=== PATIENT | female | born 1985 | race Caucasian/White ===

== ENCOUNTER 2020-12-06 12:59 | Emergency (ER) | payer OTHER, SELFPAY ==
[2020-12-06 13:17] VITALS: BP 110/61; PULSE 85; RESP 18; TEMP 36.8; O2SAT 99; BMI 24.1
--- NOTE | 2020-12-06 13:22 | PC.NURSE ---
PT STATES SHE IS 3 MONTHS DUE DATE IS 06/11/21 OBGYN AT [facility].
--- NOTE | 2020-12-06 13:30 | ED_ITS ---
HPI - Skin/Abscess/Foreign Bdy General Chief complaint: Skin/Abscess/Foreign Body Stated complaint: abscess Time Seen by Provider: 12/06/20 13:25 Source: patient Mode of arrival: ambulatory Limitations: no limitations History of Present Illness HPI narrative: Swelling and redness behind left ear times several days. No fevers or chills. Patient is currently 3 months followed at [facility]. No -related complaints MD complaint: abscess/boil Related Data Previous Rx's Medication Instructions Recorded clindamycin HCl 150 mg PO TID #21 cap 12/06/20 Allergies Allergy/AdvReac Type Severity Reaction Status Date / Time hydromorphone [Hydromorphone] Allergy Severe HIVES AND Verified 12/06/20 13:19 SWELLING codeine [CODEINE] Allergy Intermediate RASH Verified 12/06/20 13:19 amoxicillin [AMOXICILLIN] Allergy Unknown VOMIT Verified 12/06/20 13:19 Vicodin Allergy Unknown hives Verified 12/06/20 13:19 From Vicodin Allergy Severe HIVES AND Uncoded 07/11/20 15:49 SWELLING Dilaudid Allergy Unknown anaphylaxis Uncoded 09/22/11 00:00 Review of Systems Review of Systems: Yes all other systems are reviewed and are negative Constitutional: Constitutional: Reports no additional constitutional complaints, Denies body ache(s), Denies chills, Denies fever(s), Denies headache(s) and Denies weakness Eyes: Eyes: Reports no additional eye complaints and Denies change in vision ENT: Reports system reviewed and no additional complaints, except as documented, Denies dizziness, Denies headache(s), Denies nasal congestion, Denies nasal discharge and Denies neck pain Cardiovascular: Cardiovascular: Reports no additional cardiovascular complaints, Denies chest pain, Denies leg edema and Denies dyspnea Respiratory: Respiratory: Reports no additional respiratory complaints, Denies cough and Denies dyspnea Gastrointestinal: Gastrointestinal: Reports no additional gastrointestinal complaints, Denies abdominal pain, Denies diarrhea, Denies nausea and Denies vomiting Genitourinary: Genitourinary: Reports no additional female genitourinary complaints and Denies urinary incontinence Musculoskeletal: Musculoskeletal: Reports no additional musculoskeletal complaints, Denies back pain, Denies arthralgias, Denies joint swelling, Denies neck pain, Denies numbness and Denies tingling Integumentary/Breasts: Skin/Breast: Reports system reviewed and no additional complaints, except as docu, Reports furuncle, Reports swelling and Denies rash Neurologic: Reports system reviewed and no additional complaints, except as documented, Denies Abnormal speech present, Denies dizziness, Denies headache(s), Denies numbness, Denies tingling and Denies weakness PMFSH Past Medical History Attestation statement: The following information was validated with the patient. Source: old records reviewed and nursing notes reviewed Medical History No known health problems Social History Social History Advance Directives: Yes Advance Directives Information Provided: No Advance Directives on File: No Physical Exam Vital Signs: Vital Signs: Last Vital Signs Temp 98.3 F 12/06/20 13:17 Pulse 85 12/06/20 13:17 Resp 18 12/06/20 13:17 BP 110/61 12/06/20 13:17 Pulse Ox 99 12/06/20 13:17 Body Mass Index 24.1 Const: General: cooperative, healthy appearing, comfortable and no acute distress Orientation/consciousness: patient oriented x3 Limitations: no limitations HENMT: Other: Behind left ear there is a medium area of fluctuance, tenderness, erythema. Head: Yes normal to inspection Ears: hearing grossly normal bilaterally General nose exam: Normal external nose present Face and sinus: Yes normal facial exam Mouth: Normal oral and palatal mucosa present Throat: Yes posterior oropharynx normal Eyes: General: appearance normal, both eyes and all related structures Pupils: Equal, round and reactive pupils present Neck: Neck: Yes normal visual inspection Chest: Chest palpation & inspection: normal inspection of the chest Resp: Effort & Inspection: normal respiratory effort Auscultation: clear to auscultation bilaterally Cardio: Rate: regular rate Rhythm: regular rhythm Peripheral pulses: Peripheral pulses 2+ throughout GI: Inspection: Yes normal to inspection Palpation (GI): Soft to palpation and nontender Auscultation: normal bowel sounds Back/Spine/Pelvis: Thoracic/Lumbar Spine: thoracic and lumbar spine normal to inspection Skin: General skin exam: no rashes or lesions noted Neuro: General: patient oriented x3, no focal motor deficits and normal sensation to monofilament Cranial nerves: Yes Equal, round and reactive pupils present Cognition (Neuro): normal cognition Speech: No Abnormal speech present Gait exam (Neuro): Normal gait present Motor exam (neuro): 5/5 motor strength present throughout Extrem: General: Yes normal to inspection Course Course Course Narrative: Abscess behind left ear. Will need I&D. Currently 3 months . No -related complaints. 1415-See I&D note. Will start patient on oral antibiotics. Reviewed worrisome signs and symptoms when to return to the emergency depart ment. Comfortable discharge home. Procedures Abscess I/D Site: other (Post auricular) Side (if applicable): left Local Anesthetic: lidocaine 1% Technique: incised with blade Sent for culture/gram staining?: No Irrigation: No Packing used?: none MDM - Skin/Abscess/Foreign Bdy Medical Records Attestation: I reviewed the patient's medical records. Lab Data Attestation: I reviewed the patient's lab results. Discharge Plan Discharge Clinical Impression: Abscess of skin or subcutaneous tissue Qualifiers: Site of cutaneous abscess: unspecified site Qualified Code(s): L02.91 - Cutaneous abscess, unspecified Patient Disposition: Home, Self-Care Instructions: Abscess (ED) Additional Instructions: warm compresses and/or warm tea bags four times daily Prescriptions: New clindamycin HCl 150 mg capsule 150 mg PO TID Qty: 21 RF: 0 Referrals: Physician,Unknown [Primary Care Provider] - 2 days Interventions: ED Discharge Assessment Last Done: 12/06/20 14:36 Discharge Date/Time: 12/06/20 14:36
[2020-12-06] MEDS: Lidocaine HCl 1 % MPF 5 ML VIAL SUBCUT (13:42)
== END 2020-12-06 14:36 | disposition home or self-care (01) ==
PROVIDERS: Emergency Provider Emergency Medicine Emergency Medical Services
DX: O26.893 Other specified pregnancy related conditions, third trimester (principal); H60.02 Abscess of left external ear; Z3A.00 Weeks of gestation of pregnancy not specified
CPT/HCPCS: 10060; 99283; 99284

== ENCOUNTER 2021-02-27 22:24 | Emergency (ER) | payer OTHER, SELFPAY ==
[2021-02-27 22:27] VITALS: BP 100/54; PULSE 85; RESP 18; TEMP 36.7; O2SAT 98; BMI 29.2
--- NOTE | 2021-02-27 23:35 | ED.SKABFB ---
HPI - Skin/Abscess/Foreign Bdy General Chief complaint: Skin/Abscess/Foreign Body Stated complaint: Abscess Time Seen by Provider: 02/27/21 23:22 Source: patient Mode of arrival: ambulatory History of Present Illness HPI narrative: 35-year-old female here for wound check, denies any fevers, chills, limited range of motion at left elbow and reports that overall everything looks much better and she continues to take her antibiotics. Related Data Previous Rx's Medication Instructions Recorded clindamycin HCl 150 mg PO TID #21 cap 12/06/20 Allergies Allergy/AdvReac Type Severity Reaction Status Date / Time hydromorphone [Hydromorphone] Allergy Severe HIVES AND Verified 12/06/20 13:19 SWELLING codeine [CODEINE] Allergy Intermediate RASH Verified 12/06/20 13:19 amoxicillin [AMOXICILLIN] Allergy Unknown VOMIT Verified 12/06/20 13:19 Vicodin Allergy Unknown hives Verified 12/06/20 13:19 From Vicodin Allergy Severe HIVES AND Uncoded 07/11/20 15:49 SWELLING Dilaudid Allergy Unknown anaphylaxis Uncoded 09/22/11 00:00 Review of Systems Review of Systems: Pertinent positives and negatives as stated in HPI 10 point review of systems otherwise negative. PMFSH Past Medical History Source: nursing notes reviewed Medical History No known health problems Social History Social History Advance Directives: No Advance Directives Information Provided: No Patient : No Physical Exam Vital Signs: Vital Signs: Last Vital Signs Temp 98.0 F 02/27/21 22:27 Pulse 85 02/27/21 22:27 Resp 18 02/27/21 22:27 BP 100/54 L 02/27/21 22:27 Pulse Ox 98 02/27/21 22:27 Body Mass Index 29.2 VITAL SIGNS: Reviewed. GENERAL: Well developed, well nourished, in no acute distress. HEAD: Normocephalic/atraumatic NECK: Supple, no adenopathy LUNGS: Normal breath sounds. No adventitious sounds or accessory muscle use. SpO2<98> CARDIOVASCULAR: Regular rate and rhythm without noted murmurs ABDOMEN: Soft, non-tender, non-distended with bowel sounds. LEFT ANTECUBITAL: The site is much better when compared to images on patient's phone, there is no fluctuance, erythema and there is noted firmness in the deep tissue which is consistent with healing, neurovascularly intact distal, full range of motion noted at the elbow. NEUROLOGIC: Alert and oriented x 4. Course Course Course Narrative: 35-year-old female history and clinical presentation of well healing animal bite and currently on medications. There is no evidence of abscess or limitations in range of motion and patient continues to take antibiotics. She was reassured and discharged in stable condition. Discharge Plan Discharge Prescriptions: No Action clindamycin HCl 150 mg capsule 150 mg PO TID Qty: 21 RF: 0
[2021-02-27 23:50] VITALS: BP 96/58; PULSE 78; RESP 15; O2SAT 100
--- NOTE | 2021-02-27 23:59 | ED_ITS ---
HPI - Skin/Abscess/Foreign Bdy General Chief complaint: Skin/Abscess/Foreign Body Stated complaint: Abscess Time Seen by Provider: 02/27/21 23:22 Source: patient Mode of arrival: ambulatory History of Present Illness HPI narrative: 35-year-old gravid female with worsening left labial swelling and redness over the past 3 days despite attempting to use warm moist compresses. Patient states that this started as a folliculitis as had these in the past. Otherwise, she denies any fevers, chills. Related Data Previous Rx's Medication Instructions Recorded clindamycin HCl 150 mg PO TID #21 cap 12/06/20 Allergies Allergy/AdvReac Type Severity Reaction Status Date / Time hydromorphone [Hydromorphone] Allergy Severe HIVES AND Verified 12/06/20 13:19 SWELLING codeine [CODEINE] Allergy Intermediate RASH Verified 12/06/20 13:19 amoxicillin [AMOXICILLIN] Allergy Unknown VOMIT Verified 12/06/20 13:19 Vicodin Allergy Unknown hives Verified 12/06/20 13:19 From Vicodin Allergy Severe HIVES AND Uncoded 07/11/20 15:49 SWELLING Dilaudid Allergy Unknown anaphylaxis Uncoded 09/22/11 00:00 Review of Systems Review of Systems: Pertinent positives and negatives as stated in HPI 10 point review of systems is otherwise negative. PMFSH Past Medical History Medical History No known health problems Social History Social History Alcohol intake: never Smoking Status: Never smoker Use of substances other than those prescribed or required for medical reasons: No Advance Directives: No Advance Directives Information Provided: No Patient : No Physical Exam Vital Signs: Vital Signs: Last Vital Signs Temp 98.0 F 02/27/21 22:27 Pulse 78 02/27/21 23:50 Resp 15 02/27/21 23:50 BP 96/58 L 02/27/21 23:50 Pulse Ox 100 02/27/21 23:50 Body Mass Index 29.2 VITAL SIGNS: Reviewed. GENERAL: Well developed, well nourished, in no acute distress. HEAD: Normocephalic/atraumatic EYES: PERRLA, EOMI OROPHARYNX: no oral lesions noted, posterior pharynx clear NECK: Supple, no adenopathy LUNGS: Normal breath sounds. No adventitious sounds or accessory muscle use. SpO2<100> CARDIOVASCULAR: Regular rate and rhythm without noted murmurs ABDOMEN: Soft, non-tender, non-distended with bowel sounds. : Significant erythema, swelling at left labia extending into groin crease with noted fluctuance NEUROLOGIC: Alert and oriented x 4. Course Course Course Narrative: 35-year-old female with history and clinical presentation consistent with abscess secondary to folliculitis, no evidence to suggest Brittany's. Incision and drainage was performed with some expression of pus, however patient was unable to tolerate complete evacuation. She does have follow-up appointment in the morning with her nurse licensed practical and was strongly encouraged to have the area re-evaluated in the morning. Procedures Abscess I/D Site: other (Left labia) Side (if applicable): left Sedation/analgesia: other (LET) Local Anesthetic: lidocaine 2% Amount of anesthesia used (mL): 1 Technique: incised with blade (11) Amount of fluid expressed (mL): 10 Sent for culture/gram staining?: No Irrigation: No Packing used?: none Complications: pain Discharge Plan Discharge Clinical Impression: Abscess of skin or subcutaneous tissue Patient Disposition: Home, Self-Care Instructions: Abscess Incision and Drainage (DC) Additional Instructions: Resume all home medications as prescribed. Follow-up with your doctor 1st thing in the morning and have the groin area re-evaluated. Recommend continuing with warm, moist compresses every 6 hours. Do not hesitate to return to the emergency room should you develop acute worsening of redness, swelling at this area. Prescriptions: No Action clindamycin HCl 150 mg capsule 150 mg PO TID Qty: 21 RF: 0 Referrals: Milind Morales MD [Primary Care Provider] - 2 days (Re-evaluation of abscess left labia)
[2021-02-28] MEDS: Lidocaine/Epineph/Tetracaine 3 ML GEL.PF.APP 2 ML TOPICAL (00:29)
[2021-02-28] MEDS: Lidocaine HCl 2 % MPF 5 ML VIAL INFILTRATI (01:34)
== END 2021-02-28 01:46 | disposition home or self-care (01) ==
PROVIDERS: Emergency Provider Student in an Organized Health Care Education/Training Program; PCP Internal Medicine
DX: N76.4 Abscess of vulva (principal); Z79.899 Other long term (current) drug therapy
CPT/HCPCS: 56405; 99284

== ENCOUNTER 2021-07-10 17:03 | Emergency (ER) | payer OTHER, SELFPAY ==
[2021-07-10 17:09] VITALS: BP 97/66; PULSE 70; RESP 18; TEMP 37; O2SAT 98; BMI 42.0
--- NOTE | 2021-07-10 20:54 | ED.EAR ---
HPI - Ear Problem General Chief complaint: Ear Problems Stated complaint: EAR INFECTION Time Seen by Provider: 07/10/21 20:44 Source: patient and family Mode of arrival: ambulatory Limitations: no limitations History of Present Illness HPI Narrative: 36-year-old female came in for evaluation of left ear pain. This is a 36-year-old female prone to ear infection with multiple ear infections in the past came in with left ear pain since yesterday pain is localized to the left ear with no radiation, no dizziness, no vomiting, no fever, no chills. Related Data Previous Rx's Medication Instructions Recorded clindamycin HCl 150 mg capsule 150 mg PO TID #21 cap 12/06/20 Allergies Allergy/AdvReac Type Severity Reaction Status Date / Time hydromorphone [Hydromorphone] Allergy Severe HIVES AND Verified 07/10/21 17:09 SWELLING codeine [CODEINE] Allergy Intermediate RASH Verified 07/10/21 17:09 amoxicillin [AMOXICILLIN] Allergy Unknown VOMIT Verified 07/10/21 17:09 Vicodin Allergy Unknown hives Verified 07/10/21 17:09 From Vicodin Allergy Severe HIVES AND Uncoded 07/11/20 15:49 SWELLING Dilaudid Allergy Unknown anaphylaxis Uncoded 09/22/11 00:00 Review of Systems Review of Systems: All other systems are reviewed and are negative Constitutional: Reports as per HPI and Reports no additional constitutional complaints Eyes: Reports as per HPI and Reports no additional eye complaints Reports system reviewed and no additional complaints, except as documented Cardiovascular: Reports as per HPI and Reports no additional cardiovascular complaints Respiratory: Reports as per HPI and Reports no additional respiratory complaints Gastrointestinal: Reports as per HPI and Reports no additional gastrointestinal complaints Genitourinary: Reports no additional female genitourinary complaints Musculoskeletal: Reports no additional musculoskeletal complaints Skin/Breast: Reports system reviewed and no additional complaints, except as docu Psychiatric: Reports no additional psychiatric complaints Endocrine: Reports no additional endocrine complaints Hematologic/Lymphatic: Reports no additional hematologic/lymphatic complaints Allergic/Immunologic: Reports no additional allergic/immunologic complaints Reports system reviewed and no additional complaints, except as documented and Reports Abnormal speech present [facility] Past Medical History Medical History No known health problems Social History Social History Alcohol intake: never Advance Directives: No Physical Exam Vital Signs: Vital Signs: Last Vital Signs Temp 98.6 F 07/10/21 17:09 Pulse 70 07/10/21 17:09 Resp 18 07/10/21 17:09 BP 97/66 07/10/21 17:09 Pulse Ox 98 07/10/21 17:09 Body Mass Index 42.0 Vital signs have been reviewed as appeared to be correct. Blood pressure normal. Heart rate normal. Respiration rate normal. Temperature normal. Oxygen saturation normal. Appearance: Alert. Oriented X3. No acute distress. Head: Normal external exam. Normocephalic. Atraumatic. No Morrissey signs noted. No raccoon eyes noted Eyes: PERRLA. EOMI. Conjunctiva and sclera normal. Eyelids normal. ENT: Left ear TM is erythematous, external canal has no discharge, moderate amount of cerumen in the external canal. but Pharynx normal. Uvula midline. Moist mucous membranes. No trismus noted. No drooling noted. No muffled voice noted. Neck: Normal inspection. Neck supple. FROM. No adenopathy. Thyroid Normal. No meningeal signs. No neck mass noted. CVS: Normal heart rate and rhythm. Heart sound normal. No murmurs noted. Pulses normal throughout. Respiratory: No respiratory distress. Painless inspiration. Breath sounds normal. No wheezes/rales/rhonchi noted. Chest nontender. No accessory muscle usage noted or decreased air movement noted. Abdomen: Soft and nontender. Bowel sounds normal in all 4 quadrants. No distention noted. No organomegaly noted. No visible injury noted. Back: No CVA tenderness. Full range of motion noted. Skin: Skin warm and dry. Normal skin color. Normal skin turgor. No rashes/lesions/lacerations noted. Extremities: No lower extremity edema. Extremities exhibit normal range of motion. Extremities nontender. Neuro: Oriented X 3. Cranial nerve exam: II-XII are grossly intact No motor deficit. No sensory deficit. Reflexes normal. Course Course Course Narrative: Assessment and plan. 36-year-old female came in for evaluation for left ear pain, physical exam and patient's history is consistent with left ear infection. Start the patient on NSAIDs/Augmentin (patient had 1 time vomiting with amoxicillin in the past) will try Augmentin in the emergency department and to watch the patient for any side effect. Reevaluation(s) Reevaluation #1: Despite I explained to the patient that we need to give her Augmentin in the emergency department and watch her for 20 minutes make sure there is no side effect or allergy reaction for Augmentin but patient left before Augmentin was given. Time: 21:26 Discharge Plan Discharge Clinical Impression: Otitis media Patient Disposition: Home, Self-Care Instructions: Ear Infection (ED) Prescriptions: No Action clindamycin HCl 150 mg capsule 150 mg PO TID Qty: 21 RF: 0 Referrals: [facility] [Primary Care Provider] - 2 days
--- NOTE | 2021-07-10 21:02 | PC.NURSE ---
WENT TO GIVE MEDICATION AND PT WAS NO LONGER IN ROOM RETURNED TO [facility].
--- NOTE | 2021-07-10 21:03 | PC.NURSE ---
PT WAS NO LONGER IN ROOM AT MEDICATION PASS PT HAD ASKED SEVERAL TIME THE TIME FRAME OF WHEN THE DOCTOR WOULD SEE THEM AND THEY WERE TOLD THAT WE COULD NOT GIVE AN EXACT TIME BUT THEY SHOULD BE SEEN IN ORDER AND THEY WERE 2ND TO BE SEEN. DR. PALUMBO WENT IN TO SEE PT AND THEN HE ORDER MEDS AND THEY WERE ALREAD OUT OF THE ROOM BEFORE MED COULD BE PASSED.
--- NOTE | 2021-07-10 21:22 | PC.NURSE ---
DR PALUMBO WANTED PT TO BE WATCHED ON AUGMENTIN BUT PT LEFT BEFORE MEDICATION COULD BE GIVEN PT STATES IT CAUSES NAUSEA UNABLE TO WATCH PT SCRIPT SENT TO PHARMACY DR. HICKS AWARE.
== END 2021-07-10 21:38 | disposition left against medical advice (07) ==
PROVIDERS: Emergency Provider Emergency Medicine
DX: H66.92 Otitis media, unspecified, left ear (principal); Z79.899 Other long term (current) drug therapy
CPT/HCPCS: 99283

== ENCOUNTER 2021-09-19 15:06 | Emergency (ER) | payer OTHER, SELFPAY ==
[2021-09-19 15:52] VITALS: BP 116/69; PULSE 81; RESP 17; TEMP 36.8; O2SAT 100; BMI 27.6
--- NOTE | 2021-09-19 17:09 | PC.NURSE ---
PT NOT IN WAITING ROOM WHEN CALLED. CALLED PATIENT'S CELL PHONE AND LEFT A MESSAGE PATIENT WAS PREVIOUSLY WAITING IN HER CAR. SHE REPORTED I DIDN'T LIKE BE IN THE WAITING ROOM WITH PEOPLE VOMITING
== END 2021-09-19 18:21 | disposition left against medical advice (07) ==
PROVIDERS: Emergency Provider Emergency Medicine; PCP Internal Medicine
DX: L02.419 Cutaneous abscess of limb, unspecified (principal)
CPT/HCPCS: 99281; 99282

== ENCOUNTER 2021-09-19 20:49 | Emergency (ER) | payer OTHER, SELFPAY ==
[2021-09-19 21:07] VITALS: BP 112/55; PULSE 83; RESP 18; TEMP 36.8; O2SAT 96; BMI 27.6
--- NOTE | 2021-09-19 21:25 | ED.SKABFB ---
HPI - Skin/Abscess/Foreign Bdy General Chief complaint: Skin/Abscess/Foreign Body Stated complaint: Abscess Time Seen by Provider: 09/19/21 21:11 Source: patient Mode of arrival: ambulatory Limitations: no limitations History of Present Illness HPI narrative: 36-year-old female presents to the ER with the left inguinal abscess that has been present for about the last 7 days. She reports the pain is 10/10. She was here earlier this afternoon but left because of the wait. She is back after having a couple shots of hard liquor. She reports a history of several abscesses in this area. She was told by general surgeon that she needed to get in at procedure done to help prevent these abscesses from forming but she is scared to get the procedure done. She denies any fevers at home she attempted to drain the abscess with a safety pain without success. She has also been using warm compresses there several times a day and taking warm baths with no improvement. MD complaint: abscess/boil Onset (ago): week(s) (1) Tetanus up to date: yes Location: genitals Severity: severe Severity scale (1-10): 10 Quality: burning and aching Pain Consistency: constant Relieving factors: none Exacerbating factors: none Context: none Associated symptoms: denies other symptoms Treatments prior to arrival: attempted to drain pus at home Related Data Previous Rx's Medication Instructions Recorded clindamycin HCl 150 mg capsule 150 mg PO TID #21 cap 12/06/20 cephalexin 500 mg capsule 500 mg PO QID 7 Days #28 cap 09/19/21 doxycycline monohydrate 100 mg 100 mg PO BID #14 cap 09/19/21 capsule Allergies Allergy/AdvReac Type Severity Reaction Status Date / Time hydromorphone [Hydromorphone] Allergy Severe HIVES AND Verified 09/19/21 21:07 SWELLING codeine [CODEINE] Allergy Intermediate RASH Verified 09/19/21 21:07 amoxicillin [AMOXICILLIN] Allergy Unknown VOMIT Verified 09/19/21 21:07 Vicodin Allergy Unknown hives Verified 09/19/21 21:07 From Vicodin Allergy Severe HIVES AND Uncoded 09/19/21 21:07 SWELLING Dilaudid Allergy Unknown anaphylaxis Uncoded 09/19/21 21:07 Review of Systems Review of Systems: Constitutional: No Fever, No Chills Cardiovascular: No Chest Pain, No SOB Gastrointestinal: No Nausea, No Vomiting Genitourinary: No Dysuria, No Urinary Frequency, No Hematuria Skin: + Skin Lesions, No rash, +Boil/abscess Neuro: No Weakness, No Numbness Psych: + Anxiety/Panic, + Depression Heme/Lymph: No Bruising, No Lymphadenopathy PMFSH Past Medical History Medical History No known health problems Social History Social History Alcohol intake: never Advance Directives: No Advance Directives Information Provided: No Patient : No Physical Exam Vital Signs: Vital Signs: Last Vital Signs Temp 98.2 F 09/19/21 21:07 Pulse 83 09/19/21 21:07 Resp 18 09/19/21 21:07 BP 112/55 L 09/19/21 21:07 Pulse Ox 96 09/19/21 21:07 Body Mass Index 27.6 Appearance: Alert. Oriented X3. No acute distress. HEENT: normal inspection CVS: Normal heart rate and rhythm. Pulses normal. Respiratory: No respiratory distress. Skin: Skin warm and dry. Normal skin color. Normal skin turgor. Genitalia: Superior left mons pubis with a 3-4 cm tender, erythematous area with central fluctuance, surrounding erythema extends 2 cm around the area circumferentially. There are several well-healed scars from prior abscesses in this area. Extremities: Normal inspection, normal range of motion Neuro: Oriented X 3. Grossly normal, nonfocal. Multiple alcohol Course Course Course Narrative: 36-year-old female presenting to the ER with an inguinal abscess for last 1 week, significant increase in pain last 3 days. Area is indurated with central fluctuance and surrounding erythema consistent with abscess and cellulitis. Agreeable to drainage. Reevaluation(s) Reevaluation #1: Patient tearful but ultimately it tolerated incision and drainage with very foul smelling purulent material drained. Will cover with Keflex and doxycycline, 1st dose was given now. Advised to continue warm soaks to the area to help drain further infection. Encourage follow-up with General surgery for further evaluation. Patient stable for discharge home. Procedures Abscess I/D Site: other (Mons pubis) Side (if applicable): left Local Anesthetic: lidocaine 2% Amount of anesthesia used (mL): 1 Technique: incised with blade Sent for culture/gram staining?: No Irrigation: Yes Packing used?: none Complications: pain Critical Care Time Critical Care Time Critical Care Time: No Discharge Plan Discharge Clinical Impression: Abscess of skin or subcutaneous tissue Qualifiers: Site of cutaneous abscess: other site Qualified Code(s): L02.818 - Cutaneous abscess of other sites Patient Disposition: Home, Self-Care Instructions: Abscess Incision and Drainage (DC) Additional Instructions: Take the prescribed antibiotics starting tomorrow morning, you were given 1st dose today in the ER. Continued to use warm soaks and compresses to the area to help increase blood flow and help drain infection. Recommend following up with the general surgeon for further evaluation. If you develop new or worsening symptoms call 911 or come back to the ER for further evaluation. Prescriptions: New doxycycline monohydrate 100 mg capsule 100 mg PO BID Qty: 14 RF: 0 cephalexin 500 mg capsule 500 mg PO QID 7 Days Qty: 28 RF: 0 No Action clindamycin HCl 150 mg capsule 150 mg PO TID Qty: 21 RF: 0
[2021-09-19] MEDS: Lidocaine HCl 2 % MPF 5 ML VIAL INFILTRATI (21:28)
--- NOTE | 2021-09-19 22:06 | PC.NURSE ---
PT LEFT ROOM BEFORE PAPERWORK WAS COMPLETED AND BEFORE MEDICATION COULD BE GIVEN.
== END 2021-09-19 22:10 | disposition home or self-care (01) ==
PROVIDERS: Emergency Provider Internal Medicine; PCP Internal Medicine
DX: L02.215 Cutaneous abscess of perineum (principal)
CPT/HCPCS: 10060; 99284

== ENCOUNTER 2021-10-11 15:43 | Emergency (ER) | payer OTHER, SELFPAY | END 2021-10-11 18:59 | disposition left against medical advice (07) | PROVIDERS: Emergency Provider Emergency Medicine; PCP Internal Medicine | DX: R68.89 Other general symptoms and signs (principal) ==

== ENCOUNTER 2021-10-12 11:06 | Emergency (ER) | payer OTHER, SELFPAY | END 2021-10-12 21:15 | disposition left against medical advice (07) | PROVIDERS: Emergency Provider Emergency Medicine | DX: R69 Illness, unspecified (principal) ==

== ENCOUNTER 2023-09-12 15:03 | Emergency (ER) | payer OTHER, SELFPAY ==
[2023-09-12 15:28] VITALS: BP 103/68; PULSE 77; RESP 18; TEMP 36.9; O2SAT 99; BMI 24.6
--- NOTE | 2023-09-12 15:34 | ECG_ITS ---
Test Reason : UPPER ABD PAIN Blood Pressure : / mmHG Vent. Rate : 062 BPM Atrial Rate : 062 BPM P-R Int : 182 ms QRS Dur : 096 ms QT Int : 412 ms P-R-T Axes : 063 059 045 degrees QTc Int : 418 ms Normal sinus rhythm Low voltage QRS Incomplete right bundle branch block Borderline ECG When compared with ECG of 25-JAN-2010 15:53, No significant change was found Referred By: Lucas Mike Electronically Signed By:MACO KRAMER MD
--- NOTE | 2023-09-12 15:35 | ED.GENADULT ---
HPI - General Adult General Chief complaint: Abdominal Pain Stated complaint: Abd pain/Bilateral leg pain Related Data Previous Rx's Medication Instructions Recorded clindamycin HCl 150 mg capsule 150 mg PO TID #21 caps 12/06/20 cephalexin 500 mg capsule 500 mg PO QID 7 days #28 caps 09/19/21 doxycycline monohydrate 100 mg 100 mg PO BID #14 caps 09/19/21 capsule Allergies Allergy/AdvReac Type Severity Reaction Status Date / Time acetaminophen [From Vicodin] Allergy Severe Hives, Verified 09/12/23 15:28 swelling hydrocodone [From Vicodin] Allergy Severe Hives, Verified 09/12/23 15:28 swelling hydromorphone [Hydromorphone] Allergy Severe HIVES AND Verified 09/12/23 15:28 SWELLING codeine [CODEINE] Allergy Intermediate RASH Verified 09/12/23 15:28 amoxicillin [AMOXICILLIN] Allergy Unknown VOMIT Verified 09/12/23 15:28 PMFSH Past Medical History Medical History No known health problems Social History Social History Alcohol intake: never Advance Directives: No Advance Directives Information Provided: No Physical Exam ED Vital Signs: Vital Signs - 24 hr 09/12/23 15:28 Temperature 98.5 F Pulse Rate 77 Respiratory Rate 18 Blood Pressure 103/68 Pulse Oximetry 99 Oxygen Delivery Method Room Air BMI result Body Mass Index 24.6 Course Course Course Narrative: RME: 38 yold female presents tot he ED For upper abdominal pain, with nausea and vomitting. patient states sharp/acid burning sensation. no lower abdominal pain. patient is on her menstruation and tubes are rremoved. labs and US of abdomen ordered Medical Decision Making Lab Data 09/12/23 15:48 09/12/23 15:47 Labs: Lab Results 09/12/23 09/12/23 Range/Units 15:47 15:48 WBC 6.4 (4.8-10.8) X10*3/uL RBC 3.96 L (4.20-5.50) X10*6/uL Hgb 11.4 L (12.0-16.0) g/dl Hct 35.1 L (37.0-47.0) % MCV 88.6 (80.0-98.0) fL MCH 28.8 (27.0-33.0) pg MCHC 32.5 (31.0-35.0) g/dl RDW 12.2 (11.0-16.0) % Plt Count 144 L (160-400) X10*3/uL MPV 10.8 (9.4-12.3) fL Immature Gran % (Auto) 0.2 (0.0-0.4) % Neut % (Auto) 56.9 (45-73) % Lymph % (Auto) 28.9 (20-40) % Candler % (Auto) 7.1 (2-11) % Eos % (Auto) 6.4 H (0-4) % Baso % (Auto) 0.5 (0-2) % Lymph # (Auto) 1.8 (1.2-4.9) X10*3/uL Candler # (Auto) 0.5 (0.1-1.2) X10*3/uL Eos # (Auto) 0.4 (0.0-0.4) X10*3/uL Baso # (Auto) 0.0 (0.0-0.2) X10*3/uL Abs Immat Gran (auto) 0.01 (0.00-0.03) X10*3/uL Absolute Neuts (auto) 3.6 (2.0-8.3) x10*3/uL Absolute Nucleated RBC 0.000 (0.0-0.012) X10*3/uL Nucleated RBC % (auto) 0.0 (0.0-0.2) /100WBC PT 11.8 (11.1-13.3) SEC INR 1.0 (0.9-1.1) APTT 32.2 (26.0-36.4) SEC Sodium 143 (135-145) mmol/L Potassium 3.6 (3.3-5.1) mmol/L Chloride 109 H (96-108) mmol/L Carbon Dioxide 27 (22-29) mmol/L Anion Gap 11 L (12-20) BUN 13 (9-16) mg/dL Creatinine 0.78 (0.5-1.4) mg/dL Estim Creat Clear Calc 85.8 Estimated GFR > 60 Random Glucose 88 (60-115) mg/dL Calcium 8.2 L (8.4-10.2) mg/dL Total Bilirubin 0.5 (0.0-1.0) mg/dL AST 15 (5-31) U/L ALT 7 (0-31) U/L Alkaline Phosphatase 52 (39-117) U/L Troponin I High Sens 4.4 (<3.5-17.0) ng/L Total Protein 6.3 L (6.5-8.0) g/dL Albumin 4.0 (3.5-5.0) g/dL Lipase 16 (8-78) U/L Beta HCG, Quant < 2 mIU/mL Discharge Plan Discharge Clinical Impression: Abdominal pain Patient Disposition: Left W/O Completing Treatment Prescriptions: No Action clindamycin HCl 150 mg capsule 150 mg PO TID Qty: 21 0RF doxycycline monohydrate 100 mg capsule 100 mg PO BID Qty: 14 0RF cephalexin 500 mg capsule 500 mg PO QID 7 Days Qty: 28 0RF Discharge Date/Time: 09/12/23 20:54
[2023-09-12 15:52] LABS: MANUAL DIFF FLAG NO
[2023-09-12 16:01] LABS: Basophils Percent Auto 0.5 % (0-2); Eosinophils Absolute Auto 0.4 X10*3/uL (0.0-0.4); Eosinophils Percent Auto 6.4 % (0-4); Hematocrit 35.1 % (37.0-47.0); Hemoglobin 11.4 g/dl (12.0-16.0); Imm Gran Abs Auto 0.01 X10*3/uL (0.00-0.03); Imm Gran Pct Auto 0.2 % (0.0-0.4); Lymphocytes Absolute Auto 1.8 X10*3/uL (1.2-4.9); Lymphocytes Percent Auto 28.9 % (20-40); Mean Corpuscular HGB Conc 32.5 g/dl (31.0-35.0); Mean Corpuscular Hemoglobin 28.8 pg (27.0-33.0); Mean Corpuscular Volume 88.6 fL (80.0-98.0); Mean Platelet Volume 10.8 fL (9.4-12.3); Monocytes Absolute Auto 0.5 X10*3/uL (0.1-1.2); Monocytes Percent Auto 7.1 % (2-11); Neutrophils Absolute Auto 3.6 x10*3/uL (2.0-8.3); Neutrophils Percent Auto 56.9 % (45-73); Platelet Count 144 X10*3/uL (160-400); Red Blood Count 3.96 X10*6/uL (4.20-5.50); Red Cell Distribution Width 12.2 % (11.0-16.0); White Blood Count 6.4 X10*3/uL (4.8-10.8)
[2023-09-12 16:06] LABS: Prothrombin Time 11.8 SEC (11.1-13.3)
[2023-09-12 16:09] LABS: Partial Thromboplastin Time 32.2 SEC (26.0-36.4)
[2023-09-12 16:26] LABS: Alanine Aminotransferase 7 U/L (0-31); Alkaline Phosphatase 52 U/L (39-117); Anion Gap 11 (12-20); Aspartate Amino Transferase 15 U/L (5-31); Bilirubin Total 0.5 mg/dL (0.0-1.0); Blood Urea Nitrogen 13 mg/dL (9-16); Calcium 8.2 mg/dL (8.4-10.2); Carbon Dioxide 27 mmol/L (22-29); Chloride 109 mmol/L (96-108); Creatinine Clr Calc Pharmacy 85.8; Estimated Glomerular Filt Rate > 60; Glucose Random 88 mg/dL (60-115); Lipase 16 U/L (8-78); Potassium 3.6 mmol/L (3.3-5.1); Sodium 143 mmol/L (135-145); Total Protein 6.3 g/dL (6.5-8.0); Troponin-I High Sensitivity 4.4 ng/L (<3.5-17.0)
[2023-09-12 16:27] LABS: HCG Quantitative < 2 mIU/mL
--- OUTSIDE RECORDS SUMMARY | 2023-09-12 20:51 | XMS_ITS | Continuity of Care Document ---
Author Name Unknown Organization [facility] Address [address] [place] [id number]- Care Team Providers Care Doctor Podiatric Medicine Name Role Phone Andrew TSONE, Milind Primary Care Physician Encounter [facility] Date(s): 04/11/21 - 06/12/[address] [address]- Attending Physician: Not on Staff, Attending MD Allergies, Adverse Reactions, Alerts Substance Reaction Severity Status codeine Active amoxicillin Active Dilaudid Hives C/O: a swelling Active Vicodin Active Adhesive Bandage Active Immunizations Given and Recorded Vaccine Date Status Refusal Reason tetanus/diphtheria/pertussis, acel(Tdap) 03/14/21 Given tetanus/diphtheria/pertussis, acel(Tdap) 04/03/12 Given Medications acetaminophen 325 mg oral tablet 650 mg, By Mouth, Every 4 hours, (1-3), may give 325mg per patient preference and re-dose with 325mg within 4 hours, if needed. Patient should only receive a total of 650mg of Acetaminophen every 4 hours., Refills 0, Maintenance, 05/12/21 6:34:00 ED... Start Date: 05/12/21 Status: Ordered acetaminophen 325 mg oral tablet 650 mg, By Mouth, Every 6 hours, PRN, (1-3), may give 325mg per patient preference and re-dose [id number] within 4 hours, if needed. Patient should only receive a total of 650mg of Acetaminophen every 4 hours., # 50 tablet, Refills 0, Tot. Refills 0... Start Date: 05/14/21 Status: Ordered bisacodyl 10 mg rectal suppository 1 supp = 10 mg, Rectally, Daily, PRN for constipation, # 10 supp, 0 Refills, Maintenance, 03/14/21 14:51:00 EDT, Suppository, Partial fill upon patient request if the prescription is for a schedule II opioid drug. Start Date: 03/14/21 Status: Ordered docusate sodium 100 mg oral capsule 1 capsule = 100 mg, By Mouth, 2 times a day, PRN as needed for constipation, # 180 capsule, 3 Refills, Maintenance, 02/06/21 9:12:00 EDT, Capsule, [facility]/pharmacy #[id number], Partial fill upon patient request if the prescription is for a schedule II opioid dr... Start Date: 02/06/21 Status: Ordered Dulcolax 10 mg rectal suppository 1 supp = 10 mg, Rectally, Daily, PRN as needed for constipation, # 10 supp, 0 Refills, Maintenance,05/14/21 0:20:00 EDT, Suppository, [facility], Partial fill upon patient request if the prescription is for a schedule II opioid dr... Start Date: 05/14/21 Status: Ordered ferrous sulfate 325 mg oral enteric coated tablet 325 mg, 1, tablet, By Mouth, Daily, # 90 tablet, Refills 2, Tot. Refills 2, Maintenance, 02/06/21 9:12:00 EDT, Route to Pharmacy Electronically, [facility]/pharmacy #[id number], Partial fill upon patient request if the prescription is for a schedule II opioid drug... Start Date: 02/06/21 Status: Ordered ibuprofen 800 mg oral tablet 800 mg, 1, tablet, By Mouth, Every 8 hours, # 30 tablet, Refills 0, Tot. Refills 0, Maintenance, 05/12/21 6:38:00 EDT, Route to Pharmacy Electronically, [facility], Partial fill upon patient request if the prescription is for a ellyn... Start Date: 05/12/21 Status: Ordered ibuprofen 800 mg oral tablet 800 mg, 1, tablet, By Mouth, Every 8 hours, PRN, (4-6), may give 400mg per patient preference and re-dose with 400mg within 8 hours if needed. Patient should only receive a total of 800mg of Ibuprofen every 8 hours., # 30 tablet, Refills 0, Tot. Ref... Start Date: 05/14/21 Status: Ordered levothyroxine 0.05 mg oral tablet 1 tablet = 50 mcg, By Mouth, Daily, # 90 tablet, 1 Refills, Maintenance, 02/24/21 12:06:00 EDT, Tablet, [facility], Partial fill upon patient request if the prescription is for a schedule II opioid drug., 158, cm, 02/24/21 10:58:00... Start Date: 02/24/21 Status: Ordered lidocaine 1.8% topical film 1 patch, Topically, Daily, leave on up to 12 hours, # 8 each, 0 Refills, Maintenance, 05/14/21 0:25:00 EDT, Film, [facility], Partial fill upon patient request if the prescriptionis for a schedule II opioid drug., 1 patch Topicall... Start Date: 05/14/21 Status: Ordered MiraLax oral powder for reconstitution = 17 Gm, By Mouth, Daily, dissolve in water before taking, # 255 Gm, 0 Refills, Maintenance, 05/12/21 6:39:00 EDT, REC Powder, [facility], Partial fill upon patient request if theprescription is for a schedule II opioid drug., 17... Start Date: 05/12/21 Status: Ordered MiraLax oral powder for reconstitution = 17 Gm, By Mouth, Daily, dissolve in water before taking, # 255 Gm, 0 Refills, Maintenance, 12/20/20 16:30:00 EST, REC Powder, [facility], Partial fill upon patient request if the prescription is for a schedule II opioid drug., 17... Start Date: 12/20/20 Status: Ordered oxyCODONE 5 mg oral tablet 5 mg, 1, tablet, By Mouth, Every 6 hours, PRN, # 15 tablet, Refills 0, Tot. Refills 0, Maintenance,as needed for pain, 05/12/21 6:39:00 EDT, Route to Pharmacy Electronically, [facility], Partial fill upon patient request if the pr... Start Date: 05/12/21 Status: Ordered Multivitamins with Folic Acid 0.8 mg oral capsule 1 capsule, By Mouth, Daily, # 90 capsule, 3 Refills, Maintenance, 02/06/21 9:12:00 EDT, Capsule, [id number], Please sub for any vit covered by insurance if needed, 1 capsule By MouthDaily, 158, cm, 01/16/21 16:22:00 EDT, Height, 66.1... Start Date: 02/06/21 Status: Ordered senna - oral tablet 2 tablet, By Mouth, Daily at bedtime, PRN for constipation, # 60 tablet, 0 Refills, Maintenance, 05/12/21 6:39:00 EDT, Tablet, [facility], Partial fill upon patient request if theprescription is for a schedule II opioid drug., 158... Start Date: 05/12/21 Status: Ordered simethicone 80 mg oral tablet 1 tablet = 80 mg, Chew, 3 times a day after meals, PRN as needed for gas, # 60 tablet, 0 Refills, Maintenance, 05/12/21 6:39:00 EDT, Tablet, [facility], Partial fill upon patient request if the prescription is for a schedule II opi... Start Date: 05/12/21 Status: Ordered Sitz Bath See Instructions, # 1 each, Maintenance, Fill with warm water, soak for 15 to 20 minutes, 05/14/21 0:21:00 EDT, Supply, 158, cm, 05/12/21 0:59:00 EDT, Height, 74.3, kg, 05/06/21 16:29:00 EDT, Dry Weight Start Date: 05/14/21 Status: Ordered Tylenol 325 mg oral tablet 650 mg, 2, tablet, By Mouth, Every 4 hours, PRN, # 80 tablet, Refills 0, Tot. Refills 0, Maintenance, for pain, 05/12/21 6:38:00 EDT, Route to Pharmacy Electronically, [facility],Partial fill upon patient request if the prescripti... Start Date: 05/12/21 Status: Ordered Problem List Condition Effective Dates Status Health Status Inform ant Abnormal Pap smear of cervix(Confirmed) Active H/O Anemia(Confirmed) Active Anemia in mother complicatin g , childbirth AND/OR puerperium(Confirmed) 1 03/14/21 Active Asthma(Confirmed) Active Bipolar disease, chronic(Confirmed) 2 Active Bipolar disease in (Confirmed) Active ASCUS with positive high ris k human papilloma virus (HPV)(Confirmed) 07/18/20 Active Constipation(Confirmed) Active gastroschisis in pregn william, antepartum(Confirmed) Active H/O: depression(Confirmed) 3 03/14/21 Active H/O: hypothyroidism(Confirmed) Active H/O premature delivery(Confirmed) Active History of delivery, currently (Confirmed) Active H/O (PTSD)(Confirmed) 4 Active H/O seizures(Confirmed) 5 Active History of ITP(Confirmed) Active Hypothyroidism, adult(Confirmed) 6 Active Immune thrombocytopenia(Confirmed) 7 Active Tobacco use in (Confirmed) Active Anxiety and depression(Confirmed) 8 Active 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 3Problem added by Discern Expert 4Pt reports during telehealth OBI visit that she is not currently engaged with mental health services nor does she want to at this time - N services declined. 5per pt's own history during telehealth OBI visit. 6Pt reports during telehealth OBI visit that she has hx of hypothyroidsm and is currently unmanaged at this time. 7Pt reports during telehealth OBI visit that she has hx of ITP and is currently unmanaged at this time. 8Pt reports during telehealth OBI visit that she is not currently engaged with mental health services nor does she want to at this time - N services declined. 9Problem added by Discern Expert Social History Social History Type Response Smoking Status 10 or more cigarette s (1/2 pack or more)/day in last 30 days entered on: 02/13/21 Sex
--- OUTSIDE RECORDS SUMMARY | 2023-09-12 20:51 | XMS_ITS | Continuity of Care Document ---
Author Name Unknown Organization [facility] Address [address] [place] [id number] Care Team Providers Care Sql Manager Name Role Phone Andrew STONE, Milind Primary Care Physician [phone] Encounter [facility] Date(s): 02/17/21 - 04/03/21 [facility] [address] [place] [id number] Attending Physician: Esperanza Guzman NP Admitting Physician: Thomas CLARKE, Esperanza Referring Physician: Lacy Juares DO Allergies, Adverse Reactions, Alerts Substance Reaction Severity Status codeine Active amoxicillin Active Dilaudid Hives C/O: a swelling Active Vicodin Active Adhesive Bandage Active Immunizations Given and Recorded Vaccine Date Status Refusal Reason tetanus/diphtheria/pertussis, acel(Tdap) 03/14/21 Given tetanus/diphtheria/pertussis, acel(Tdap) 04/03/12 Given Medications bisacodyl 10 mg rectal suppository 1 supp [...] Refills, Maintenance, 02/06/21 9:12:00 EDT, Capsule, [id number], Partial fill upon patient request if the prescription is for a schedule II opioid . Start Date: 02/06/21 Status: Ordered ferrous sulfate 325 mg oral enteric coated tablet 325 mg, 1, tablet, By Mouth, Daily, # 90 tablet, Refills 2, Tot. Refills 2, Maintenance, 02/06/21 9:12:00 EDT, Route to Pharmacy Electronically, [facility]/pharmacy #[id number], Partial fill upon patient request if the prescription is for a schedule II opioid drug... Start Date: 02/06/21 Status: Ordered Freestyle Lite lancets Freestyle Lite lancets, See Instructions, # 200 each, Refills 0, Tot. Refills 0, Maintenance, glucose monitoring 4 times a day during , 03/17/21 10:53:00 EDT, Compound, 158, cm, 03/14/21 16:01:00 EDT, Height, 72.6, kg, 03/14/21 16:01:00 EDT,... Start Date: 03/17/21 Status: Ordered Freestyle Lite Monitor See Instructions, # 1 each, Maintenance, For glucose monitoring during , 03/17/21 10:53:00EDT, Compound, 158, cm, 03/14/21 16:01:00 EDT, Height, 72.6, kg, 03/14/21 16:01:00 EDT, Dry Weight Start Date: 03/17/21 Status: Ordered Freestyle Lite Strips Freestyle Lite Strips, See Instructions, # 200 each, Refills 0, Tot. Refills 0, Maintenance, Glucose monitoring four times a day during , 03/17/21 10:53:00 EDT, Compound, 158, cm, 03/14/21 16:01:00 EDT, Height, 72.6, kg, 03/14/21 16:01:00 EDT... Start Date: 03/17/21 Status: Ordered HYDROXYprogesterone 250 mg/mL intramuscular solution 1 mL = 250 mg, Intramuscular, Every week, # 4 each, 5 Refills, Soft Stop, 12/20/20 11:48:00 EST, Solution, [facility], Partial fill upon patient request if the prescription is for a schedule II opioid drug., 158, cm, 12/20/20 8:04:00... Start Date: 12/20/20 Stop Date: 04/09/23 Status: Ordered levothyroxine 0.05 mg oral tablet 1 tablet = 50 mcg, By Mouth, Daily, # 90 tablet, 1 Refills, Maintenance, 02/24/21 12:06:00 EDT, Tablet, [facility], Partial fill upon patient request if the prescription is for a schedule II opioid drug., 158, cm, 02/24/21 10:58:00... Start Date: 02/24/21 Status: Ordered levothyroxine 50 mcg (0.05 mg) oral capsule 1 capsule = 50 mcg, By Mouth, Daily, # 90 capsule, 1 Refills, Maintenance, 02/16/21 12:45:00 EDT, Capsule, [facility]/pharmacy #[id number], Partial fill upon patient request if the prescription is for a schedule II opioid drug., 158, cm, 02/14/21 9:09:00 EDT, Heig... Start Date: 02/16/21 Status: Ordered loratadine 10 mg oral tablet 1, tablet, By Mouth, Daily, # 30 tablet, Refills 1, Tot. Refills 0, Maintenance, 03/10/21 6:57:00 EDT, Route to Pharmacy Electronically, [id number], 158, cm, 03/03/21 11:11:00 EDT, Height, 70.5,kg, 02/13/21 12:38:00 EDT, Dry Weight Start Date: 03/10/21 Status: Ordered MiraLax oral powder for reconstitution = 17 Gm, By Mouth, Daily, dissolve in water before taking, # 255 Gm, 0 Refills, Maintenance, 12/20/20 16:30:00 EST, REC Powder, [facility], Partial fill upon patient request if the prescription is for a schedule II opioid drug., 17... Start Date: 12/20/20 Status: Ordered Multivitamins with Folic Acid 0.8 mg oral capsule 1 capsule, By Mouth, Daily, # 90 capsule, 3 Refills, Maintenance, 02/06/21 9:12:00 EDT, Capsule, [facility]/pharmacy #[id number], Please sub for any vit covered by insurance if needed, 1 capsule By MouthDamichell, 158, cm, 01/16/21 16:22:00 EDT, Height, 66.1... Start Date: 02/06/21 Status: Ordered Problem List Condition Effective Dates [...] and depression(Confirmed) 8 Active H/O Placental abruption(Confirmed) 2009 Active (Confirmed) Active Social problem(Confirmed) Active Substance [...]
--- OUTSIDE RECORDS SUMMARY | 2023-09-12 20:51 | XMS_ITS | Continuity of Care Document ---
Author Name Unknown Organization [facility] Address [address] [place] [id number]- Care Team Providers Care Proposal Specialist Name Role Phone Andrew STONE, Milind Primary Care Physician [phone] Encounter [facility] [place] Date(s): 01/24/21 - 02/23/21 [facility] [address] [place] [id number] Attending Physician: Marie Flores Admitting Physician: Admtr, Ar8 Referring Physician: Admtr, Ar8 Allergies, Adverse Reactions, Alerts Substance Reaction Severity Status codeine Active amoxicillin Active Dilaudid Hives C/O: a swelling Active Vicodin Active Immunizations Given and Recorded Vaccine Date Status Refusal Reason tetanus/diphtheria/pertussis, acel(Tdap) 04/03/12 Given Medications docusate sodium 100 mg oral capsule 1 capsule = 100 mg, By Mouth, 2 times a day, PRN as needed for constipation, # 180 capsule, 3 Refills, Maintenance, 02/06/21 9:12:00 EDT, Capsule, [facility]/pharmacy #[id number], Partial fill upon patient request if the prescription is for a schedule II opioid drFara. Start Date: 02/06/21 Status: Ordered ferrous sulfate 325 mg oral enteric coated tablet 325 mg, 1, tablet, By Mouth, Daily, # 90 tablet, Refills 2, Tot. Refills 2, Maintenance, 02/06/21 9:12:00 EDT, Route to Pharmacy Electronically, [facility]/pharmacy #[id number], Partial fill upon patient request if the prescription is for a schedule II opioid drug... Start Date: 02/06/21 Status: Ordered HYDROXYprogesterone 250 mg/mL intramuscular solution 1 mL = 250 mg, Intramuscular, Every week, # 4 each, 5 Refills, Soft Stop, 12/20/20 11:48:00 EST, Solution, [facility], Partial fill upon patient request if the prescription is for a schedule II opioid drug., 158, cm, 12/20/20 8:04:00... Start Date: 12/20/20 Stop Date: 04/09/23 Status: Ordered levothyroxine 50 mcg (0.05 mg) oral capsule 1 capsule = 50 mcg, By Mouth, Daily, # 90 capsule, 1 Refills, Maintenance, 02/16/21 12:45:00 EDT, Capsule, [facility]/pharmacy #[id number], Partial fill upon patient request if the prescription is for a schedule II opioid drug., 158, cm, 02/14/21 9:09:00 EDT, Heig... Start Date: 02/16/21 Status: Ordered MiraLax oral powder for reconstitution = 17 Gm, By Mouth, Daily, dissolve in water before taking, # 255 Gm, 0 Refills, Maintenance, 12/20/20 16:30:00 EST, REC Powder, [facility], Partial fill upon patient request if the prescription is for a schedule II opioid drug., 17... Start Date: 12/20/20 Status: Ordered Multivitamins with Folic Acid 0.8 mg oral capsule 1 capsule, By Mouth, Daily, # 90 capsule, 3 Refills, Maintenance, 02/06/21 9:12:00 EDT, Capsule, [facility]/pharmacy #[id number], Please sub for any vit covered by insurance if needed, 1 capsule By MouthDaily, 158, cm, 01/16/21 16:22:00 EDT, Height, 66.1... Start Date: 02/06/21 Status: Ordered Problem List Condition Effective Dates Status Health Status Inform ant Abnormal Pap smear - ASCUS(Confirmed) 07/18/20 Active H/O Anemia(Confirmed) Active Asthma(Confirmed) Active Constipation(Confirmed) Active H/O varicella as a child(Confirmed) Active H/O: hypothyroidism(Confirmed) 1 Active H/O (PTSD)(Confirmed) 2 Active H/O seizures(Confirmed) 3 Active H/O hemorrhoids(Confirmed) Active H/O ITP(Confirmed) 4 Active H/O Bipolar disorder(Confirmed) 5 Active Anxiety and depression(Confirmed) 6 Active H/O Placental abruption(Confirmed) 2008 Active H/O Suicide ideation(Confirmed) 7 2008 Active 1Pt reports during telehealth OBI visit that she has hx of hypothyroidsm and is currently unmanaged at this time. 2Pt reports during telehealth OBI visit that she is not currently engaged with mental health services nor does she want to at this time - [facility] services declined. 3per pt's own history during telehealth OBI visit. 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 5Pt reports during telehealth OBI visit that she is not currently engaged with mental health services nor does she want to at this time - [facility] services declined. 6Pt reports during telehealth OBI visit that she is not currently engaged with mental health services nor does she want to at this time - [facility] services declined. 7CIS note in 2009 - cut wrists Social History Social History Type Response Smoking Status 10 or more cigarette s (1/2 pack or more)/day in last 30 days entered on: 02/13/21 Sex
--- OUTSIDE RECORDS SUMMARY | 2023-09-12 20:51 | XMS_ITS | Continuity of Care Document ---
Author Name Unknown Organization [facility] Address [address] [place] [id number]- Care Team Providers Care Preconstruction Manager Name Role Phone Andrew STONE, Milind Primary Care Physician [phone] [place] [facility]03[place]21 - 05/03/21 [facility] [address] [place] [address]- Attending Physician: Marie Flores Admitting Physician: AdmtrMarie Referring Physician: Admtr, Ar8 Allergies, Adverse Reactions, [...] Refills, Maintenance, 02/06/21 9:12:00 EDT, Capsule, [id number], Partial fill upon patient request if the prescription is for a schedule II opioid . Start Date: 02/06/21 Status: Ordered ferrous sulfate 325 mg oral enteric coated tablet 325 mg, 1, tablet, By Mouth, Daily, # 90 tablet, Refills 2, Tot. Refills 2, Maintenance, 02/06/21 9:12:00 EDT, Route to Pharmacy Electronically, [facility]/pharmacy #[id number], Partial fill upon patient request if the [...] 16:01:00 EDT... Start Date: 03/17/21 Status: Ordered FREESTYLE LITE TEST STRIP FREESTYLE LITE TEST STRIP, See Instructions, # 200 Unknown, 0 Refills, Maintenance, GLUCOSE MONITORING FOUR TIMES A DAY DURING , 158, cm, 04/14/21 11:10:00 EDT, Height, 74.3, kg, 04/20/21 20:37:00 EDT, Dry Weight Start Date: 04/27/21 Status: Ordered HYDROXYprogesterone 250 mg/mL intramuscular solution 1 mL = 250 mg, Intramuscular, Every week, # 4 each, 5 Refills, Soft Stop, 12/20/20 11:48:00 EST, Solution, [facility], Partial fill upon patient request if the prescription is for a schedule II opioid drug., 158, cm, 12/20/20 8:04:00... Start Date: 12/20/20 Stop Date: 04/09/23 Status: Ordered levothyroxine 0.05 mg oral tablet 1 tablet = 50 mcg, By Mouth, Daily, # 90 tablet, 1 Refills, Maintenance, 02/24/21 12:06:00 EDT, Tablet, [facility], Partial fill upon patient request if the prescription is for a schedule II opioid drug., 158, cm, 02/24/21 10:58:00... Start Date: 02/24/21 Status: Ordered levothyroxine 50 mcg (0.05 mg) oral capsule 1 capsule = 50 mcg, By Mouth, Daily, # 90 capsule, 1 Refills, Maintenance, 02/16/21 12:45:00 EDT, Capsule, [facility]/pharmacy #[id number], Partial fill upon patient request if the prescription is for a schedule II opioid drug., 158, cm, 02/14/21 9:09:00 EDT, Heig... Start Date: 02/16/21 Status: Ordered loratadine 10 mg oral tablet 1, tablet, By Mouth, Daily, # 30 tablet, Refills 1, Tot. Refills 0, Maintenance, 04/08/21 18:40:00 EDT, Route to Pharmacy Electronically, [id number], 158, cm, 04/07/21 10:47:00 EDT, Height, 72.2, kg, 03/29/21 22:13:00 EDT, Dry Weight Start Date: 04/08/21 Status: Ordered MiraLax oral powder for reconstitution = 17 Gm, By Mouth, Daily, dissolve in water before taking, # 255 Gm, 0 Refills, Maintenance, 12/20/20 16:30:00 EST, REC Powder, [facility], Partial fill upon patient request if the prescription is for a schedule II opioid drug., 17... Start Date: 12/20/20 Status: Ordered Multivitamins with Folic Acid 0.8 mg oral capsule 1 capsule, By Mouth, Daily, # 90 capsule, 3 Refills, Maintenance, 02/06/21 9:12:00 EDT, Capsule, [id number], Please sub for any vit covered by [...] she want to at this time - [facility] services declined. 5per pt's own history during [...] she want to at this time - [facility] services declined. 9Problem added by Discern Expert Social History Social History Type Response Smoking Status 10 or more cigarette s (1/2 pack or more)/day in last 30 days entered on: 02/13/21 Sex
--- OUTSIDE RECORDS SUMMARY | 2023-09-12 20:51 | XMS_ITS | Continuity of Care Document ---
Author Name Unknown Organization [facility] Address [address] [place] [address]- Care Team Providers Care Windows Security Engineer Name Role Phone Andrew STONE, Milind Primary Care Physician Encounter [facility] [place] Date(s): 03/19/21 - 04/18/21 [email or web address] [address] [place] [address]- Allergies, Adverse Reactions, Alerts Substance Reaction Severity [...] Refills, Maintenance, 02/06/21 9:12:00 EDT, Capsule, [id number], Partial fill upon patient request if the prescription is for a schedule II opioid . Start Date: 02/06/21 Status: Ordered ferrous sulfate 325 mg oral enteric coated tablet 325 mg, 1, tablet, By Mouth, Daily, # 90 tablet, Refills 2, Tot. Refills 2, Maintenance, 02/06/21 9:12:00 EDT, Route to Pharmacy Electronically, [facility]/pharmacy #[id number], Partial fill upon patient request if the [...] Refills, Soft Stop, 12/20/20 11:48:00 EST, Solution, [facility], Partial fill upon patient request if the prescription is for a schedule II opioid drug., 158, cm, 12/20/20 8:04:00... Start Date: 12/20/20 Stop Date: 04/09/23 Status: Ordered levothyroxine 0.05 mg oral tablet 1 tablet = 50 mcg, By Mouth, Daily, # 90 tablet, 1 Refills, Maintenance, 02/24/21 12:06:00 EDT, Tablet, [facility], Partial fill upon patient request if the prescription is for a schedule II opioid drug., 158, cm, 02/24/21 10:58:00... Start Date: 02/24/21 Status: Ordered levothyroxine 50 mcg (0.05 mg) oral capsule 1 capsule = 50 mcg, By Mouth, Daily, # 90 capsule, 1 Refills, Maintenance, 02/16/21 12:45:00 EDT, Capsule, [facility]/pharmacy #[id number], Partial fill upon patient request if the prescription is for a schedule II opioid drug., 158, cm, 02/14/21 9:09:00 EDT, Heig... Start Date: 02/16/21 Status: Ordered loratadine 10 mg oral tablet 1, tablet, By Mouth, Daily, # 30 tablet, Refills 1, Tot. Refills 0, Maintenance, 04/08/21 18:40:00 EDT, Route to Pharmacy Electronically, [id number], 158, cm, 04/07/21 10:47:00 EDT, Height, 72.2, kg, 03/29/21 22:13:00 EDT, Dry Weight Start Date: 04/08/21 Status: Ordered MiraLax oral powder for reconstitution = 17 Gm, By Mouth, Daily, dissolve in water before taking, # 255 Gm, 0 Refills, Maintenance, 12/20/20 16:30:00 EST, REC Powder, [facility], Partial fill upon patient request [...]
--- OUTSIDE RECORDS SUMMARY | 2023-09-12 20:51 | XMS_ITS | Continuity of Care Document ---
Author Name Unknown Organization [facility] Address [address] [place] [address]- Care Team Providers Care Motorboat Mechanic Inboard/Outboard Name Role Phone Not on Staff, PCP Primary Care Physician Unavail able Encounter [facility] [place] Date(s): 10/28/20 - 11/27/20 [facility] [address] [address]- Allergies, Adverse Reactions, Alerts Substance Reaction Severity Status codeine Active amoxicillin Active Dilaudid Hives C/O: a swelling Active Vicodin Active Immunizations Given and Recorded Vaccine Date Status Refusal Reason tetanus/diphtheria/pertussis, acel(Tdap) 04/03/12 Given Medications Multivitamin Tablet 1, tablet, By Mouth, Daily, Refills 0, 02/21/09 5:08:25 Start Date: 02/21/09 Stop Date: 03/22/09 Status: Ordered Problem List Condition Effective Dates [...] and depression(Confirmed) 6 Active H/O Placental abruption(Confirmed) 2009 Active H/O Suicide ideation(Confirmed) 7 2008 Active 1Pt reports during telehealth OBI visit that she has hx of hypothyroidsm and is currently unmanaged at this time. 2Pt reports during telehealth OBI visit that she is not currently engaged with mental health services nor does she want to at this time - [facility] services declined. 3per pt's own history during telehealth OBI visit. 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 5Pt reports during telehealth OBI visit that she is not currently engaged with mental health services nor does she want to at this time - [facility] services declined. 6Pt reports during telehealth OBI visit that she is not currently engaged with mental health services nor does she want to at this time - [facility] services declined. 7CIS note in 2009 - cut wrists Social History Social History Type Response Tobacco Use: 4 or less cigar ettes(less than 1/4 pack)/day in last 30 days. Sex
--- OUTSIDE RECORDS SUMMARY | 2023-09-12 20:51 | XMS_ITS | Continuity of Care Document ---
Author Name Unknown Organization [facility] Address [address] [place] [address]- Care Team Providers Care Director Software Development Name Role Phone Milind Morales MD Primary Care Physician [phone] Encounter [facility] Date(s): 02/13/21 - 02/20/21 [facility] [address] [place] [address]- Attending Physician: Eddie Thompson MD Referring Physician: Milind Morales MD Allergies, Adverse Reactions, Alerts Substance Reaction [...] 3 Refills, Maintenance, 02/06/21 9:12:00 EDT, Capsule, [facility]/pharmacy #[id number], Partial fill upon patient request if the prescription is for a schedule II opioid drFara. Start Date: 02/06/21 Status: Ordered ferrous sulfate 325 mg oral enteric coated tablet 325 mg, 1, tablet, By Mouth, Daily, # 90 tablet, Refills 2, Tot. Refills 2, Maintenance, 02/06/21 9:12:00 EDT, Route to Pharmacy Electronically, [id number], Partial fill upon patient request if the prescription is for a schedule II opioid drug... Start Date: 02/06/21 Status: Ordered glycerin adult rectal suppository 1 supp, Rectally, Daily, PRN for constipation, # 10 supp, 0 Refills, Acute 02/21/21 12:12:00 EDT, 02/10/21 20:42:00 EDT, Suppository, [facility]/pharmacy #[id number], Partial fill upon patient request if the prescription is for a schedule II opioid drug., tamra Alvarez,... Start Date: 02/10/21 Stop Date: 02/21/21 Status: Ordered HYDROXYprogesterone 250 mg/mL intramuscular solution 1 mL = 250 mg, Intramuscular, Every week, # 4 each, 5 Refills, Soft Stop, 12/20/20 11:48:00 EST, Solution, [facility], Partial fill upon patient request if the prescription is for a schedule II opioid drug., tamra Alvarez, 12/20/20 8:04:00... Start Date: 12/20/20 Stop Date: 04/09/23 Status: Ordered levothyroxine 50 mcg (0.05 mg) oral capsule 1 capsule = 50 mcg, By Mouth, Daily, # 90 capsule, 1 Refills, Maintenance, 02/16/21 12:45:00 EDT, Capsule, [facility]/pharmacy #[id number], Partial fill upon patient request if the prescription is for a schedule II opioid drug., tamra Alvarez, 02/14/21 9:09:00 EDT, Heig... Start Date: 02/16/21 Status: Ordered MiraLax oral powder for reconstitution = 17 Gm, By Mouth, Daily, dissolve in water before taking, # 255 Gm, 0 Refills, Maintenance, 12/20/20 16:30:00 EST, REC Powder, [facility], Partial fill upon patient request if the prescription is for a schedule II opioid drug., 17... Start Date: 12/20/20 Status: Ordered Multivitamins with Folic Acid 0.8 mg oral capsule 1 capsule, By Mouth, Daily, # 90 capsule, 3 Refills, Maintenance, 02/06/21 9:12:00 EDT, Capsule, [id number], Please sub for any vit covered by insurance if needed, 1 capsule By MouthDaAntonio galarza cm, 01/16/21 16:22:00 EDT, Height, 66.1... Start Date: 02/06/21 Status: Ordered Problem List Condition Effective Dates Status Health Status Inform ant Abnormal Pap smear - ASCUS(Confirmed) 9/24/20 Active H/O Anemia(Confirmed) Active Asthma(Confirmed) Active Constipation(Confirmed) [...] at this time - [facility] services declined. 3per pt's own history during telehealth OBI visit. 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 5Pt reports during telehealth OBI visit that she is not currently engaged with mental health services nor does she want to at this time - [facility] services declined. 6Pt reports during telehealth OBI visit that she is not currently engaged with mental health services nor does she want to at this time - [facility] services declined. 7CIS note in 2009 - cut wrists Vital Signs Most recent to oldest [Reference Range]: 1 Weight 70.5 kg (02/13/21 12:38 PM) Dry Weight 70.5 kg (02/13/21 12:38 PM) Weight Obtained Via Standing scale (02/13/21 12:38 PM) Dry Weight Obtained Via Standing scale (02/13/21 12:38 PM) Social History Social History Type Response Smoking Status 10 or more cigarette s (1/2 pack or more)/day in last 30 days entered on: 02/13/21 Sex
--- OUTSIDE RECORDS SUMMARY | 2023-09-12 20:51 | XMS_ITS | Continuity of Care Document ---
Author Name Unknown Organization [facility] Address [address] [place] [address]- Care Team Providers Care Reject Opener And Filler Name Role Phone Milind Morales MD Primary Care Physician [phone] [place] [facility] [place] [id number] Date(s): 04/11/21 - 05/11/[address] [address] Attending Physician: Marie Flores Admitting Physician: AdmtrMarie Referring Physician: AdmtrMarie Allergies, Adverse Reactions, Alerts Substance Reaction Severity [...] Refills, Maintenance, 02/06/21 9:12:00 EDT, [facility]aps[facility], [id number], Partial fill upon patient request if the prescription is for a schedule II opioid . Start Date: 02/06/21 Status: Ordered ferrous sulfate 325 mg oral enteric coated tablet 325 mg, 1, tablet, By Mouth, Daily, # 90 tablet, Refills 2, Tot. Refills 2, Maintenance, 02/06/21 9:12:00 EDT, Route to Pharmacy Electronically, [facility]/pharmacy #[id number], Partial fill upon patient request if the [...] Refills, Soft Stop, 12/20/20 11:48:00 EST, Solution, [facility], Partial fill upon patient request if the prescription is for a schedule II opioid drug., 158tamra, 12/20/20 8:04:00... Start Date: 12/20/20 Stop Date: 04/09/23 Status: Ordered levothyroxine 0.05 mg oral tablet 1 tablet = 50 mcg, By Mouth, Daily, # 90 tablet, 1 Refills, Maintenance, 02/24/21 12:06:00 EDT, Tablet, [facility], Partial fill upon patient request if the prescription is for a schedule II opioid drug., 158tamra, 02/24/21 10:58:00... Start Date: 02/24/21 Status: Ordered levothyroxine 50 mcg (0.05 mg) oral capsule 1 capsule = 50 mcg, By Mouth, Daily, # 90 capsule, 1 Refills, Maintenance, 02/16/21 12:45:00 EDT, Capsule, [facility]/pharmacy #[id number], Partial fill upon patient request if the prescription is for a schedule II opioid drug., 158tamra, 02/14/21 9:09:00 EDT, Heig... Start Date: 02/16/21 Status: Ordered loratadine 10 mg oral tablet 1, tablet, By Mouth, Daily, # 30 tablet, Refills 1, Tot. Refills 0, Maintenance, 04/08/21 18:40:00 EDT, Route to Pharmacy Electronically, [id number], Antonio tamra, 04/07/21 10:47:00 EDT, Height, 72.2, kg, 03/29/21 22:13:00 EDT, Dry Weight Start Date: 04/08/21 Status: Ordered MiraLax oral powder for reconstitution = 17 Gm, By Mouth, Daily, dissolve in water before taking, # 255 Gm, 0 Refills, Maintenance, 12/20/20 16:30:00 EST, REC Powder, [facility], Partial fill upon patient request if the prescription is for a schedule II opioid drug., 17... Start Date: 12/20/20 Status: Ordered Multivitamins with Folic Acid 0.8 mg oral capsule 1 capsule, By Mouth, Daily, # 90 capsule, 3 Refills, Maintenance, 02/06/21 9:12:00 EDT, Capsule, [id number], Please sub for any vit covered by [...] she want to at this time - [facility] services declined. 9Problem added by Discern Expert Social History Social History Type Response Smoking Status 10 or more cigarette s (1/2 pack or more)/day in last 30 days entered on: 02/13/21 Sex
--- OUTSIDE RECORDS SUMMARY | 2023-09-12 20:51 | XMS_ITS | Continuity of Care Document ---
Author Name Unknown Organization [facility] ter Address [address] [place] [id number]- Care Team Providers Care Sock Knitter Name Role Phone Milind Morales MD Primary Care Physician [phone] Encounter [facility] [place] Date(s): 05/07/21 - 06/12/[address] [id number] Attending Physician: Quita Chew DO Admitting Physician: Quita Chew DO Referring Physician: Lacy Juares DO Allergies, Adverse [...] give 325mg per patient preference and re-dose [id number] within 4 hours, if needed. Patient should [...] 3 Refills, Maintenance, 02/06/21 9:12:00 EDT, Capsule, [facility]/pharmacy #[id number], Partial fill upon patient request if the prescription is for a schedule II opioid dr... Start Date: 02/06/21 Status: Ordered Dulcolax 10 mg rectal suppository 1 supp = 10 mg, Rectally, Daily, PRN as needed for constipation, # 10 supp, 0 Refills, Maintenance,05/14/21 0:20:00 EDT, Suppository, [facility], Partial fill upon patient request if the prescription is for a schedule II opioid dr... Start Date: 05/14/21 Status: Ordered ferrous sulfate 325 mg oral enteric coated tablet 325 mg, 1, tablet, By Mouth, Daily, # 90 tablet, Refills 2, Tot. Refills 2, Maintenance, 02/06/21 9:12:00 EDT, [id number], Partial fill upon patient request if the prescription is for a schedule II opioid drug... Start Date: 02/06/21 Status: Ordered ibuprofen 800 mg oral tablet 800 mg, 1, tablet, By Mouth, Every 8 hours, # 30 tablet, Refills 0, Tot. Refills 0, Maintenance, 05/12/21 6:38:00 EDT, Route to Pharmacy Electronically, [facility], Partial fill upon patient request [...] 1 Refills, Maintenance, 02/24/21 12:06:00 EDT, Tablet, [facility], Partial fill upon patient request if the prescription is for a schedule II opioid drug., 158, cm, 02/24/21 10:58:00... Start Date: 02/24/21 Status: Ordered lidocaine 1.8% topical film 1 patch, Topically, Daily, leave on up to 12 hours, # 8 each, 0 Refills, Maintenance, 05/14/21 0:25:00 EDT, Film, [facility], Partial fill upon patient request if the prescriptionis for a schedule II opioid drug., 1 patch Topicall... Start Date: 05/14/21 Status: Ordered MiraLax oral powder for reconstitution = 17 Gm, By Mouth, Daily, dissolve in water before taking, # 255 Gm, 0 Refills, Maintenance, 05/12/21 6:39:00 EDT, REC Powder, [facility], Partial fill upon patient request if theprescription is for a schedule II opioid drug., 17... Start Date: 05/12/21 Status: Ordered MiraLax oral powder for reconstitution = 17 Gm, By Mouth, Daily, dissolve in water before taking, # 255 Gm, 0 Refills, Maintenance, 12/20/20 16:30:00 EST, REC Powder, [facility], Partial fill upon patient request if the prescription is for a schedule II opioid drug., 17... Start Date: 12/20/20 Status: Ordered oxyCODONE 5 mg oral tablet 5 mg, 1, tablet, By Mouth, Every 6 hours, PRN, # 15 tablet, Refills 0, Tot. Refills 0, Maintenance,as needed for pain, 05/12/21 6:39:00 EDT, Route to Pharmacy Electronically, [facility], Partial fill upon patient request if the pr... Start Date: 05/12/21 Status: Ordered Multivitamins with Folic Acid 0.8 mg oral capsule 1 capsule, By Mouth, Daily, # 90 capsule, 3 Refills, Maintenance, 02/06/21 9:12:00 EDT, Capsule, [id number], Please sub for any vit covered by insurance if needed, 1 capsule By MouthDaily, 158, cm, 01/16/21 16:22:00 EDT, Height, 66.1... Start Date: 02/06/21 Status: Ordered senna - oral tablet 2 tablet, By Mouth, Daily at bedtime, PRN for constipation, # 60 tablet, 0 Refills, Maintenance, 05/12/21 6:39:00 EDT, Tablet, [facility], Partial fill upon patient request if theprescription is for a schedule II opioid drug., 158... Start Date: 05/12/21 Status: Ordered simethicone 80 mg oral tablet 1 tablet = 80 mg, Chew, 3 times a day after meals, PRN as needed for gas, # 60 tablet, 0 Refills, Maintenance, 05/12/21 6:39:00 EDT, Tablet, [facility], Partial fill upon patient request [...] 05/12/21 6:38:00 EDT, Route to Pharmacy Electronically, [facility],Partial fill upon patient request if [...]
--- OUTSIDE RECORDS SUMMARY | 2023-09-12 20:51 | XMS_ITS | Continuity of Care Document ---
Author Name Unknown Organization [facility] Address [address] [place] [id number]- Care Team Providers Care Utility Bagger Name Role Phone Andrew STONE, Milind Primary Care Physician Encounter [facility] [place] Date(s): 04/25/21 - 06/19/[address] [address]- Attending Physician: Not on Staff, Attending MD Allergies, Adverse Reactions, Alerts Substance Reaction Severity Status codeine Active amoxicillin Active Dilaudid Hives C/O: a swelling Active Adhesive Bandage Active Vicodin Active Immunizations Given and Recorded [...] give 325mg per patient preference and re-dose [id number] within 4 hours, if needed. Patient should [...] 3 Refills, Maintenance, 02/06/21 9:12:00 EDT, Capsule, [facility]/pharmacy #[id number], Partial fill upon patient request if the prescription is for a schedule II opioid dr... Start Date: 02/06/21 Status: Ordered Dulcolax 10 mg rectal suppository 1 supp = 10 mg, Rectally, Daily, PRN as needed for constipation, # 10 supp, 0 Refills, Maintenance,05/14/21 0:20:00 EDT, Suppository, [facility], Partial fill upon patient request if the prescription is for a schedule II opioid dr... Start Date: 05/14/21 Status: Ordered ferrous sulfate 325 mg oral enteric coated tablet 325 mg, 1, tablet, By Mouth, Daily, # 90 tablet, Refills 2, Tot. Refills 2, Maintenance, 02/06/21 9:12:00 EDT, Route to Pharmacy Electronically, [facility]/pharmacy #[id number], Partial fill upon patient request if the prescription is for a schedule II opioid drug... Start Date: 02/06/21 Status: Ordered ibuprofen 800 mg oral tablet 800 mg, 1, tablet, By Mouth, Every 8 hours, # 30 tablet, Refills 0, Tot. Refills 0, Maintenance, 05/12/21 6:38:00 EDT, Route to Pharmacy Electronically, [facility], Partial fill upon patient request [...] 1 Refills, Maintenance, 02/24/21 12:06:00 EDT, Tablet, [facility], Partial fill upon patient request if the prescription is for a schedule II opioid drug., 158, cm, 02/24/21 10:58:00... Start Date: 02/24/21 Status: Ordered lidocaine 1.8% topical film 1 patch, Topically, Daily, leave on up to 12 hours, # 8 each, 0 Refills, Maintenance, 05/14/21 0:25:00 EDT, Film, [facility], Partial fill upon patient request if the prescriptionis for a schedule II opioid drug., 1 patch Topicall... Start Date: 05/14/21 Status: Ordered MiraLax oral powder for reconstitution = 17 Gm, By Mouth, Daily, dissolve in water before taking, # 255 Gm, 0 Refills, Maintenance, 05/12/21 6:39:00 EDT, REC Powder, [facility], Partial fill upon patient request if theprescription is for a schedule II opioid drug., 17... Start Date: 05/12/21 Status: Ordered MiraLax oral powder for reconstitution = 17 Gm, By Mouth, Daily, dissolve in water before taking, # 255 Gm, 0 Refills, Maintenance, 12/20/20 16:30:00 EST, REC Powder, [facility], Partial fill upon patient request if the prescription is for a schedule II opioid drug., 17... Start Date: 12/20/20 Status: Ordered oxyCODONE 5 mg oral tablet 5 mg, 1, tablet, By Mouth, Every 6 hours, PRN, # 15 tablet, Refills 0, Tot. Refills 0, Maintenance,as needed for pain, 05/12/21 6:39:00 EDT, Route to Pharmacy Electronically, [facility], Partial fill upon patient request if the pr... Start Date: 05/12/21 Status: Ordered Multivitamins with Folic Acid 0.8 mg oral capsule 1 capsule, By Mouth, Daily, # 90 capsule, 3 Refills, Maintenance, 02/06/21 9:12:00 EDT, Capsule, [id number], Please sub for any vit covered by insurance if needed, 1 capsule By MouthDaily, 158, cm, 01/16/21 16:22:00 EDT, Height, 66.1... Start Date: 02/06/21 Status: Ordered senna - oral tablet 2 tablet, By Mouth, Daily at bedtime, PRN for constipation, # 60 tablet, 0 Refills, Maintenance, 05/12/21 6:39:00 EDT, Tablet, [facility], Partial fill upon patient request if theprescription is for a schedule II opioid drug., 158... Start Date: 05/12/21 Status: Ordered simethicone 80 mg oral tablet 1 tablet = 80 mg, Chew, 3 times a day after meals, PRN as needed for gas, # 60 tablet, 0 Refills, Maintenance, 05/12/21 6:39:00 EDT, Tablet, [facility], Partial fill upon patient request [...] 05/12/21 6:38:00 EDT, Route to Pharmacy Electronically, [facility],Partial fill upon patient request if the [...]
--- OUTSIDE RECORDS SUMMARY | 2023-09-12 20:51 | XMS_ITS | Continuity of Care Document ---
Author Name Unknown Organization [facility] Address [address] [place] [id number]- Care Team Providers Care Avionic Technician Name Role Phone Andrew STONE, Milind Primary Care Physician [phone] [place] [facility] [place] 12/29/21 - 01/28/[address] [address]- Allergies, Adverse Reactions, Alerts Substance Reaction Severity [...] give 325mg per patient preference and re-dose [id number] within 4 hours, if needed. Patient should [...] 3 Refills, Maintenance, 02/06/21 9:12:00 EDT, Capsule, [facility]/pharmacy #[id number], Partial fill upon patient request if the prescription is for a schedule II opioid dr... Start Date: 02/06/21 Status: Ordered Dulcolax 10 mg rectal suppository 1 supp = 10 mg, Rectally, Daily, PRN as needed for constipation, # 10 supp, 0 Refills, Maintenance,05/14/21 0:20:00 EDT, Suppository, [facility], Partial fill upon patient request if the prescription is for a schedule II opioid dr... Start Date: 05/14/21 Status: Ordered ferrous sulfate 325 mg oral enteric coated tablet 325 mg, 1, tablet, By Mouth, Daily, # 90 tablet, Refills 2, Tot. Refills 2, Maintenance, 02/06/21 9:12:00 EDT, Route to Pharmacy Electronically, [facility]/pharmacy #[id number], Partial fill upon patient request if the prescription is for a schedule II opioid drug... Start Date: 02/06/21 Status: Ordered ibuprofen 800 mg oral tablet 800 mg, 1, tablet, By Mouth, Every 8 hours, # 30 tablet, Refills 0, Tot. Refills 0, Maintenance, 05/12/21 6:38:00 EDT, Route to Pharmacy Electronically, [facility], Partial fill upon patient request [...] 1 Refills, Maintenance, 02/24/21 12:06:00 EDT, Tablet, [facility], Partial fill upon patient request if the prescription is for a schedule II opioid drug., 158, cm, 02/24/21 10:58:00... Start Date: 02/24/21 Status: Ordered lidocaine 1.8% topical film 1 patch, Topically, Daily, leave on up to 12 hours, # 8 each, 0 Refills, Maintenance, 05/14/21 0:25:00 EDT, Film, [facility], Partial fill upon patient request if the prescriptionis for a schedule II opioid drug., 1 patch Topicall... Start Date: 05/14/21 Status: Ordered MiraLax oral powder for reconstitution = 17 Gm, By Mouth, Daily, dissolve in water before taking, # 255 Gm, 0 Refills, Maintenance, 05/12/21 6:39:00 EDT, REC Powder, [facility], Partial fill upon patient request if theprescription is for a schedule II opioid drug., 17... Start Date: 05/12/21 Status: Ordered MiraLax oral powder for reconstitution = 17 Gm, By Mouth, Daily, dissolve in water before taking, # 255 Gm, 0 Refills, Maintenance, 12/20/20 16:30:00 EST, REC Powder, [facility], Partial fill upon patient request if the prescription is for a schedule II opioid drug., 17... Start Date: 12/20/20 Status: Ordered oxyCODONE 5 mg oral tablet 5 mg, 1, tablet, By Mouth, Every 6 hours, PRN, # 15 tablet, Refills 0, Tot. Refills 0, Maintenance,as needed for pain, 05/12/21 6:39:00 EDT, Route to Pharmacy Electronically, [facility], Partial fill upon patient request [...] 0 Refills, Maintenance, 05/12/21 6:39:00 EDT, Tablet, [facility], Partial fill upon patient request if theprescription is for a schedule II opioid drug., 158... Start Date: 05/12/21 Status: Ordered simethicone 80 mg oral tablet 1 tablet = 80 mg, Chew, 3 times a day after meals, PRN as needed for gas, # 60 tablet, 0 Refills, Maintenance, 05/12/21 6:39:00 EDT, Tablet, [facility], Partial fill upon patient request [...] 05/12/21 6:38:00 EDT, Route to Pharmacy Electronically, [facility],Partial fill upon patient request if [...] - N services declined. 9Problem added by Sushil Expert Social History Social History Type Response Smoking Status 10 or more cigarette s (1/2 pack or more)/day in last 30 days entered on: 02/13/21 Sex
--- OUTSIDE RECORDS SUMMARY | 2023-09-12 20:51 | XMS_ITS | Continuity of Care Document ---
Author Name Unknown Organization [facility] Address [address] [facility] [address] [place] [address]- Care Team Providers Care Pharmacy Ancillary Name Role Phone Milind Morales MD Primary Care Physician Encounter [facility] Date(s): 02/13/21 - 03/15/21 [facility] [address] [facility] [address] [place] [address]- Attending Physician: Marie Flores Admitting Physician: AdmtrMarie Referring Physician: Admtr, Ar8 Allergies, Adverse Reactions, Alerts Substance Reaction Severity Status codeine Active amoxicillin Active Vicodin Active Dilaudid Hives C/O: a swelling Active Immunizations Given and Recorded Vaccine Date [...] Refills, Maintenance, 02/06/21 9:12:00 EDT, Capsule, [id number], Partial fill upon patient request if the prescription is for a schedule II opioid . Start Date: 02/06/21 Status: Ordered ferrous sulfate 325 mg oral enteric coated tablet 325 mg, 1, tablet, By Mouth, Daily, # 90 tablet, Refills 2, Tot. Refills 2, Maintenance, 02/06/21 9:12:00 EDT, Route to Pharmacy Electronically, [facility]/pharmacy #[id number], Partial fill upon patient request if the prescription is for a schedule II opioid drug... Start Date: 02/06/21 Status: Ordered HYDROXYprogesterone 250 mg/mL intramuscular solution 1 mL = 250 mg, Intramuscular, Every week, # 4 each, 5 Refills, Soft Stop, 12/20/20 11:48:00 EST, Solution, [facility], Partial fill upon patient request if the prescription is for a schedule II opioid drug., [id number], 12/20/20 8:04:00... Start Date: 12/20/20 Stop Date: 04/09/23 Status: Ordered levothyroxine 0.05 mg oral tablet 1 tablet = 50 mcg, By Mouth, Daily, # 90 tablet, 1 Refills, Maintenance, 02/24/21 12:06:00 EDT, Tablet, [facility], Partial fill upon patient request if the prescription is for a schedule II opioid drug., [id number], 02/24/21 10:58:00... Start Date: 02/24/21 Status: Ordered levothyroxine 50 mcg (0.05 mg) oral capsule 1 capsule = 50 mcg, By Mouth, Daily, # 90 capsule, 1 Refills, Maintenance, 02/16/21 12:45:00 EDT, Capsule, [facility]/pharmacy #[id number], Partial fill upon patient request if the prescription is for a schedule II opioid drug., tamra Alvarez, 02/14/21 9:09:00 EDT, [place]... Start Date: 02/16/21 Status: Ordered loratadine 10 mg oral tablet 1, tablet, By Mouth, Daily, # 30 tablet, Refills 1, Tot. Refills 0, Maintenance, 03/10/21 6:57:00 EDT, Route to Pharmacy Electronically, [facility]ORE [id number], tamra Alvarez, 03/03/21 11:11:00 EDT, Height, 70.5,kg, 02/13/21 12:38:00 EDT, Dry Weight Start Date: 03/10/21 Status: Ordered MiraLax oral powder for reconstitution = 17 Gm, By Mouth, Daily, dissolve in water before taking, # 255 Gm, 0 Refills, Maintenance, 12/20/20 16:30:00 EST, REC Powder, [facility], Partial fill upon patient request if [...] she want to at this time - [facility] services declined. 3Problem added by Discern Expert 4Pt reports during telehealth OBI visit that she is not currently engaged with mental health services nor does she want to at this time - [facility] services declined. 5per pt's own history during [...] she want to at this time - [facility] services declined. 9Problem added by Discern Expert Social History Social History Type Response Smoking Status 10 or more cigarette s (1/2 pack or more)/day in last 30 days entered on: 02/13/21 Sex
--- OUTSIDE RECORDS SUMMARY | 2023-09-12 20:51 | XMS_ITS | Continuity of Care Document ---
Author Name Unknown Organization [facility] Address [address] [place] [id number]- Care Team Providers Care Ornamental Metalwork Designer Name Role Phone Not on Staff, PCP Primary Care Physician Unavail able Encounter [facility] Date(s): 01/06/21 - 02/05/[address] [facility] [address] [place] [id number] Allergies, Adverse Reactions, Alerts Substance Reaction Severity Status codeine Active amoxicillin Active Dilaudid Hives C/O: a swelling Active Vicodin Active Immunizations Given and Recorded Vaccine Date Status Refusal Reason tetanus/diphtheria/pertussis, acel(Tdap) 04/03/12 Given Medications docusate sodium 100 mg oral capsule 1 capsule = 100 mg, By Mouth, 2 times a day, PRN as needed for constipation, # 20 capsule, 1 Refills, Maintenance, 01/07/21 10:30:00 EDT, Capsule, [facility]/pharmacy #[id number], Partial fill upon patient request if the prescription is for a schedule II opioid dr... Start Date: 01/07/21 Status: Ordered docusate sodium 100 mg oral capsule 1 capsule = 100 mg, By Mouth, 2 times a day, PRN as needed for constipation, # 20 capsule, 0 Refills, Maintenance, 12/20/20 16:31:00 EST, Capsule, [facility], Partial fill upon patient request if the prescription is for a schedule... Start Date: 12/20/20 Status: Ordered ferrous sulfate 325 mg oral enteric coated tablet 325 mg, 1, tablet, By Mouth, Daily, # 90 tablet, Refills 0, Tot. Refills 0, Maintenance, 12/25/20 10:13:00 EST, Route to Pharmacy Electronically, [facility]/pharmacy #[id number], Partial fill upon patient requestif the prescription is for a schedule II opioid drake... Start Date: 12/25/20 Status: Ordered HYDROXYprogesterone 250 mg/mL intramuscular solution 1 mL = 250 mg, Intramuscular, Every week, # 4 each, 5 Refills, Soft Stop, 12/20/20 11:48:00 EST, Solution, [facility], Partial fill upon patient request if the prescription is for a schedule II opioid drug., 158, cm, 12/20/20 8:04:00... Start Date: 12/20/20 Stop Date: 04/09/23 Status: Ordered levothyroxine 50 mcg (0.05 mg) oral capsule 1 capsule = 50 mcg, By Mouth, Daily, # 30 capsule, 1 Refills, Maintenance, 01/22/21 21:26:00 EDT, Capsule, [facility]/pharmacy #[id number], Partial fill upon patient request if the prescription is for a schedule II opioid drug., 158, cm, 01/16/21 16:22:00 EDT, Hei... Start Date: 01/22/21 Status: Ordered metronidazole topical 0.75% gel with applicator 1 application, Vaginally, Daily at bedtime, # 70 Gm, 0 Refills, Soft Stop, 12/20/20 16:29:00 EST, Gel, [facility], Partial fill upon patient request if the prescription is for a schedule II opioid drug., 1 application Vaginally Vijaya... Start Date: 12/20/20 Stop Date: 12/27/20 Status: Ordered MiraLax oral powder for reconstitution = 17 Gm, By Mouth, Daily, dissolve in water before taking, # 255 Gm, 0 Refills, Maintenance, 12/22/20 16:29:00 EST, REC Powder, [facility]/pharmacy #[id number], Partial fill upon patient request if the prescription is for a schedule II opioid drug., 17 Gm By Mouth... Start Date: 12/22/20 Status: Ordered MiraLax oral powder for reconstitution = 17 Gm, By Mouth, Daily, dissolve in water before taking, # 255 Gm, 0 Refills, Maintenance, 12/20/20 16:30:00 EST, REC Powder, [facility], Partial fill upon patient request if the prescription is for a schedule II opioid drug., 17... Start Date: 12/20/20 Status: Ordered Multivitamin Tablet 1, tablet, By Mouth, Daily, Refills 0, 02/21/09 5:08:25 Start Date: 02/21/09 Stop Date: 03/22/09 Status: Ordered Multivitamins with Folic Acid 0.8 mg oral capsule 1 capsule, By Mouth, Daily, # 90 capsule, 3 Refills, Maintenance, 01/17/21 12:58:00 EDT, Capsule, [id number], Please sub for any vit covered by insurance if needed, 1 capsule By Mouth Daily, 158, cm, 01/16/21 16:22:00 EDT, Height, 66.... Start Date: 01/17/21 Status: Ordered Vitamin C 500 mg oral tablet 1 tablet = 500 mg, By Mouth, Daily, # 90 tablet, 1 Refills, Maintenance, 12/20/20 16:28:00 EST, Tablet, [facility], Partial fill upon patient request if the prescription is for a schedule II opioid drug., 158, cm, 12/20/20 8:04:00... Start Date: 12/20/20 Status: Ordered Problem List Condition Effective Dates [...] she want to at this time - [facility] services declined. 3per pt's own history during telehealth OBI visit. 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 5Pt reports during telehealth OBI visit that she is not currently engaged with mental health services nor does she want to at this time - [facility] services declined. 6Pt reports during telehealth OBI visit that she is not currently engaged with mental health services nor does she want to at this time - [facility] services declined. 7CIS note in 2009 - cut wrists Social History Social History Type Response Tobacco Use: 4 or less cigar ettes(less than 1/4 pack)/day in last 30 days. Sex
--- OUTSIDE RECORDS SUMMARY | 2023-09-12 20:51 | XMS_ITS | Continuity of Care Document ---
Author Name Unknown Organization [facility] Address [address] [place] [phone]- Care Team Providers Care Production Line Mechanic Name Role Phone Not on Staff, PCP Primary Care Physician Unavail able Encounter [facility] [place] Date(s): 01/06/21 - 02/05/[address] [address]- Allergies, Adverse Reactions, Alerts Substance Reaction Severity [...] 1 Refills, Maintenance, 01/07/21 10:30:00 EDT, Capsule, [facility]/pharmacy #[id number], Partial fill upon patient request if the prescription is for a schedule II opioid dr... Start Date: 01/07/21 Status: Ordered docusate sodium 100 mg oral capsule 1 capsule = 100 mg, By Mouth, 2 times a day, PRN as needed for constipation, # 20 capsule, 0 Refills, Maintenance, 12/20/20 16:31:00 EST, Capsule, [facility], Partial fill upon patient request if the prescription is for a schedule... Start Date: 12/20/20 Status: Ordered ferrous sulfate 325 mg oral enteric coated tablet 325 mg, 1, tablet, By Mouth, Daily, # 90 tablet, Refills 0, Tot. Refills 0, Maintenance, 12/25/20 10:13:00 EST, Route to Pharmacy Electronically, [facility]/pharmacy #[id number], Partial fill upon patient requestif the prescription is for a schedule II opioid drake... Start Date: 12/25/20 Status: Ordered HYDROXYprogesterone 250 mg/mL intramuscular solution 1 mL = 250 mg, Intramuscular, Every week, # 4 each, 5 Refills, Soft Stop, 12/20/20 11:48:00 EST, Solution, [facility], Partial fill upon patient request if the prescription is for a schedule II opioid drug., 158, cm, 12/20/20 8:04:00... Start Date: 12/20/20 Stop Date: 04/09/23 Status: Ordered levothyroxine 50 mcg (0.05 mg) oral capsule 1 capsule = 50 mcg, By Mouth, Daily, # 30 capsule, 1 Refills, Maintenance, 01/22/21 21:26:00 EDT, Capsule, [facility]/pharmacy #[id number], Partial fill upon patient request if the prescription is for a schedule II opioid drug., 158, cm, 01/16/21 16:22:00 EDT, Hei... Start Date: 01/22/21 Status: Ordered metronidazole topical 0.75% gel with applicator 1 application, Vaginally, Daily at bedtime, # 70 Gm, 0 Refills, Soft Stop, 12/20/20 16:29:00 EST, Gel, [facility], Partial fill upon patient request if the prescription is for a schedule II opioid drug., 1 application Vaginally Vijaya... Start Date: 12/20/20 Stop Date: 12/27/20 Status: Ordered MiraLax oral powder for reconstitution = 17 Gm, By Mouth, Daily, dissolve in water before taking, # 255 Gm, 0 Refills, Maintenance, 12/22/20 16:29:00 EST, REC Powder, [facility]/pharmacy #[id number], Partial fill upon patient request if the prescription is for a schedule II opioid drug., 17 Gm By Mouth... Start Date: 12/22/20 Status: Ordered MiraLax oral powder for reconstitution = 17 Gm, By Mouth, Daily, dissolve in water before taking, # 255 Gm, 0 Refills, Maintenance, 12/20/20 16:30:00 EST, REC Powder, [facility], Partial fill upon patient request [...] 1 Refills, Maintenance, 12/20/20 16:28:00 EST, Tablet, [facility], Partial fill upon patient request [...] she want to at this time - [facility] services declined. 6Pt reports during telehealth OBI visit that she is not currently engaged with mental health services nor does she want to at this time - [facility] services declined. 7CIS note in 2009 - cut wrists Social History Social History Type Response Tobacco Use: 4 or less cigar ettes(less than 1/4 pack)/day in last 30 days. Sex
--- OUTSIDE RECORDS SUMMARY | 2023-09-12 20:51 | XMS_ITS | Continuity of Care Document ---
Author Name Unknown Organization [facility] Address [address] [place] [id number]- Care Team Providers Care Contract Management Specialist Name Role Phone Andrew STONE, Milind Primary Care Physician Encounter [facility] Date(s): 01/16/21 - 02/15/[address] [address]- Allergies, Adverse Reactions, Alerts Substance Reaction Severity [...] 1 Refills, Maintenance, 01/07/21 10:30:00 EDT, Capsule, [facility]pharmacy #[id number], Partial fill upon patient request if the prescription is for a schedule II opioid Start Date: 01/07/21 Status: Ordered docusate sodium 100 mg oral capsule 1 capsule = 100 mg, By Mouth, 2 times a day, PRN as needed for constipation, # 180 capsule, 3 Refills, Maintenance, 02/06/21 9:12:00 EDT, Capsule, [id number], Partial fill upon patient request if the prescription is for a schedule II opioid Start Date: 02/06/21 Status: Ordered ferrous sulfate 325 mg oral enteric coated tablet 325 mg, 1, tablet, By Mouth, Daily, # 90 tablet, Refills 2, Tot. Refills 2, Maintenance, 02/06/21 9:12:00 EDT, Route to Pharmacy Electronically, [facility]/pharmacy #[id number], Partial fill upon patient request if the prescription is for a schedule II opioid drug... Start Date: 02/06/21 Status: Ordered glycerin adult rectal suppository 1 supp, Rectally, Daily, PRN for constipation, # 10 supp, 0 Refills, Acute 02/21/21 12:12:00 EDT, 02/10/21 20:42:00 EDT, Suppository, [facility]/pharmacy #[id number], Partial fill upon patient request if the prescription is for a schedule II opioid drug., 158, cm,... Start Date: 02/10/21 Stop Date: 02/21/21 Status: Ordered HYDROXYprogesterone 250 mg/mL intramuscular solution 1 mL = 250 mg, Intramuscular, Every week, # 4 each, 5 Refills, Soft Stop, 12/20/20 11:48:00 EST, Solution, [facility], Partial fill upon patient request if the prescription is for a schedule II opioid drug., 158, cm, 12/20/20 8:04:00... Start Date: 12/20/20 Stop Date: 04/09/23 Status: Ordered levothyroxine 50 mcg (0.05 mg) oral capsule 1 capsule = 50 mcg, By Mouth, Daily, # 30 capsule, 1 Refills, Maintenance, 01/22/21 21:26:00 EDT, Capsule, [facility]/pharmacy #[id number], Partial fill upon patient request if the prescription is for a schedule II opioid drug., 158, cm, 01/16/21 16:22:00 EDT, Hei... Start Date: 01/22/21 Status: Ordered loratadine 10 mg oral tablet 10 mg, 1, tablet, By Mouth, Daily, # 30 tablet, Refills 1, Tot. Refills 1, Maintenance, 02/10/21 20:42:00 EDT, Route to Pharmacy Electronically, [facility]/pharmacy #[id number], Partial fill upon patient request if the prescription is for a schedule II opioid drug... Start Date: 02/10/21 Status: Ordered metronidazole topical 0.75% gel with applicator 1 application, Vaginally, Daily at bedtime, # 70 Gm, 0 Refills, Soft Stop, 12/20/20 16:29:00 EST, Gel, [facility], Partial fill upon patient request if the prescription is for a schedule II opioid drug., 1 application Vaginally Vijaya... Start Date: 12/20/20 Stop Date: 12/27/20 Status: Ordered MiraLax oral powder for reconstitution = 17 Gm, By Mouth, Daily, dissolve in water before taking, # 255 Gm, 0 Refills, Maintenance, 12/22/20 16:29:00 EST, REC Powder, [facility]/pharmacy #[id number], Partial fill upon patient request if the prescription is for a schedule II opioid drug., 17 Gm By Mouth... Start Date: 12/22/20 Status: Ordered MiraLax oral powder for reconstitution = 17 Gm, By Mouth, Daily, dissolve in water before taking, # 255 Gm, 0 Refills, Maintenance, 12/20/20 16:30:00 EST, REC Powder, [facility], Partial fill upon patient request if [...] 3 Refills, Maintenance, 02/06/21 9:12:00 EDT, Capsule, [facility]/pharmacy #[id number], Please sub for any vit covered by insurance if needed, 1 capsule By MouthDaily, 158, cm, 01/16/21 16:22:00 EDT, Height, 66.1... Start Date: 02/06/21 Status: Ordered Vitamin C 500 mg oral tablet 1 tablet = 500 mg, By Mouth, Daily, # 90 tablet, 1 Refills, Maintenance, 12/20/20 16:28:00 EST, Tablet, [facility], Partial fill upon patient request if [...]
--- OUTSIDE RECORDS SUMMARY | 2023-09-12 20:51 | XMS_ITS | Continuity of Care Document ---
Author Name Unknown Organization [facility] Address [address] [place] [phone]- Care Team Providers Care Scientific Programmer Analyst Name Role Phone Not on Staff, PCP Primary Care Physician Unavail able Encounter [facility] Date(s): 12/02/20 - 01/01/[facility] [address] [place] [id number] Attending Physician: Marie Flores Admitting Physician: AdmMarie mcrae Referring Physician: AdmtrMarie Allergies, Adverse Reactions, Alerts [...] constipation, # 20 capsule, 0 Refills, Maintenance, 12/22/20 16:29:00 EST, Capsule, [id number], Partial fill upon patient request if the prescription is for a schedule II opioid drAraceli.. Start Date: 12/22/20 Status: Ordered docusate sodium 100 mg oral capsule 1 capsule = 100 mg, By Mouth, 2 times a day, PRN as needed for constipation, # 20 capsule, 0 Refills, Maintenance, 12/20/20 16:31:00 EST, Capsule, [facility], Partial fill upon patient request if the prescription is for a schedule... Start Date: 12/20/20 Status: Ordered ferrous sulfate 325 mg oral enteric coated tablet 325 mg, 1, tablet, By Mouth, Daily, # 90 tablet, Refills 0, Tot. Refills 0, Maintenance, 12/25/20 10:13:00 EST, Route to Pharmacy Electronically, [id number], Partial fill upon patient requestif the prescription is for a schedule II opioid drake... Start Date: 12/25/20 Status: Ordered HYDROXYprogesterone 250 mg/mL intramuscular solution 1 mL = 250 mg, Intramuscular, Every week, # 4 each, 5 Refills, Soft Stop, 12/20/20 11:48:00 EST, Solution, [facility], Partial fill upon patient request if the prescription is for a schedule II opioid drug., 158, cm, 12/20/20 8:04:00... Start Date: 12/20/20 Stop Date: 04/09/23 Status: Ordered metronidazole topical 0.75% gel with applicator 1 application, Vaginally, Daily at bedtime, # 70 Gm, 0 Refills, Soft Stop, 12/20/20 16:29:00 EST, Gel, [facility], Partial fill upon patient request if the prescription is for a schedule II opioid drug., 1 application Vaginally Vijaya... Start Date: 12/20/20 Stop Date: 12/27/20 Status: Ordered MiraLax oral powder for reconstitution = 17 Gm, By Mouth, Daily, dissolve in water before taking, # 255 Gm, 0 Refills, Maintenance, 12/22/20 16:29:00 EST, REC Powder, [facility]/pharmacy #[id number], Partial fill upon patient request if the prescription is for a schedule II opioid drug., 17 Gm By Mouth... Start Date: 12/22/20 Status: Ordered MiraLax oral powder for reconstitution = 17 Gm, By Mouth, Daily, dissolve in water before taking, # 255 Gm, 0 Refills, Maintenance, 12/20/20 16:30:00 EST, REC Powder, [facility], Partial fill upon patient request if the prescription is for a schedule II opioid drug., 17... Start Date: 12/20/20 Status: Ordered Multivitamin Tablet 1, tablet, By Mouth, Daily, Refills 0, 02/21/09 5:08:25 Start Date: 02/21/09 Stop Date: 03/22/09 Status: Ordered Vitamin C 500 mg oral tablet 1 tablet = 500 mg, By Mouth, Daily, # 90 tablet, 1 Refills, Maintenance, 12/20/20 16:28:00 EST, Tablet, [facility], Partial fill upon patient request [...]
--- OUTSIDE RECORDS SUMMARY | 2023-09-12 20:51 | XMS_ITS | Continuity of Care Document ---
Author Name Unknown Organization [facility] Address [address] [place] [phone]- Care Team Providers Care Refractive Surgeon Name Role Phone Andrew STONE, Milind Primary Care Physician Encounter [facility] Date(s): 02/05/21 - 03/07/[address] [address]- Allergies, Adverse Reactions, Alerts Substance Reaction Severity [...] Refills, Maintenance, 02/06/21 9:12:00 EDT, Capsule, [facility]/pharmacy #[id number], Partial fill upon patient request if the prescription is for a schedule II opioid dr... Start Date: 02/06/21 Status: Ordered ferrous sulfate 325 mg oral enteric coated tablet 325 mg, 1, tablet, By Mouth, Daily, # 90 tablet, Refills 2, Tot. Refills 2, Maintenance, 02/06/21 9:12:00 EDT, Route to Pharmacy Electronically, [facility]/pharmacy #[id number], Partial fill upon patient request if the prescription is for a schedule II opioid drug... Start Date: 02/06/21 Status: Ordered HYDROXYprogesterone 250 mg/mL intramuscular solution 1 mL = 250 mg, Intramuscular, Every week, # 4 each, 5 Refills, Soft Stop, 12/20/20 11:48:00 EST, Solution, [facility], Partial fill upon patient request if the prescription is for a schedule II opioid drug., tamra Alvarez, 12/20/20 8:04:00... Start Date: 12/20/20 Stop Date: 04/09/23 Status: Ordered levothyroxine 0.05 mg oral tablet 1 tablet = 50 mcg, By Mouth, Daily, # 90 tablet, 1 Refills, Maintenance, 02/24/21 12:06:00 EDT, Tablet, [facility], Partial fill upon patient request if the prescription is for a schedule II opioid drug., tamra Alvarez, 02/24/21 10:58:00... Start Date: 02/24/21 Status: Ordered levothyroxine 50 mcg (0.05 mg) oral capsule 1 capsule = 50 mcg, By Mouth, Daily, # 90 capsule, 1 Refills, Maintenance, 02/16/21 12:45:00 EDT, Capsule, [facility]/pharmacy #[id number], Partial fill upon patient request if the prescription is for a schedule II opioid drug., tamra Alvarez, 02/14/21 9:09:00 EDT, Heig... Start Date: 02/16/21 Status: Ordered MiraLax oral powder for reconstitution = 17 Gm, By Mouth, Daily, dissolve in water before taking, # 255 Gm, 0 Refills, Maintenance, 12/20/20 16:30:00 EST, REC Powder, [facility], Partial fill upon patient request if [...] smear of cervix(Confirmed) Active H/O Anemia(Confirmed) Active Asthma(Confirmed) Active Bipolar disease, chronic(Confirmed) 1 Active Bipolar disease in (Confirmed) Active ASCUS with positive high ris k human papilloma virus (HPV)(Confirmed) 07/18/20 Active Constipation(Confirmed) Active gastroschisis in pregn william, antepartum(Confirmed) Active H/O: hypothyroidism(Confirmed) Active H/O premature delivery(Confirmed) Active History of delivery, currently (Confirmed) Active H/O (PTSD)(Confirmed) 2 Active H/O seizures(Confirmed) 3 Active History of ITP(Confirmed) Active Hypothyroidism, adult(Confirmed) 4 Active Immune thrombocytopenia(Confirmed) 5 Active Tobacco use in (Confirmed) Active Anxiety and depression(Confirmed) 6 Active H/O Placental abruption(Confirmed) 2008 Active (Confirmed) Active Social problem(Confirmed) Active 1Pt reports during telehealth OBI visit that she is not currently engaged with mental health services nor does she want to at this time - [facility] services declined. 2Pt reports during telehealth OBI visit that [...] and is currently unmanaged at this time. 6Pt reports during telehealth OBI visit that she is not currently engaged with mental health services nor does she want to at this time - [facility] services declined. Social History Social History Type Response Smoking Status 10 or more cigarette s (1/2 pack or more)/day in last 30 days entered on: 02/13/21 Sex
--- OUTSIDE RECORDS SUMMARY | 2023-09-12 20:51 | XMS_ITS | Continuity of Care Document ---
Author Name Unknown Organization [facility] Address [address] [place] [id number]- Care Team Providers Care Rope Making Machine Operator Name Role Phone Andrew STONE, Milind Primary Care Physician [phone] Encounter [facility] ACCT R [id number] Date(s): 07/03/23 - 07/03/[address] [address]- Discharge Disposition: A-D/C Walkout Attending Physician: Not on Staff, Attending MD Admitting Physician: Not on Staff, Admitting MD Referring Physician: Not on Staff, Referring MD Allergies, Adverse Reactions, Alerts Substance Reaction Severity Status codeine Active amoxicillin Active Adhesive Bandage Active Vicodin Active Dilaudid Hives C/O: a [...] give 325mg per patient preference and re-dose [id number] within 4 hours, if needed. Patient should [...] supp, 0 Refills, Maintenance,05/14/21 0:20:00 EDT, Suppository, [facility], Partial fill upon patient request if the prescription is for a schedule II opioid dr... Start Date: 05/14/21 Status: Ordered ferrous sulfate 325 mg oral enteric coated tablet 325 mg, 1, tablet, By Mouth, Daily, # 90 tablet, Refills 2, Tot. Refills 2, Maintenance, 02/06/21 9:12:00 EDT, Route to Pharmacy Electronically, [facility]/pharmacy #[id number], Partial fill upon patient request if the prescription is for a schedule II opioid drug... Start Date: 02/06/21 Status: Ordered ibuprofen 800 mg oral tablet 800 mg, 1, tablet, By Mouth, Every 8 hours, # 30 tablet, Refills 0, Tot. Refills 0, Maintenance, 05/12/21 6:38:00 EDT, Route to Pharmacy Electronically, [facility], Partial fill upon patient request [...] Refills, Maintenance, 02/24/21 12:06:00 EDT, Tablet, [facility], Partial fill upon patient request if the prescription is for a schedule II opioid drug., 158, cm, 02/24/21 10:58:00... Start Date: 02/24/21 Status: Ordered lidocaine 1.8% topical film 1 patch, Topically, Daily, leave on up to 12 hours, # 8 each, 0 Refills, Maintenance, 05/14/21 0:25:00 EDT, Film, [facility], Partial fill upon patient request if the prescriptionis for a schedule II opioid drug., 1 patch Topicall... Start Date: 05/14/21 Status: Ordered MiraLax oral powder for reconstitution = 17 Gm, By Mouth, Daily, dissolve in water before taking, # 255 Gm, 0 Refills, Maintenance, 05/12/21 6:39:00 EDT, REC Powder, [facility], Partial fill upon patient request if theprescription is for a schedule II opioid drug., 17... Start Date: 05/12/21 Status: Ordered MiraLax oral powder for reconstitution = 17 Gm, By Mouth, Daily, dissolve in water before taking, # 255 Gm, 0 Refills, Maintenance, 12/20/20 16:30:00 EST, REC Powder, [facility], Partial fill upon patient request if the prescription is for a schedule II opioid drug., 17... Start Date: 12/20/20 Status: Ordered oxyCODONE 5 mg oral tablet 5 mg, 1, tablet, By Mouth, Every 6 hours, PRN, # 15 tablet, Refills 0, Tot. Refills 0, Maintenance,as needed for pain, 05/12/21 6:39:00 EDT, Route to Pharmacy Electronically, [facility], Partial fill upon patient request [...] 0 Refills, Maintenance, 05/12/21 6:39:00 EDT, Tablet, [facility], Partial fill upon patient request if theprescription is for a schedule II opioid drug., 158... Start Date: 05/12/21 Status: Ordered simethicone 80 mg oral tablet 1 tablet = 80 mg, Chew, 3 times a day after meals, PRN as needed for gas, # 60 tablet, 0 Refills, Maintenance, 05/12/21 6:39:00 EDT, Tablet, [facility], Partial fill upon patient request [...] 05/12/21 6:38:00 EDT, Route to Pharmacy Electronically, [facility],Partial fill upon patient request if the prescripti... Start Date: 05/12/21 Status: Ordered Problem List Condition Confirmation Course Effective Dates Status H ealth Status Informant Abnormal Pap smear of cervix Confirmed Active H/O Anemia Confirmed Active Asthma Confirmed Active Bipolar disease, chronic 1 Confirmed Active ASCUS with positive high risk human papilloma virus (HPV) Confirmed 9/24/20 Active Constipation Confirmed Active H/O (PTSD) 2 Confirmed Active H/O seizures 3 Confirmed Active Housing instability Confirmed Active Hypothyroidism, adult 4 Confirmed Active Immune thrombocytopenia 5 Confirmed Active Tobacco use in Confirmed Active Anxiety and depression 6 Confirmed Active Social problem Confirmed Active Substance abuse 7 Confirmed 03/14/21 Active 1Pt reports during telehealth OBI visit that she is not currently engaged with mental health services nor does she want to at this time - [facility] services declined. 2Pt reports during telehealth OBI [...] at this time - [facility] services declined. 7Problem added by Discern Expert Results Radiology Reports * Exam Date Time Procedure Performing Provider Status 07/03/23 3:30 PM Chest 2 Views Frontal and Lat Panchito , Lucia; Pattie (Verified) Notes: (Chest 2 Views Frontal and Lat) Reason For Exam: Shortness of Breath RESULT: Chest 2 Views Frontal and Lat Chest 2 Views Frontal and Lat INDICATION: Reason: Shortness of Breath; Clinical Question(s): CHF COMPARISON: 04/27/2022 FINDINGS: LINES AND TUBES: None. LUNGS AND PLEURA: No evidence of confluent airspace opacity, lung consolidation or pulmonary vascular redistribution. Costophrenic sulci are maintained. No evidence of pneumothorax. HEART, MEDIASTINUM AND KING: Cardiomediastinal silhouette is within normal limits in size. BONES AND SOFT TISSUES: Mild shaped thoracolumbar curvature IMPRESSION: No evidence of active cardiopulmonary process WSN: [id number] Ordering Physician: Sari Lacey Dictated By: Paul Chavez Jr, MD Dictated Date/Time: 07/03/23 3:32 pm Reviewed By: Paul Chavez Jr, MD Signed By: Paul Chavez Jr, MD Signed Date/Time: 07/03/23 3:32 pm Transcribed By: WHITNEY Transcribed Date/Time: 07/03/23 3:31 pm Vital Signs Most recent to oldest [Reference Range]: 1 2 Height 158 cm (07/03/23 11:23 AM) Oxygen Saturation [94-100 %] 100 % (07/03/23 11:23 AM) 98 % (07/03/23 11:16 AM) Pulse Rate [55-90 bpm] 80 bpm (07/03/23 11:23 AM) 90 bpm (07/03/23 11:16 AM) Blood Pressure [90-138/55-84 mm Hg] 103/ 81mm Hg (07/03/23 11:23 AM) Respiratory Rate [16-30 br/min] 18 br/mi n (07/03/23 11:23 AM) Temperature [96.8-100.4 DegF] 98.6 DegF (07/03/23 11:23 AM) Mode of Delivery (Oxygen) Room air (07/03/23 11:23 AM) Room air (07/03/23 11:16 AM) Blood pressure sites Arm, right (07/03/23 11:23 AM) Temperature Route Oral (07/03/23 11:23 AM) Dry Weight 63 kg (07/03/23 11:23 AM) Dry Weight Obtained Via Patient/family s tated (07/03/23 11:23 AM) Social History Social History Type Response Smoking Status 10 or more cigarette s (1/2 pack or more)/day in last 30 days entered on: 02/13/21 Sex Patient Care team information Care Team Personnel Name: Milind Morales MD Position: [facility] Outreach Member Role: PCP Address: Address: [address] [place] [address]- Name: Shari Ureña DO Position: [facility] Resident Member Role: ED Attending Physician Address: Address: [address] [facility] [place] [address]- Care Team Related Persons Name: TEOFILO RODRÍGUEZ Address: [id number] Address: home [address] [place] [address] [place] Name: NO ONE, PT PATIENT Name: FRANSISCO RAY Address: home [address] [place] [address] Name: JUNIOR FLOR Address: home [address] [place] [address] Name: PETTY HUMPHREYS Address: home [address] [place] [address]
--- OUTSIDE RECORDS SUMMARY | 2023-09-12 20:51 | XMS_ITS | Continuity of Care Document ---
Author Name Unknown Organization [facility] Address [address] [place] [id number]- Care Team Providers Care Engineering Patternmaker Name Role Phone Andrew STONE, Milind Primary Care Physician Encounter [facility] Date(s): 05/29/21 - 06/28/[address] [address]- Allergies, Adverse Reactions, Alerts Substance Reaction Severity [...] give 325mg per patient preference and re-dose [id number] within 4 hours, if needed. Patient should [...] Refills, Maintenance, 02/06/21 9:12:00 EDT, Capsule, [facility]/pharmacy #[id number], Partial fill upon patient request if the prescription is for a schedule II opioid dr... Start Date: 02/06/21 Status: Ordered Dulcolax 10 mg rectal suppository 1 supp = 10 mg, Rectally, Daily, PRN as needed for constipation, # 10 supp, 0 Refills, Maintenance,05/14/21 0:20:00 EDT, Suppository, [facility], Partial fill upon patient request if the prescription is for a schedule II opioid dr... Start Date: 05/14/21 Status: Ordered ferrous sulfate 325 mg oral enteric coated tablet 325 mg, 1, tablet, By Mouth, Daily, # 90 tablet, Refills 2, Tot. Refills 2, Maintenance, 02/06/21 9:12:00 EDT, Route to Pharmacy Electronically, [facility]/pharmacy #[id number], Partial fill upon patient request if the prescription is for a schedule II opioid drug... Start Date: 02/06/21 Status: Ordered ibuprofen 800 mg oral tablet 800 mg, 1, tablet, By Mouth, Every 8 hours, # 30 tablet, Refills 0, Tot. Refills 0, Maintenance, 05/12/21 6:38:00 EDT, Route to Pharmacy Electronically, [facility], Partial fill upon patient request [...] 1 Refills, Maintenance, 02/24/21 12:06:00 EDT, Tablet, [facility], Partial fill upon patient request if the prescription is for a schedule II opioid drug., 158, cm, 02/24/21 10:58:00... Start Date: 02/24/21 Status: Ordered lidocaine 1.8% topical film 1 patch, Topically, Daily, leave on up to 12 hours, # 8 each, 0 Refills, Maintenance, 05/14/21 0:25:00 EDT, Film, [facility], Partial fill upon patient request if the prescriptionis for a schedule II opioid drug., 1 patch Topicall... Start Date: 05/14/21 Status: Ordered MiraLax oral powder for reconstitution = 17 Gm, By Mouth, Daily, dissolve in water before taking, # 255 Gm, 0 Refills, Maintenance, 05/12/21 6:39:00 EDT, REC Powder, [facility], Partial fill upon patient request if theprescription is for a schedule II opioid drug., 17... Start Date: 05/12/21 Status: Ordered MiraLax oral powder for reconstitution = 17 Gm, By Mouth, Daily, dissolve in water before taking, # 255 Gm, 0 Refills, Maintenance, 12/20/20 16:30:00 EST, REC Powder, [facility], Partial fill upon patient request if the prescription is for a schedule II opioid drug., 17... Start Date: 12/20/20 Status: Ordered oxyCODONE 5 mg oral tablet 5 mg, 1, tablet, By Mouth, Every 6 hours, PRN, # 15 tablet, Refills 0, Tot. Refills 0, Maintenance,as needed for pain, 05/12/21 6:39:00 EDT, Route to Pharmacy Electronically, [facility], Partial fill upon patient request [...] 0 Refills, Maintenance, 05/12/21 6:39:00 EDT, Tablet, [facility], Partial fill upon patient request if theprescription is for a schedule II opioid drug., 158... Start Date: 05/12/21 Status: Ordered simethicone 80 mg oral tablet 1 tablet = 80 mg, Chew, 3 times a day after meals, PRN as needed for gas, # 60 tablet, 0 Refills, Maintenance, 05/12/21 6:39:00 EDT, Tablet, [facility], Partial fill upon patient request [...] 05/12/21 6:38:00 EDT, Route to Pharmacy Electronically, [facility],Partial fill upon patient request if [...]
--- OUTSIDE RECORDS SUMMARY | 2023-09-12 20:52 | XMS_ITS | Continuity of Care Document ---
Author Name Unknown Organization [facility] Address [address] [place] [id number]- Care Team Providers Care Canine Service Teacher Name Role Phone Andrew STONE, Milind Primary Care Physician Encounter [facility] [place] Date(s): 10/06/21 - 11/05/[address] [address]- Attending Physician: Marie Flores Admitting Physician: AdmMarie [...] give 325mg per patient preference and re-dose [id number] within 4 hours, if needed. Patient should [...] 3 Refills, Maintenance, 02/06/21 9:12:00 EDT, Capsule, [facility]/pharmacy #[id number], Partial fill upon patient request if the prescription is for a schedule II opioid dr... Start Date: 02/06/21 Status: Ordered Dulcolax 10 mg rectal suppository 1 supp = 10 mg, Rectally, Daily, PRN as needed for constipation, # 10 supp, 0 Refills, Maintenance,05/14/21 0:20:00 EDT, Suppository, [facility], Partial fill upon patient request if the prescription is for a schedule II opioid dr... Start Date: 05/14/21 Status: Ordered ferrous sulfate 325 mg oral enteric coated tablet 325 mg, 1, tablet, By Mouth, Daily, # 90 tablet, Refills 2, Tot. Refills 2, Maintenance, 02/06/21 9:12:00 EDT, Route to Pharmacy Electronically, [facility]/pharmacy #[id number], Partial fill upon patient request if the prescription is for a schedule II opioid drug... Start Date: 02/06/21 Status: Ordered ibuprofen 800 mg oral tablet 800 mg, 1, tablet, By Mouth, Every 8 hours, # 30 tablet, Refills 0, Tot. Refills 0, Maintenance, 05/12/21 6:38:00 EDT, Route to Pharmacy Electronically, [facility], Partial fill upon patient [...] 1 Refills, Maintenance, 02/24/21 12:06:00 EDT, Tablet, [facility], Partial fill upon patient request if the prescription is for a schedule II opioid drug., 158, cm, 02/24/21 10:58:00... Start Date: 02/24/21 Status: Ordered lidocaine 1.8% topical film 1 patch, Topically, Daily, leave on up to 12 hours, # 8 each, 0 Refills, Maintenance, 05/14/21 0:25:00 EDT, Film, [facility], Partial fill upon patient request if the prescriptionis for a schedule II opioid drug., 1 patch Topicall... Start Date: 05/14/21 Status: Ordered MiraLax oral powder for reconstitution = 17 Gm, By Mouth, Daily, dissolve in water before taking, # 255 Gm, 0 Refills, Maintenance, 05/12/21 6:39:00 EDT, REC Powder, [facility], Partial fill upon patient request if theprescription is for a schedule II opioid drug., 17... Start Date: 05/12/21 Status: Ordered MiraLax oral powder for reconstitution = 17 Gm, By Mouth, Daily, dissolve in water before taking, # 255 Gm, 0 Refills, Maintenance, 12/20/20 16:30:00 EST, REC Powder, [facility], Partial fill upon patient request if the prescription is for a schedule II opioid drug., 17... Start Date: 12/20/20 Status: Ordered oxyCODONE 5 mg oral tablet 5 mg, 1, tablet, By Mouth, Every 6 hours, PRN, # 15 tablet, Refills 0, Tot. Refills 0, Maintenance,as needed for pain, 05/12/21 6:39:00 EDT, Route to Pharmacy Electronically, [facility], Partial fill upon patient request if the pr... Start Date: 05/12/21 Status: Ordered Multivitamins with Folic Acid 0.8 mg oral capsule 1 capsule, By Mouth, Daily, # 90 capsule, 3 Refills, Maintenance, 02/06/21 9:12:00 EDT, Capsule, [id number], Please sub for any vit covered by insurance if needed, 1 capsule By MouthDaily, 158, cm, 01/16/21 16:22:00 EDT, Height, 66.1... Start Date: 02/06/21 Status: Ordered senna - oral tablet 2 tablet, By Mouth, Daily at bedtime, PRN for constipation, # 60 tablet, 0 Refills, Maintenance, 05/12/21 6:39:00 EDT, Tablet, [facility], Partial fill upon patient request if theprescription is for a schedule II opioid drug., 158... Start Date: 05/12/21 Status: Ordered simethicone 80 mg oral tablet 1 tablet = 80 mg, Chew, 3 times a day after meals, PRN as needed for gas, # 60 tablet, 0 Refills, Maintenance, 05/12/21 6:39:00 EDT, Tablet, [facility], Partial fill upon patient [...] 05/12/21 6:38:00 EDT, Route to Pharmacy Electronically, [facility],Partial fill upon patient request if [...]
--- OUTSIDE RECORDS SUMMARY | 2023-09-12 20:52 | XMS_ITS | Continuity of Care Document ---
Author Name Unknown Organization [facility] Address [address] [place] [address]- Care Team Providers Care Digital Field Service Technician Name Role Phone Andrew STONE, Milind Primary Care Physician [phone] [place] [facility] [place] - 06/08/[address] [address]- Attending Physician: Not on Staff, Attending MD [...] give 325mg per patient preference and re-dose [id number] within 4 hours, if needed. Patient should [...] 3 Refills, Maintenance, 02/06/21 9:12:00 EDT, Capsule, [facility]/pharmacy #[id number], Partial fill upon patient request if the prescription is for a schedule II opioid dr... Start Date: 02/06/21 Status: Ordered Dulcolax 10 mg rectal suppository 1 supp = 10 mg, Rectally, Daily, PRN as needed for constipation, # 10 supp, 0 Refills, Maintenance,05/14/21 0:20:00 EDT, Suppository, [facility], Partial fill upon patient request if the prescription is for a schedule II opioid dr... Start Date: 05/14/21 Status: Ordered ferrous sulfate 325 mg oral enteric coated tablet 325 mg, 1, tablet, By Mouth, Daily, # 90 tablet, Refills 2, Tot. Refills 2, Maintenance, 02/06/21 9:12:00 EDT, Route to Pharmacy Electronically, [facility]/pharmacy #[id number], Partial fill upon patient request if the prescription is for a schedule II opioid drug... Start Date: 02/06/21 Status: Ordered ibuprofen 800 mg oral tablet 800 mg, 1, tablet, By Mouth, Every 8 hours, # 30 tablet, Refills 0, Tot. Refills 0, Maintenance, 05/12/21 6:38:00 EDT, Route to Pharmacy Electronically, [facility], Partial fill upon patient [...] 1 Refills, Maintenance, 02/24/21 12:06:00 EDT, Tablet, [facility], Partial fill upon patient request if the prescription is for a schedule II opioid drug., 158, cm, 02/24/21 10:58:00... Start Date: 02/24/21 Status: Ordered lidocaine 1.8% topical film 1 patch, Topically, Daily, leave on up to 12 hours, # 8 each, 0 Refills, Maintenance, 05/14/21 0:25:00 EDT, Film, [facility], Partial fill upon patient request if the prescriptionis for a schedule II opioid drug., 1 patch Topicall... Start Date: 05/14/21 Status: Ordered MiraLax oral powder for reconstitution = 17 Gm, By Mouth, Daily, dissolve in water before taking, # 255 Gm, 0 Refills, Maintenance, 05/12/21 6:39:00 EDT, REC Powder, [facility], Partial fill upon patient request if theprescription is for a schedule II opioid drug., 17... Start Date: 05/12/21 Status: Ordered MiraLax oral powder for reconstitution = 17 Gm, By Mouth, Daily, dissolve in water before taking, # 255 Gm, 0 Refills, Maintenance, 12/20/20 16:30:00 EST, REC Powder, [facility], Partial fill upon patient request if the prescription is for a schedule II opioid drug., 17... Start Date: 12/20/20 Status: Ordered oxyCODONE 5 mg oral tablet 5 mg, 1, tablet, By Mouth, Every 6 hours, PRN, # 15 tablet, Refills 0, Tot. Refills 0, Maintenance,as needed for pain, 05/12/21 6:39:00 EDT, Route to Pharmacy Electronically, [facility], Partial fill upon patient [...] 0 Refills, Maintenance, 05/12/21 6:39:00 EDT, Tablet, [facility], Partial fill upon patient request if theprescription is for a schedule II opioid drug., 158... Start Date: 05/12/21 Status: Ordered simethicone 80 mg oral tablet 1 tablet = 80 mg, Chew, 3 times a day after meals, PRN as needed for gas, # 60 tablet, 0 Refills, Maintenance, 05/12/21 6:39:00 EDT, Tablet, [facility], Partial fill upon patient [...] 05/12/21 6:38:00 EDT, Route to Pharmacy Electronically, [facility],Partial fill upon patient request if [...]
--- OUTSIDE RECORDS SUMMARY | 2023-09-12 20:52 | XMS_ITS | Continuity of Care Document ---
Author Name Unknown Organization [facility] Address [address] [place] [id number]- Care Team Providers Care Logistics Project Manager Name Role Phone Andrew STONE, Milind Primary Care Physician Encounter [facility] [place] Date(s): 03/15/21 - 04/14/[address] [address]- Allergies, Adverse Reactions, Alerts Substance Reaction Severity [...] Refills, Maintenance, 02/06/21 9:12:00 EDT, Capsule, [id number], Partial fill upon patient request if the prescription is for a schedule II opioid . Start Date: 02/06/21 Status: Ordered ferrous sulfate 325 mg oral enteric coated tablet 325 mg, 1, tablet, By Mouth, Daily, # 90 tablet, Refills 2, Tot. Refills 2, Maintenance, 02/06/21 9:12:00 EDT, Route to Pharmacy Electronically, [facility]/pharmacy #[id number], Partial fill upon patient request if the [...] Refills, Soft Stop, 12/20/20 11:48:00 EST, Solution, [facility], Partial fill upon patient request if the prescription is for a schedule II opioid drug., 158, cm, 12/20/20 8:04:00... Start Date: 12/20/20 Stop Date: 04/09/23 Status: Ordered levothyroxine 0.05 mg oral tablet 1 tablet = 50 mcg, By Mouth, Daily, # 90 tablet, 1 Refills, Maintenance, 02/24/21 12:06:00 EDT, Tablet, [facility], Partial fill upon patient request if the prescription is for a schedule II opioid drug., 158, cm, 02/24/21 10:58:00... Start Date: 02/24/21 Status: Ordered levothyroxine 50 mcg (0.05 mg) oral capsule 1 capsule = 50 mcg, By Mouth, Daily, # 90 capsule, 1 Refills, Maintenance, 02/16/21 12:45:00 EDT, Capsule, [facility]/pharmacy #[id number], Partial fill upon patient request if the prescription is for a schedule II opioid drug., 158, cm, 02/14/21 9:09:00 EDT, Heig... Start Date: 02/16/21 Status: Ordered loratadine 10 mg oral tablet 1, tablet, By Mouth, Daily, # 30 tablet, Refills 1, Tot. Refills 0, Maintenance, 04/08/21 18:40:00 EDT, Route to Pharmacy Electronically, [id number], 158, cm, 04/07/21 10:47:00 EDT, Height, 72.2, [...] insurance if needed, 1 capsule By MouthDamichell, Antonio, cm, 01/16/21 16:22:00 EDT, Height, 66.1... Start [...]
--- OUTSIDE RECORDS SUMMARY | 2023-09-12 20:52 | XMS_ITS | Continuity of Care Document ---
Author Name Unknown Organization [facility] Address [address] [place] [address]- Care Team Providers Care Air Pollution Control Engineer Name Role Phone Andrew STONE, Milind Primary Care Physician Encounter [facility] [place] Date(s): 02/17/21 - 03/19/21 [facility] [address] [place] [id number] Allergies, Adverse Reactions, Alerts Substance Reaction Severity [...] Refills, Maintenance, 02/06/21 9:12:00 EDT, Capsule, [id number], Partial fill upon patient request if the prescription is for a schedule II opioid . Start Date: 02/06/21 Status: Ordered ferrous sulfate 325 mg oral enteric coated tablet 325 mg, 1, tablet, By Mouth, Daily, # 90 tablet, Refills 2, Tot. Refills 2, Maintenance, 02/06/21 9:12:00 EDT, Route to Pharmacy Electronically, [id number], Partial fill upon patient request if the [...] Refills, Soft Stop, 12/20/20 11:48:00 EST, Solution, [facility], Partial fill upon patient request if the prescription is for a schedule II opioid drug., 158, cm, 12/20/20 8:04:00... Start Date: 12/20/20 Stop Date: 04/09/23 Status: Ordered levothyroxine 0.05 mg oral tablet 1 tablet = 50 mcg, By Mouth, Daily, # 90 tablet, 1 Refills, Maintenance, 02/24/21 12:06:00 EDT, Tablet, [facility], Partial fill upon patient request if the prescription is for a schedule II opioid drug., 158, cm, 02/24/21 10:58:00... Start Date: 02/24/21 Status: Ordered levothyroxine 50 mcg (0.05 mg) oral capsule 1 capsule = 50 mcg, By Mouth, Daily, # 90 capsule, 1 Refills, Maintenance, 02/16/21 12:45:00 EDT, Capsule, [facility]/pharmacy #[id number], Partial fill upon patient request if the prescription is for a schedule II opioid drug., 158, cm, 02/14/21 9:09:00 EDT, Heig... Start Date: 02/16/21 Status: Ordered loratadine 10 mg oral tablet 1, tablet, By Mouth, Daily, # 30 tablet, Refills 1, Tot. Refills 0, Maintenance, 03/10/21 6:57:00 EDT, Route to Pharmacy Electronically, [id number], 158, cm, 03/03/21 11:11:00 EDT, Height, 70.5,kg, 02/13/21 12:38:00 EDT, Dry Weight Start Date: 03/10/21 Status: Ordered MiraLax oral powder for reconstitution = 17 Gm, By Mouth, Daily, dissolve in water before taking, # 255 Gm, 0 Refills, Maintenance, 12/20/20 16:30:00 EST, REC Powder, [facility], Partial fill upon patient request if [...]
--- OUTSIDE RECORDS SUMMARY | 2023-09-12 20:52 | XMS_ITS | Continuity of Care Document ---
Author Name Unknown Organization [facility] Address [address] [place] [id number]- Care Team Providers Care Front Desk Manager Name Role Phone Andrew STONE, Milind Primary Care Physician [phone] Encounter [facility] [place] Date(s): 04/11/21 - 07/06/[address] [address]- Attending Physician: Not on Staff, Attending MD Allergies, Adverse Reactions, Alerts Substance Reaction Severity Status codeine Active amoxicillin Active Vicodin Active Adhesive Bandage Active Dilaudid Hives C/O: a swelling Active [...] give 325mg per patient preference and re-dose [id number] within 4 hours, if needed. Patient should [...] 3 Refills, Maintenance, 02/06/21 9:12:00 EDT, Capsule, [facility]/pharmacy #[id number], Partial fill upon patient request if the prescription is for a schedule II opioid dr... Start Date: 02/06/21 Status: Ordered Dulcolax 10 mg rectal suppository 1 supp = 10 mg, Rectally, Daily, PRN as needed for constipation, # 10 supp, 0 Refills, Maintenance,05/14/21 0:20:00 EDT, Suppository, [facility], Partial fill upon patient request if the prescription is for a schedule II opioid dr... Start Date: 05/14/21 Status: Ordered ferrous sulfate 325 mg oral enteric coated tablet 325 mg, 1, tablet, By Mouth, Daily, # 90 tablet, Refills 2, Tot. Refills 2, Maintenance, 02/06/21 9:12:00 EDT, Route to Pharmacy Electronically, [facility]/pharmacy #[id number], Partial fill upon patient request if the prescription is for a schedule II opioid drug... Start Date: 02/06/21 Status: Ordered ibuprofen 800 mg oral tablet 800 mg, 1, tablet, By Mouth, Every 8 hours, # 30 tablet, Refills 0, Tot. Refills 0, Maintenance, 05/12/21 6:38:00 EDT, Route to Pharmacy Electronically, [facility], Partial fill upon patient [...] 1 Refills, Maintenance, 02/24/21 12:06:00 EDT, Tablet, [facility], Partial fill upon patient request if the prescription is for a schedule II opioid drug., 158, cm, 02/24/21 10:58:00... Start Date: 02/24/21 Status: Ordered lidocaine 1.8% topical film 1 patch, Topically, Daily, leave on up to 12 hours, # 8 each, 0 Refills, Maintenance, 05/14/21 0:25:00 EDT, Film, [facility], Partial fill upon patient request if the prescriptionis for a schedule II opioid drug., 1 patch Topicall... Start Date: 05/14/21 Status: Ordered MiraLax oral powder for reconstitution = 17 Gm, By Mouth, Daily, dissolve in water before taking, # 255 Gm, 0 Refills, Maintenance, 05/12/21 6:39:00 EDT, REC Powder, [facility], Partial fill upon patient request if theprescription is for a schedule II opioid drug., 17... Start Date: 05/12/21 Status: Ordered MiraLax oral powder for reconstitution = 17 Gm, By Mouth, Daily, dissolve in water before taking, # 255 Gm, 0 Refills, Maintenance, 12/20/20 16:30:00 EST, REC Powder, [facility], Partial fill upon patient request if the prescription is for a schedule II opioid drug., 17... Start Date: 12/20/20 Status: Ordered oxyCODONE 5 mg oral tablet 5 mg, 1, tablet, By Mouth, Every 6 hours, PRN, # 15 tablet, Refills 0, Tot. Refills 0, Maintenance,as needed for pain, 05/12/21 6:39:00 EDT, Route to Pharmacy Electronically, [facility], Partial fill upon patient [...] 0 Refills, Maintenance, 05/12/21 6:39:00 EDT, Tablet, [facility], Partial fill upon patient request if theprescription is for a schedule II opioid drug., 158... Start Date: 05/12/21 Status: Ordered simethicone 80 mg oral tablet 1 tablet = 80 mg, Chew, 3 times a day after meals, PRN as needed for gas, # 60 tablet, 0 Refills, Maintenance, 05/12/21 6:39:00 EDT, Tablet, [facility], Partial fill upon patient [...] 05/12/21 6:38:00 EDT, Route to Pharmacy Electronically, [facility],Partial fill upon patient request [...]
--- OUTSIDE RECORDS SUMMARY | 2023-09-12 20:52 | XMS_ITS | Continuity of Care Document ---
Author Name Unknown Organization [facility] ter Address [address] [place] [address]- Care Team Providers Care Tacking Machine Operator Name Role Phone Andrew STONE, Milind Primary Care Physician Encounter [facility] ACCT R [id number] Date(s): 05/06/21 - 05/06/[address] [address] Discharge Disposition: A-D/C Home Attending Physician: Quita Chew DO Admitting Physician: [...] Refills, Maintenance, 02/06/21 9:12:00 EDT, [facility], [id number], Partial fill upon patient request if the prescription is for a schedule II opioid . Start Date: 02/06/21 Status: Ordered ferrous sulfate 325 mg oral enteric coated tablet 325 mg, 1, tablet, By Mouth, Daily, # 90 tablet, Refills 2, Tot. Refills 2, Maintenance, 02/06/21 9:12:00 EDT, Route to Pharmacy Electronically, [facility]/pharmacy #[id number], Partial fill upon patient request if the [...] Refills, Soft Stop, 12/20/20 11:48:00 EST, Solution, [facility], Partial fill upon patient request if the prescription is for a schedule II opioid drug., 158, cm, 12/20/20 8:04:00... Start Date: 12/20/20 Stop Date: 04/09/23 Status: Ordered levothyroxine 0.05 mg oral tablet 1 tablet = 50 mcg, By Mouth, Daily, # 90 tablet, 1 Refills, Maintenance, 02/24/21 12:06:00 EDT, Tablet, [facility], Partial fill upon patient request if the prescription is for a schedule II opioid drug., 158, cm, 02/24/21 10:58:00... Start Date: 02/24/21 Status: Ordered levothyroxine 50 mcg (0.05 mg) oral capsule 1 capsule = 50 mcg, By Mouth, Daily, # 90 capsule, 1 Refills, Maintenance, 02/16/21 12:45:00 EDT, Capsule, [facility]/pharmacy #[id number], Partial fill upon patient request if the prescription is for a schedule II opioid drug., 158, tamra, 02/14/21 9:09:00 EDT, Heig... Start Date: 02/16/21 Status: Ordered loratadine 10 mg oral tablet 1, tablet, By Mouth, Daily, # 30 tablet, Refills 1, Tot. Refills 0, Maintenance, 04/08/21 18:40:00 EDT, Route to Pharmacy Electronically, [id number], 158, cm, 04/07/21 10:47:00 EDT, Height, 72.2, kg, 03/29/21 22:13:00 EDT, Dry Weight Start Date: 04/08/21 Status: Ordered MiraLax oral powder for reconstitution = 17 Gm, By Mouth, Daily, dissolve in water before taking, # 255 Gm, 0 Refills, Maintenance, 12/20/20 16:30:00 EST, REC Powder, [facility], Partial fill upon patient request if the prescription is for a schedule II opioid drug., 17... Start Date: 12/20/20 Status: Ordered Multivitamins with Folic Acid 0.8 mg oral capsule 1 capsule, By Mouth, Daily, # 90 capsule, 3 Refills, Maintenance, 02/06/21 9:12:00 EDT, [facility]apsule, [id number], Please sub for any vit covered by [...] she want to at this time - [facility] services declined. 3Problem added by Discern Expert 4Pt reports during telehealth OBI visit that she is not currently engaged with mental health services nor does she want to at this time - [facility] services declined. 5per pt's own history during [...] she want to at this time - [facility] services declined. 9Problem added by Discern Expert Social History Social History Type Response Smoking Status 10 or more cigarette s (1/2 pack or more)/day in last 30 days entered on: 02/13/21 Sex
--- OUTSIDE RECORDS SUMMARY | 2023-09-12 20:52 | XMS_ITS | Continuity of Care Document ---
Author Name Unknown Organization [facility] Address [address] [place] [address]- Care Team Providers Care Engraver Set Up Operator Name Role Phone Andrew STONE, Milind Primary Care Physician Encounter [facility] Date(s): 03/04/21 - 04/03/21 [facility] [address] [place] [id number] Attending Physician: Marie Flores Admitting Physician: AdmtrMarie Referring Physician: Admtr, [id number] Allergies, Adverse Reactions, Alerts Substance Reaction Severity [...] Refills, Maintenance, 02/06/21 9:12:00 EDT, [facility], [id number], Partial fill upon patient request if the prescription is for a schedule II opioid . Start Date: 02/06/21 Status: Ordered ferrous sulfate 325 mg oral enteric coated tablet 325 mg, 1, tablet, By Mouth, Daily, # 90 tablet, Refills 2, Tot. Refills 2, Maintenance, 02/06/21 9:12:00 EDT, Route to Pharmacy Electronically, [facility]/pharmacy #[id number], Partial fill upon patient request if the [...] Refills, Soft Stop, 12/20/20 11:48:00 EST, Solution, [facility], Partial fill upon patient request [...] 1 Refills, Maintenance, 02/16/21 12:45:00 EDT, Capsule, [facility]/pharmacy #[id number], Partial fill upon patient request if the prescription is for a schedule II opioid drug., 158, tamra, 02/14/21 9:09:00 EDT, Heig... Start Date: 02/16/21 Status: Ordered loratadine 10 mg oral tablet 1, tablet, By Mouth, Daily, # 30 tablet, Refills 1, Tot. Refills 0, Maintenance, 03/10/21 6:57:00 EDT, Route to Pharmacy Electronically, [facility] STORE [id number], 158tamra, 03/03/21 11:11:00 EDT, Height, 70.5,kg, 02/13/21 12:38:00 [...] insurance if needed, 1 capsule By MouthDamichell, Antonio cm, 01/16/21 16:22:00 EDT, Height, 66.1... Start [...]
--- OUTSIDE RECORDS SUMMARY | 2023-09-12 20:52 | XMS_ITS | Continuity of Care Document ---
Author Name Unknown Organization [facility] ter Address [address] [place] [phone]- Care Team Providers Care Concession Worker Name Role Phone Andrew STONE, Milind Primary Care Physician Encounter [facility] ACCT R [id number] Date(s): 03/29/21 - 03/30/[address] [address] Discharge Disposition: A-D/C Home Attending Physician: Alvaro Sterling MD Admitting Physician: Alvaro Sterling MD Referring Physician: Alvaro Sterling MD Allergies, Adverse Reactions, Alerts Substance Reaction [...] Refills, Maintenance, 02/06/21 9:12:00 EDT, [facility], [id number], Partial fill upon patient request if the prescription is for a schedule II opioid . Start Date: 02/06/21 Status: Ordered ferrous sulfate 325 mg oral enteric coated tablet 325 mg, 1, tablet, By Mouth, Daily, # 90 tablet, Refills 2, Tot. Refills 2, Maintenance, 02/06/21 9:12:00 EDT, Route to Pharmacy Electronically, [facility]/pharmacy #[id number], Partial fill upon patient request if the [...] Refills, Soft Stop, 12/20/20 11:48:00 EST, Solution, [facility], Partial fill upon patient request if the prescription is for a schedule II opioid drug., 158, cm, 12/20/20 8:04:00... Start Date: 12/20/20 Stop Date: 04/09/23 Status: Ordered levothyroxine 0.05 mg oral tablet 1 tablet = 50 mcg, By Mouth, Daily, # 90 tablet, 1 Refills, Maintenance, 02/24/21 12:06:00 EDT, Tablet, [facility], Partial fill upon patient request [...] EDT, Route to [facility], [id number], 158, cm, 03/03/21 11:11:00 EDT, Height, 70.5,kg, 02/13/21 12:38:00 EDT, Dry Weight Start Date: 03/10/21 Status: Ordered MiraLax oral powder for reconstitution = 17 Gm, By Mouth, Daily, dissolve in water before taking, # 255 Gm, 0 Refills, Maintenance, 12/20/20 16:30:00 EST, REC Powder, [facility], Partial fill upon patient request if the prescription is for a schedule II opioid drug., 17... Start Date: 12/20/20 Status: Ordered Multivitamins with Folic Acid 0.8 mg oral capsule 1 capsule, By Mouth, Daily, # 90 capsule, 3 Refills, Maintenance, 02/06/21 9:12:00 EDT, Capsule, [facility]/pharmacy #[id number], Please sub for any vit covered by insurance if needed, 1 capsule By MouthAura, 158, cm, 01/16/21 16:22:00 EDT, Height, 66.1... [...] services declined. 9Problem added by Sushil Expert Vital Signs Most recent to oldest [Reference Range]: 1 2 3 Height 158 cm (03/29/21 10:13 PM) Weight 72.2 kg (03/29/21 10:13 PM) Oxygen Saturation [94-100 %] 100 % (03/30/21 12:45 AM) 99 % (03/29/21 11:05 PM) 99 % (03/29/21 10:40 PM) Blood Pressure [90-138/55-84 mm Hg] 100/57mm Hg (03/29/21 10:40 PM) Respiratory Rate [16-30 br/min] 18 br/min (03/29/21 10:40 PM) Temperature [96.8-100.4 DegF] 99.0 DegF (03/29/21 10:13 PM) Mode of Delivery (Oxygen) Room air (03/29/21 10:40 PM) Blood pressure sites Arm, right (03/29/21 10:40 PM) Temperature Route Oral (03/29/21 10:13 PM) Dry Weight 72.2 kg (03/29/21 10:13 PM) Weight Obtained Via Standing scale (03/29/21 10:13 PM) Dry Weight Obtained Via Standing scale (03/29/21 10:13 PM) Social History Social History Type Response Smoking Status 10 or more cigarette s (1/2 pack or more)/day in last 30 days entered on: 02/13/21 Sex
--- OUTSIDE RECORDS SUMMARY | 2023-09-12 20:52 | XMS_ITS | Continuity of Care Document ---
Author Name Unknown Organization [facility] Address [address] [place] [phone]- Care Team Providers Care Telephone Information Clerk Name Role Phone Andrew STONE, Milind Primary Care Physician [place] [facility] Date(s): 05/03/21 - 06/08/[address] [address]- Attending Physician: Sophy Hernandez DO Admitting Physician: Sophy Hernandez DO Referring Physician: Lacy Juares DO Allergies, [...] give 325mg per patient preference and re-dose [id number] within 4 hours, if needed. Patient should [...] Maintenance, 02/06/21 9:12:00 EDT, Capsule, [facility]/pharmacy #[id number], Partial fill upon patient request if the prescription is for a schedule II opioid dr... Start Date: 02/06/21 Status: Ordered Dulcolax 10 mg rectal suppository 1 supp = 10 mg, Rectally, Daily, PRN as needed for constipation, # 10 supp, 0 Refills, Maintenance,05/14/21 0:20:00 EDT, Suppository, [facility], Partial fill upon patient request if the prescription is for a schedule II opioid dr... Start Date: 05/14/21 Status: Ordered ferrous sulfate 325 mg oral enteric coated tablet 325 mg, 1, tablet, By Mouth, Daily, # 90 tablet, Refills 2, Tot. Refills 2, Maintenance, 02/06/21 9:12:00 EDT, Route to Pharmacy Electronically, [facility]/pharmacy #[id number], Partial fill upon patient request if the prescription is for a schedule II opioid drug... Start Date: 02/06/21 Status: Ordered ibuprofen 800 mg oral tablet 800 mg, 1, tablet, By Mouth, Every 8 hours, # 30 tablet, Refills 0, Tot. Refills 0, Maintenance, 05/12/21 6:38:00 EDT, Route to Pharmacy Electronically, [facility], Partial fill upon patient request [...] 1 Refills, Maintenance, 02/24/21 12:06:00 EDT, Tablet, [facility], Partial fill upon patient request if the prescription is for a schedule II opioid drug., 158, cm, 02/24/21 10:58:00... Start Date: 02/24/21 Status: Ordered lidocaine 1.8% topical film 1 patch, Topically, Daily, leave on up to 12 hours, # 8 each, 0 Refills, Maintenance, 05/14/21 0:25:00 EDT, Film, [facility], Partial fill upon patient request if the prescriptionis for a schedule II opioid drug., 1 patch Topicall... Start Date: 05/14/21 Status: Ordered MiraLax oral powder for reconstitution = 17 Gm, By Mouth, Daily, dissolve in water before taking, # 255 Gm, 0 Refills, Maintenance, 05/12/21 6:39:00 EDT, REC Powder, [facility], Partial fill upon patient request if theprescription is for a schedule II opioid drug., 17... Start Date: 05/12/21 Status: Ordered MiraLax oral powder for reconstitution = 17 Gm, By Mouth, Daily, dissolve in water before taking, # 255 Gm, 0 Refills, Maintenance, 12/20/20 16:30:00 EST, REC Powder, [facility], Partial fill upon patient request if the prescription is for a schedule II opioid drug., 17... Start Date: 12/20/20 Status: Ordered oxyCODONE 5 mg oral tablet 5 mg, 1, tablet, By Mouth, Every 6 hours, PRN, # 15 tablet, Refills 0, Tot. Refills 0, Maintenance,as needed for pain, 05/12/21 6:39:00 EDT, Route to Pharmacy Electronically, [facility], Partial fill upon patient request if the pr... Start Date: 05/12/21 Status: Ordered Multivitamins with Folic Acid 0.8 mg oral capsule 1 capsule, By Mouth, Daily, # 90 capsule, 3 Refills, Maintenance, 02/06/21 9:12:00 EDT, [facility], [id number], Please sub for any vit covered by insurance if needed, 1 capsule By MouthDaily, 158, cm, 01/16/21 16:22:00 EDT, Height, 66.1... Start Date: 02/06/21 Status: Ordered senna - oral tablet 2 tablet, By Mouth, Daily at bedtime, PRN for constipation, # 60 tablet, 0 Refills, Maintenance, 05/12/21 6:39:00 EDT, Tablet, [facility], Partial fill upon patient request if theprescription is for a schedule II opioid drug., 158... Start Date: 05/12/21 Status: Ordered simethicone 80 mg oral tablet 1 tablet = 80 mg, Chew, 3 times a day after meals, PRN as needed for gas, # 60 tablet, 0 Refills, Maintenance, 05/12/21 6:39:00 EDT, Tablet, [facility], Partial fill upon patient request [...] 05/12/21 6:38:00 EDT, Route to Pharmacy Electronically, [facility],Partial fill upon patient request if [...]
--- OUTSIDE RECORDS SUMMARY | 2023-09-12 20:52 | XMS_ITS | Continuity of Care Document ---
Author Name Unknown Organization [facility] Address [address] [place] [id number]- Care Team Providers Care Director Talent Acquisition Name Role Phone Andrew STONE, Milind Primary Care Physician Encounter [facility] Date(s): 01/20/21 - 02/19/[address] [address]- Allergies, Adverse Reactions, Alerts Substance Reaction Severity [...] 02/21/21 12:12:00 EDT, 02/10/21 20:42:00 EDT, Suppository, [facility]/pharmacy #[id number], Partial fill upon patient request if the prescription is for a schedule II opioid drug., tamra Alvarez,... Start Date: 02/10/21 Stop Date: 02/21/21 Status: Ordered HYDROXYprogesterone 250 mg/mL intramuscular solution 1 mL = 250 mg, Intramuscular, Every week, # 4 each, 5 Refills, Soft Stop, 12/20/20 11:48:00 EST, Solution, [facility], Partial fill upon patient request if the prescription is for a schedule II opioid drug., tamra Alvarez, 12/20/20 8:04:00... Start Date: 12/20/20 Stop Date: 04/09/23 Status: Ordered levothyroxine 50 mcg (0.05 mg) oral capsule 1 capsule = 50 mcg, By Mouth, Daily, # 90 capsule, 1 Refills, Maintenance, 02/16/21 12:45:00 EDT, Capsule, [facility]/pharmacy #[id number], Partial fill upon patient request if [...] by insurance if needed, 1 capsule By MouthAntonio Chavarria cm, 01/16/21 16:22:00 EDT, Height, 66.1... Start [...] she want to at this time - [facility] services declined. 3per pt's own history during [...]
--- OUTSIDE RECORDS SUMMARY | 2023-09-12 20:52 | XMS_ITS | Continuity of Care Document ---
Author Name Unknown Organization [facility] Address [address] [place] [address]- Care Team Providers Care Pipeline Dispatcher Name Role Phone Not on Staff, PCP Primary Care Physician Unavail able [place] [facility] 10/28/20 - 12/18/20 [facility] [address] [address]- Attending Physician: Not on Staff, Attending MD [...]
--- OUTSIDE RECORDS SUMMARY | 2023-09-12 20:52 | XMS_ITS | Continuity of Care Document ---
Author Name Unknown Organization [facility] Address [address] [place] [address]- Care Team Providers Care Cut In Station Operator Name Role Phone Not on Staff, PCP Primary Care Physician Unavail able Encounter [facility] Date(s): 06/06/20 - 06/06/[address] [address]- [facility] Discharge Disposition: A-D/C Walkout Attending Physician: Laura Hidalgo MD Admitting Physician: Laura Hidalgo MD Referring Physician: Not on Staff, Referring MD Allergies, Adverse Reactions, Alerts Substance Reaction Severity Status codeine Active amoxicillin Active Dilaudid Hives C/O: a swelling Active Vicodin Active Immunizations Given and Recorded Vaccine Date Status Refusal Reason tetanus/diphtheria/pertussis, acel(Tdap) 04/03/12 Given Medications acetaminophen 325 mg oral tablet 650 mg, 2, tablet, By Mouth, Every 4 hours, PRN, # 50 tablet, Refills 0, Tot. Refills 0, Maintenance, as needed for pain, 11/18/18 17:48:31 EST, Print Requisition Start Date: 11/18/18 Status: Ordered Bentyl 20 mg oral tablet 1 tablet = 20 mg, By Mouth, 4 times a day, # 28 tablet, 0 Refills, Maintenance, 06/08/14 21:09:44 Start Date: 06/08/14 Stop Date: 06/15/14 Status: Ordered clotrimazole topical 1% cream with applicator 1 application, Vaginally, Daily at bedtime, # 45 Gm, 0 Refills, Maintenance, 11/05/18 16:29:57 EST,Cream Start Date: 11/05/18 Stop Date: 11/12/18 Status: Ordered ferrous sulfate 325 mg oral tablet 1 tablet = 325 mg, By Mouth, Daily, # 90 tablet, 0 Refills Start Date: 04/15/09 Stop Date: 05/15/09 Status: Ordered ibuprofen 600 mg oral tablet 1 tablet = 600 mg, By Mouth, Every 6 hours, PRN Pain, # 40 tablet, 0 Refills Start Date: 04/15/09 Stop Date: 04/29/09 Status: Ordered ibuprofen 600 mg oral tablet 1 tablet = 600 mg, By Mouth, Every 6 hours, PRN Pain, # 40 tablet, 0 Refills Start Date: 04/15/09 Stop Date: 04/29/09 Status: Ordered ibuprofen 600 mg oral tablet 600 mg, 1, tablet, By Mouth, Every 6 hours, # 40 tablet, Refills 0, Tot. Refills 0, Maintenance, 11/18/18 17:48:29 EST, Print Requisition Start Date: 11/18/18 Status: Ordered Implanon 68 mg subcutaneous implant = 68 mg, Subcutaneous Infusion, Once, # 1 application, 0 Refills Start Date: 04/15/09 Status: Ordered metronidazole topical 0.75% gel with applicator 1 applicator, Vaginally, Daily at bedtime, # 70 Gm, 0 Refills, Maintenance, 11/05/18 16:23:11 EST, Gel Start Date: 11/05/18 Stop Date: 11/10/18 Status: Ordered nifedipine 10 mg oral capsule 1 capsule = 10 mg, By Mouth, Every 6 hours, # 100 capsule, 0 Refills, Maintenance, Capsule Start Date: 01/06/12 Status: Ordered Percocet-5/325 325 mg-5 mg oral tablet 1 tablet, By Mouth, Every 4 hours, PRN Pain, # 12 Doses, 0 Refills Start Date: 04/15/09 Stop Date: 04/22/09 Status: Ordered Multivitamin Tablet 1, tablet, By Mouth, Daily, Refills 0, 02/21/09 5:08:25 Start Date: 02/21/09 Stop Date: 03/22/09 Status: Ordered Problem List Condition Effective Dates Status Health Status Inform ant Last pap smear in [facility] 4 ASCUS(Confirmed) Active Vital Signs Most recent to oldest [Reference Range]: 1 Height 158 cm (06/06/20 5:23 AM) Weight 60 kg (06/06/20 5:23 AM) Oxygen Saturation [94-100 %] 100 % (06/06/20 5:23 AM) Pulse Rate [55-90 bpm] 104 bpm *H* (06/06/20 5:23 AM) Blood Pressure [90-138/55-84 mm Hg] 119/ 73mm Hg (06/06/20 5:23 AM) Respiratory Rate [16-30 br/min] 17 br/mi n (06/06/20 5:23 AM) Temperature [96.8-100.4 DegF] 98.0 DegF (06/06/20:23 AM) Mode of Delivery (Oxygen) Room air (06/06/20 5:23 AM) Blood pressure sites Arm, left (06/06/20 5:23 AM) Temperature Route Oral (06/06/20 5:23 AM) Dry Weight 60 kg (06/06/20 5:23 AM) Weight Obtained Via Patient/family state d (06/06/20 5:23 AM) Dry Weight Obtained Via Patient/family s tated (06/06/20 5:23 AM)
--- OUTSIDE RECORDS SUMMARY | 2023-09-12 20:52 | XMS_ITS | Continuity of Care Document ---
Author Name Unknown Organization [facility] ter Address [address] [place] [address]- Care Team Providers Care Hydraulic Rubbish Compactor Mechanic Name Role Phone Andrew STONE, Milind Primary Care Physician [phone] [place] [facility] [place](s): 04/14/21 - 06/20/[address] [address] Attending Physician: Gema Barr MD Referring Physician: Akua Tobar DO Allergies, Adverse Reactions, Alerts Substance Reaction [...] give 325mg per patient preference and re-dose [id number] within 4 hours, if needed. Patient should [...] Refills, Maintenance, 02/06/21 9:12:00 EDT, Capsule, [facility]/pharmacy #[id number], Partial fill upon patient request if the prescription is for a schedule II opioid dr... Start Date: 02/06/21 Status: Ordered Dulcolax 10 mg rectal suppository 1 supp = 10 mg, Rectally, Daily, PRN as needed for constipation, # 10 supp, 0 Refills, Maintenance,05/14/21 0:20:00 EDT, Suppository, [facility], Partial fill upon patient request if the prescription is for a schedule II opioid dr... Start Date: 05/14/21 Status: Ordered ferrous sulfate 325 mg oral enteric coated tablet 325 mg, 1, tablet, By Mouth, Daily, # 90 tablet, Refills 2, Tot. Refills 2, Maintenance, 02/06/21 9:12:00 EDT, Route to Pharmacy Electronically, [facility]/pharmacy #[id number], Partial fill upon patient request if the prescription is for a schedule II opioid drug... Start Date: 02/06/21 Status: Ordered ibuprofen 800 mg oral tablet 800 mg, 1, tablet, By Mouth, Every 8 hours, # 30 tablet, Refills 0, Tot. Refills 0, Maintenance, 05/12/21 6:38:00 EDT, Route to Pharmacy Electronically, [facility], Partial fill upon [...] 1 Refills, Maintenance, 02/24/21 12:06:00 EDT, Tablet, [facility], Partial fill upon patient request if the prescription is for a schedule II opioid drug., 158, cm, 02/24/21 10:58:00... Start Date: 02/24/21 Status: Ordered lidocaine 1.8% topical film 1 patch, Topically, Daily, leave on up to 12 hours, # 8 each, 0 Refills, Maintenance, 05/14/21 0:25:00 EDT, Film, [facility], Partial fill upon patient request if the prescriptionis for a schedule II opioid drug., 1 patch Topicall... Start Date: 05/14/21 Status: Ordered MiraLax oral powder for reconstitution = 17 Gm, By Mouth, Daily, dissolve in water before taking, # 255 Gm, 0 Refills, Maintenance, 05/12/21 6:39:00 EDT, REC Powder, [facility], Partial fill upon patient request if theprescription is for a schedule II opioid drug., 17... Start Date: 05/12/21 Status: Ordered MiraLax oral powder for reconstitution = 17 Gm, By Mouth, Daily, dissolve in water before taking, # 255 Gm, 0 Refills, Maintenance, 12/20/20 16:30:00 EST, REC Powder, [facility], Partial fill upon patient request if the prescription is for a schedule II opioid drug., 17... Start Date: 12/20/20 Status: Ordered oxyCODONE 5 mg oral tablet 5 mg, 1, tablet, By Mouth, Every 6 hours, PRN, # 15 tablet, Refills 0, Tot. Refills 0, Maintenance,as needed for pain, 05/12/21 6:39:00 EDT, Route to Pharmacy Electronically, [facility], Partial fill upon [...] 0 Refills, Maintenance, 05/12/21 6:39:00 EDT, Tablet, [facility], Partial fill upon patient request if theprescription is for a schedule II opioid drug., 158... Start Date: 05/12/21 Status: Ordered simethicone 80 mg oral tablet 1 tablet = 80 mg, Chew, 3 times a day after meals, PRN as needed for gas, # 60 tablet, 0 Refills, Maintenance, 05/12/21 6:39:00 EDT, Tablet, [facility], Partial fill upon [...] 05/12/21 6:38:00 EDT, Route to Pharmacy Electronically, [facility],Partial fill upon patient request if the [...]
--- OUTSIDE RECORDS SUMMARY | 2023-09-12 20:52 | XMS_ITS | Continuity of Care Document ---
Author Name Unknown Organization [facility] Address [address] [place] [id number]- Care Team Providers Care Wildfire Prevention Specialist Name Role Phone Andrew STONE, Milind Primary Care Physician Encounter [facility] Date(s): 05/13/23 - 06/24/[address] [address]- Attending Physician: Not on Staff, Attending MD [...] give 325mg per patient preference and re-dose [id number] within 4 hours, if needed. Patient should [...] 3 Refills, Maintenance, 02/06/21 9:12:00 EDT, Capsule, [facility]/pharmacy #[id number], Partial fill upon patient request if the prescription is for a schedule II opioid dr... Start Date: 02/06/21 Status: Ordered Dulcolax 10 mg rectal suppository 1 supp = 10 mg, Rectally, Daily, PRN as needed for constipation, # 10 supp, 0 Refills, Maintenance,05/14/21 0:20:00 EDT, Suppository, [facility], Partial fill upon patient request if the prescription is for a schedule II opioid dr... Start Date: 05/14/21 Status: Ordered ferrous sulfate 325 mg oral enteric coated tablet 325 mg, 1, tablet, By Mouth, Daily, # 90 tablet, Refills 2, Tot. Refills 2, Maintenance, 02/06/21 9:12:00 EDT, Route to Pharmacy Electronically, [facility]/pharmacy #[id number], Partial fill upon patient request if the prescription is for a schedule II opioid drug... Start Date: 02/06/21 Status: Ordered ibuprofen 800 mg oral tablet 800 mg, 1, tablet, By Mouth, Every 8 hours, # 30 tablet, Refills 0, Tot. Refills 0, Maintenance, 05/12/21 6:38:00 EDT, Route to Pharmacy Electronically, [facility], Partial fill upon patient request [...] 1 Refills, Maintenance, 02/24/21 12:06:00 EDT, Tablet, [facility], Partial fill upon patient request if the prescription is for a schedule II opioid drug., 158, cm, 02/24/21 10:58:00... Start Date: 02/24/21 Status: Ordered lidocaine 1.8% topical film 1 patch, Topically, Daily, leave on up to 12 hours, # 8 each, 0 Refills, Maintenance, 05/14/21 0:25:00 EDT, Film, [facility], Partial fill upon patient request if the prescriptionis for a schedule II opioid drug., 1 patch Topicall... Start Date: 05/14/21 Status: Ordered MiraLax oral powder for reconstitution = 17 Gm, By Mouth, Daily, dissolve in water before taking, # 255 Gm, 0 Refills, Maintenance, 05/12/21 6:39:00 EDT, REC Powder, [facility], Partial fill upon patient request if theprescription is for a schedule II opioid drug., 17... Start Date: 05/12/21 Status: Ordered MiraLax oral powder for reconstitution = 17 Gm, By Mouth, Daily, dissolve in water before taking, # 255 Gm, 0 Refills, Maintenance, 12/20/20 16:30:00 EST, REC Powder, [facility], Partial fill upon patient request if the prescription is for a schedule II opioid drug., 17... Start Date: 12/20/20 Status: Ordered oxyCODONE 5 mg oral tablet 5 mg, 1, tablet, By Mouth, Every 6 hours, PRN, # 15 tablet, Refills 0, Tot. Refills 0, Maintenance,as needed for pain, 05/12/21 6:39:00 EDT, Route to Pharmacy Electronically, [facility], Partial fill upon patient request if the pr... Start Date: 05/12/21 Status: Ordered Multivitamins with Folic Acid 0.8 mg oral capsule 1 capsule, By Mouth, Daily, # 90 capsule, 3 Refills, Maintenance, 02/06/21 9:12:00 EDT, Capsule, [id number], Please sub for any vit covered by insurance if needed, 1 capsule By MouthDaily, 158, cm, 01/16/21 16:22:00 EDT, Height, 66.1... Start Date: 02/06/21 Status: Ordered senna - oral tablet 2 tablet, By Mouth, Daily at bedtime, PRN for constipation, # 60 tablet, 0 Refills, Maintenance, 05/12/21 6:39:00 EDT, Tablet, [facility], Partial fill upon patient request if theprescription is for a schedule II opioid drug., 158... Start Date: 05/12/21 Status: Ordered simethicone 80 mg oral tablet 1 tablet = 80 mg, Chew, 3 times a day after meals, PRN as needed for gas, # 60 tablet, 0 Refills, Maintenance, 05/12/21 6:39:00 EDT, Tablet, [facility], Partial fill upon patient request [...] 05/12/21 6:38:00 EDT, Route to Pharmacy Electronically, [facility],Partial fill upon patient request if the prescripti... Start Date: 05/12/21 Status: Ordered Problem List Condition Confirmation Course Effective Dates Status H ealth Status Informant Abnormal Pap smear of cervix Confirmed Active H/O Anemia Confirmed Active Asthma Confirmed Active Bipolar disease, chronic 1 Confirmed Active ASCUS with positive high risk human papilloma virus (HPV) Confirmed 07/18/20 Active Constipation Confirmed Active H/O (PTSD) 2 [...] time - [facility] services declined. 2Pt reports during telehealth [...] time - [facility] services declined. 7Problem added by Discern Expert Social History Social History Type Response Smoking Status 10 or more cigarette s (1/2 pack or more)/day in last 30 days entered on: 02/13/21 Sex Patient Care team information Care Team Personnel Name: Milind Morales MD Position: [facility] Outreach Member Role: PCP Address: Address: [address] [place] [address]- Care Team Related Persons Name: TEOFILO RODRÍGUEZ Address: [id number] Address: [address] [place] [address] [place] Name: NO ONE, PT PATIENT Name: FRANSISCO RAY Address: home [address] [place] [address] Name: JUNIOR FLOR Address: home [address] [place] [address] Name: PETTY HUMPHREYS Address: home [address] [place] [address]
--- OUTSIDE RECORDS SUMMARY | 2023-09-12 20:52 | XMS_ITS | Continuity of Care Document ---
Author Name Unknown Organization [facility] Address [address] [place] [address]- Care Team Providers Care Tube Bending Machine Operator Name Role Phone Andrew STONE, Milind Primary Care Physician Encounter [facility] Date(s): 02/06/21 - 03/08/[address] [address]- Allergies, Adverse Reactions, Alerts Substance Reaction Severity [...] Refills, Maintenance, 02/06/21 9:12:00 EDT, Capsule, [facility]/pharmacy #[id number], Partial fill upon patient request if the prescription is for a schedule II opioid dr... Start Date: 02/06/21 Status: Ordered ferrous sulfate 325 mg oral enteric coated tablet 325 mg, 1, tablet, By Mouth, Daily, # 90 tablet, Refills 2, Tot. Refills 2, Maintenance, 02/06/21 9:12:00 EDT, Route to Pharmacy Electronically, [facility]/pharmacy #[id number], Partial fill upon patient request if the prescription is for a schedule II opioid drug... Start Date: 02/06/21 Status: Ordered HYDROXYprogesterone 250 mg/mL intramuscular solution 1 mL = 250 mg, Intramuscular, Every week, # 4 each, 5 Refills, Soft Stop, 12/20/20 11:48:00 EST, Solution, [facility], Partial fill upon patient request if the prescription is for a schedule II opioid drug., tamra Alvarez, 12/20/20 8:04:00... Start Date: 12/20/20 Stop Date: 04/09/23 Status: Ordered levothyroxine 0.05 mg oral tablet 1 tablet = 50 mcg, By Mouth, Daily, # 90 tablet, 1 Refills, Maintenance, 02/24/21 12:06:00 EDT, Tablet, [facility], Partial fill upon patient request if the prescription is for a schedule II opioid drug., tamra Alvarez, 02/24/21 10:58:00... Start Date: 02/24/21 Status: Ordered levothyroxine 50 mcg (0.05 mg) oral capsule 1 capsule = 50 mcg, By Mouth, Daily, # 90 capsule, 1 Refills, Maintenance, 02/16/21 12:45:00 EDT, Capsule, [facility]/pharmacy #[id number], Partial fill upon patient request if the prescription is for a schedule II opioid drug., tamra Alvarez, 02/14/21 9:09:00 EDT, Heig... Start Date: 02/16/21 Status: Ordered MiraLax oral powder for reconstitution = 17 Gm, By Mouth, Daily, dissolve in water before taking, # 255 Gm, 0 Refills, Maintenance, 12/20/20 16:30:00 EST, REC Powder, [facility], Partial fill upon patient request [...] want to at this time - [facility] services declined. 2Pt reports during telehealth OBI [...] want to at this time - [facility] services declined. Social History Social History Type Response Smoking Status 10 or more cigarette s (1/2 pack or more)/day in last 30 days entered on: 02/13/21 Sex
--- OUTSIDE RECORDS SUMMARY | 2023-09-12 20:52 | XMS_ITS | Continuity of Care Document ---
Author Name Unknown Organization [facility] Address [address] [place] [address]- Care Team Providers Care Mixing Picker Tender Name Role Phone Not on Staff, PCP Primary Care Physician Unavail able Encounter [facility] [place] Date(s): 11/21/20 - 01/18/[address] [address]- Attending Physician: Naima Diana MD Admitting Physician: Naima Diana MD Allergies, Adverse Reactions, Alerts Substance Reaction [...] 1 Refills, Maintenance, 01/07/21 10:30:00 EDT, Capsule, [facility]/pharmacy #[id number], Partial fill upon patient request if the prescription is for a schedule II opioid dr... Start Date: 01/07/21 Status: Ordered docusate sodium 100 mg oral capsule 1 capsule = 100 mg, By Mouth, 2 times a day, PRN as needed for constipation, # 20 capsule, 0 Refills, Maintenance, 12/20/20 16:31:00 EST, Capsule, [facility], Partial fill upon patient request if the prescription is for a schedule... Start Date: 12/20/20 Status: Ordered ferrous sulfate 325 mg oral enteric coated tablet 325 mg, 1, tablet, By Mouth, Daily, # 90 tablet, Refills 0, Tot. Refills 0, Maintenance, 12/25/20 10:13:00 EST, Route to Pharmacy Electronically, [facility]/pharmacy #[id number], Partial fill upon patient requestif the prescription is for a schedule II opioid drake... Start Date: 12/25/20 Status: Ordered HYDROXYprogesterone 250 mg/mL intramuscular solution 1 mL = 250 mg, Intramuscular, Every week, # 4 each, 5 Refills, Soft Stop, 12/20/20 11:48:00 EST, Solution, [facility], Partial fill upon patient request if the prescription is for a schedule II opioid drug., 158, cm, 12/20/20 8:04:00... Start Date: 12/20/20 Stop Date: 04/09/23 Status: Ordered metronidazole topical 0.75% gel with applicator 1 application, Vaginally, Daily at bedtime, # 70 Gm, 0 Refills, Soft Stop, 12/20/20 16:29:00 EST, Gel, [facility], Partial fill upon patient request if the prescription is for a schedule II opioid drug., 1 application Vaginally Vijaya... Start Date: 12/20/20 Stop Date: 12/27/20 Status: Ordered MiraLax oral powder for reconstitution = 17 Gm, By Mouth, Daily, dissolve in water before taking, # 255 Gm, 0 Refills, Maintenance, 12/22/20 16:29:00 EST, REC Powder, [facility]/pharmacy #[id number], Partial fill upon patient request if the prescription is for a schedule II opioid drug., 17 Gm By Mouth... Start Date: 12/22/20 Status: Ordered MiraLax oral powder for reconstitution = 17 Gm, By Mouth, Daily, dissolve in water before taking, # 255 Gm, 0 Refills, Maintenance, 12/20/20 16:30:00 EST, REC Powder, [facility], Partial fill upon patient request if [...] 1 Refills, Maintenance, 12/20/20 16:28:00 EST, Tablet, [facility], Partial fill upon patient request if [...]
--- OUTSIDE RECORDS SUMMARY | 2023-09-12 20:52 | XMS_ITS | Continuity of Care Document ---
Author Name Unknown Organization [facility] Address [address] [place] [address]- Care Team Providers Care Offal Roller Name Role Phone Not on Staff, PCP Primary Care Physician Unavail able Encounter [facility] Date(s): 12/22/20 - 12/29/[address] [address]- Encounter Diagnosis Diseases of the digestive system complicating , second trimester(Final) - Discharge Disposition: A-D/C Home Attending Physician: Jerad Ellison MD Admitting Physician: Jerad Ellison MD Allergies, Adverse Reactions, Alerts Substance Reaction [...] 0 Refills, Maintenance, 12/22/20 16:29:00 EST, Capsule, [facility]/pharmacy #[id number], Partial fill upon patient request if the prescription is for a schedule II opioid dr... Start Date: 12/22/20 Status: Ordered docusate sodium 100 mg oral capsule 1 capsule = 100 mg, By Mouth, 2 times a day, PRN as needed for constipation, # 20 capsule, 0 Refills, Maintenance, 12/20/20 16:31:00 EST, Capsule, [facility], Partial fill upon patient request if the prescription is for a schedule... Start Date: 12/20/20 Status: Ordered ferrous sulfate 325 mg oral enteric coated tablet 325 mg, 1, tablet, By Mouth, Daily, # 90 tablet, Refills 0, Tot. Refills 0, Maintenance, 12/25/20 10:13:00 EST, Route to Pharmacy Electronically, [facility]/pharmacy #[id number], Partial fill upon patient requestif the prescription is for a schedule II opioid drake... Start Date: 12/25/20 Status: Ordered HYDROXYprogesterone 250 mg/mL intramuscular solution 1 mL = 250 mg, Intramuscular, Every week, # 4 each, 5 Refills, Soft Stop, 12/20/20 11:48:00 EST, Solution, [facility], Partial fill upon patient request if the prescription is for a schedule II opioid drug., 158, cm, 12/20/20 8:04:00... Start Date: 12/20/20 Stop Date: 04/09/23 Status: Ordered metronidazole topical 0.75% gel with applicator 1 application, Vaginally, Daily at bedtime, # 70 Gm, 0 Refills, Soft Stop, 12/20/20 16:29:00 EST, Gel, [facility], Partial fill upon patient request if the prescription is for a schedule II opioid drug., 1 application Vaginally Vijaya... Start Date: 12/20/20 Stop Date: 12/27/20 Status: Ordered MiraLax oral powder for reconstitution = 17 Gm, By Mouth, Daily, dissolve in water before taking, # 255 Gm, 0 Refills, Maintenance, 12/22/20 16:29:00 EST, REC Powder, [facility]/pharmacy #[id number], Partial fill upon patient request if the prescription is for a schedule II opioid drug., 17 Gm By Mouth... Start Date: 12/22/20 Status: Ordered MiraLax oral powder for reconstitution = 17 Gm, By Mouth, Daily, dissolve in water before taking, # 255 Gm, 0 Refills, Maintenance, 12/20/20 16:30:00 EST, REC Powder, [facility], Partial fill upon patient request [...] 1 Refills, Maintenance, 12/20/20 16:28:00 EST, Tablet, [facility], Partial fill upon patient request [...] oldest [Reference Range]: 1 Height 158 cm (12/22/20 4:00 PM) Weight 66.1 kg (12/22/20 4:00 PM) Oxygen Saturation [94-100 %] 99 % (12/22/20 4:00 PM) Pulse Rate [55-90 bpm] 77 bpm (12/22/20 4:00 PM) Body Mass Index [18.5-24.99] 26.48 *H* (12/22/20 4:00 PM) Blood Pressure [90-138/55-84 mm Hg] 96/6 1mm Hg (12/22/20 4:00 PM) Respiratory Rate [16-30 br/min] 18 br/mi n (12/22/20 4:00 PM) Temperature [96.8-100.4 DegF] 98.6 DegF (12/22/20 4:00 PM) Temperature Route Oral (12/22/20 4:00 PM) Dry Weight 66.1 kg (12/22/20 4:00 PM) Social History Social History Type Response Tobacco Use: 4 or less cigar ettes(less than 1/4 pack)/day in last 30 days. Sex
--- OUTSIDE RECORDS SUMMARY | 2023-09-12 20:52 | XMS_ITS | Continuity of Care Document ---
Author Name Unknown Organization [facility] Address [address] [place] [address]- Care Team Providers Care Professional Application Designer Name Role Phone Andrew STONE, Milind Primary Care Physician [place] [facility](s[place] 04/11/21 - 06/15/[address] [address]- Attending Physician: Not on Staff, Attending MD [...] give 325mg per patient preference and re-dose [id number] within 4 hours, if needed. Patient should [...] 3 Refills, Maintenance, 02/06/21 9:12:00 EDT, Capsule, [facility]/pharmacy #[id number], Partial fill upon patient request if the prescription is for a schedule II opioid dr... Start Date: 02/06/21 Status: Ordered Dulcolax 10 mg rectal suppository 1 supp = 10 mg, Rectally, Daily, PRN as needed for constipation, # 10 supp, 0 Refills, Maintenance,05/14/21 0:20:00 EDT, Suppository, [facility], Partial fill upon patient request if the prescription is for a schedule II opioid dr... Start Date: 05/14/21 Status: Ordered ferrous sulfate 325 mg oral enteric coated tablet 325 mg, 1, tablet, By Mouth, Daily, # 90 tablet, Refills 2, Tot. Refills 2, Maintenance, 02/06/21 9:12:00 EDT, Route to Pharmacy Electronically, [facility]/pharmacy #[id number], Partial fill upon patient request if the prescription is for a schedule II opioid drug... Start Date: 02/06/21 Status: Ordered ibuprofen 800 mg oral tablet 800 mg, 1, tablet, By Mouth, Every 8 hours, # 30 tablet, Refills 0, Tot. Refills 0, Maintenance, 05/12/21 6:38:00 EDT, Route to Pharmacy Electronically, [facility], Partial fill upon patient request [...] 1 Refills, Maintenance, 02/24/21 12:06:00 EDT, Tablet, [facility], Partial fill upon patient request if the prescription is for a schedule II opioid drug., 158, cm, 02/24/21 10:58:00... Start Date: 02/24/21 Status: Ordered lidocaine 1.8% topical film 1 patch, Topically, Daily, leave on up to 12 hours, # 8 each, 0 Refills, Maintenance, 05/14/21 0:25:00 EDT, Film, [facility], Partial fill upon patient request if the prescriptionis for a schedule II opioid drug., 1 patch Topicall... Start Date: 05/14/21 Status: Ordered MiraLax oral powder for reconstitution = 17 Gm, By Mouth, Daily, dissolve in water before taking, # 255 Gm, 0 Refills, Maintenance, 05/12/21 6:39:00 EDT, REC Powder, [facility], Partial fill upon patient request if theprescription is for a schedule II opioid drug., 17... Start Date: 05/12/21 Status: Ordered MiraLax oral powder for reconstitution = 17 Gm, By Mouth, Daily, dissolve in water before taking, # 255 Gm, 0 Refills, Maintenance, 12/20/20 16:30:00 EST, REC Powder, [facility], Partial fill upon patient request if the prescription is for a schedule II opioid drug., 17... Start Date: 12/20/20 Status: Ordered oxyCODONE 5 mg oral tablet 5 mg, 1, tablet, By Mouth, Every 6 hours, PRN, # 15 tablet, Refills 0, Tot. Refills 0, Maintenance,as needed for pain, 05/12/21 6:39:00 EDT, Route to Pharmacy Electronically, [facility], Partial fill upon patient request [...] 0 Refills, Maintenance, 05/12/21 6:39:00 EDT, Tablet, [facility], Partial fill upon patient request if theprescription is for a schedule II opioid drug., 158... Start Date: 05/12/21 Status: Ordered simethicone 80 mg oral tablet 1 tablet = 80 mg, Chew, 3 times a day after meals, PRN as needed for gas, # 60 tablet, 0 Refills, Maintenance, 05/12/21 6:39:00 EDT, Tablet, [facility], Partial fill upon patient request [...] 05/12/21 6:38:00 EDT, Route to Pharmacy Electronically, [facility],Partial fill upon patient request if [...]
--- OUTSIDE RECORDS SUMMARY | 2023-09-12 20:52 | XMS_ITS | Continuity of Care Document ---
Author Name Unknown Organization [facility] Address [address] [place] [address]- Care Team Providers Care Washer Repairman Name Role Phone Andrew STONE, Milind Primary Care Physician [phone] Encounter [facility] Date(s): 04/11/21 - 06/29/[address] [address]- Attending Physician: Not on Staff, Attending MD [...] give 325mg per patient preference and re-dose [id number] within 4 hours, if needed. Patient should [...] 3 Refills, Maintenance, 02/06/21 9:12:00 EDT, Capsule, [facility]/pharmacy #[id number], Partial fill upon patient request if the prescription is for a schedule II opioid dr... Start Date: 02/06/21 Status: Ordered Dulcolax 10 mg rectal suppository 1 supp = 10 mg, Rectally, Daily, PRN as needed for constipation, # 10 supp, 0 Refills, Maintenance,05/14/21 0:20:00 EDT, Suppository, [facility], Partial fill upon patient request if the prescription is for a schedule II opioid dr... Start Date: 05/14/21 Status: Ordered ferrous sulfate 325 mg oral enteric coated tablet 325 mg, 1, tablet, By Mouth, Daily, # 90 tablet, Refills 2, Tot. Refills 2, Maintenance, 02/06/21 9:12:00 EDT, Route to Pharmacy Electronically, [facility]/pharmacy #[id number], Partial fill upon patient request if the prescription is for a schedule II opioid drug... Start Date: 02/06/21 Status: Ordered ibuprofen 800 mg oral tablet 800 mg, 1, tablet, By Mouth, Every 8 hours, # 30 tablet, Refills 0, Tot. Refills 0, Maintenance, 05/12/21 6:38:00 EDT, Route to Pharmacy Electronically, [facility], Partial fill upon patient request [...] 1 Refills, Maintenance, 02/24/21 12:06:00 EDT, Tablet, [facility], Partial fill upon patient request if the prescription is for a schedule II opioid drug., 158, cm, 02/24/21 10:58:00... Start Date: 02/24/21 Status: Ordered lidocaine 1.8% topical film 1 patch, Topically, Daily, leave on up to 12 hours, # 8 each, 0 Refills, Maintenance, 05/14/21 0:25:00 EDT, Film, [facility], Partial fill upon patient request if the prescriptionis for a schedule II opioid drug., 1 patch Topicall... Start Date: 05/14/21 Status: Ordered MiraLax oral powder for reconstitution = 17 Gm, By Mouth, Daily, dissolve in water before taking, # 255 Gm, 0 Refills, Maintenance, 05/12/21 6:39:00 EDT, REC Powder, [facility], Partial fill upon patient request if theprescription is for a schedule II opioid drug., 17... Start Date: 05/12/21 Status: Ordered MiraLax oral powder for reconstitution = 17 Gm, By Mouth, Daily, dissolve in water before taking, # 255 Gm, 0 Refills, Maintenance, 12/20/20 16:30:00 EST, REC Powder, [facility], Partial fill upon patient request if the prescription is for a schedule II opioid drug., 17... Start Date: 12/20/20 Status: Ordered oxyCODONE 5 mg oral tablet 5 mg, 1, tablet, By Mouth, Every 6 hours, PRN, # 15 tablet, Refills 0, Tot. Refills 0, Maintenance,as needed for pain, 05/12/21 6:39:00 EDT, Route to Pharmacy Electronically, [facility], Partial fill upon patient request [...] 0 Refills, Maintenance, 05/12/21 6:39:00 EDT, Tablet, [facility], Partial fill upon patient request if theprescription is for a schedule II opioid drug., 158... Start Date: 05/12/21 Status: Ordered simethicone 80 mg oral tablet 1 tablet = 80 mg, Chew, 3 times a day after meals, PRN as needed for gas, # 60 tablet, 0 Refills, Maintenance, 05/12/21 6:39:00 EDT, Tablet, [facility], Partial fill upon patient request [...] 05/12/21 6:38:00 EDT, Route to Pharmacy Electronically, [facility],Partial fill upon patient request if [...]
--- OUTSIDE RECORDS SUMMARY | 2023-09-12 20:52 | XMS_ITS | Continuity of Care Document ---
Author Name Unknown Organization [facility] Address [address] [place] [id number]- Care Team Providers Care Rf Technician Name Role Phone Andrew STONE, Milind Primary Care Physician Encounter [facility] [place] Date(s): 02/27/21 - 03/29/[address] [address]- Allergies, Adverse Reactions, Alerts Substance Reaction Severity [...] Refills, Maintenance, 02/06/21 9:12:00 EDT, Capsule, [id number], Partial fill upon patient request if the prescription is for a schedule II opioid . Start Date: 02/06/21 Status: Ordered ferrous sulfate 325 mg oral enteric coated tablet 325 mg, 1, tablet, By Mouth, Daily, # 90 tablet, Refills 2, Tot. Refills 2, Maintenance, 02/06/21 9:12:00 EDT, Route to Pharmacy Electronically, [facility]/pharmacy #[id number], Partial fill upon patient request if the [...] Refills, Soft Stop, 12/20/20 11:48:00 EST, Solution, [facility], Partial fill upon patient request if the prescription is for a schedule II opioid drug., 158, cm, 12/20/20 8:04:00... Start Date: 12/20/20 Stop Date: 04/09/23 Status: Ordered levothyroxine 0.05 mg oral tablet 1 tablet = 50 mcg, By Mouth, Daily, # 90 tablet, 1 Refills, Maintenance, 02/24/21 12:06:00 EDT, Tablet, [facility], Partial fill upon patient request if the prescription is for a schedule II opioid drug., 158, cm, 02/24/21 10:58:00... Start Date: 02/24/21 Status: Ordered levothyroxine 50 mcg (0.05 mg) oral capsule 1 capsule = 50 mcg, By Mouth, Daily, # 90 capsule, 1 Refills, Maintenance, 02/16/21 12:45:00 EDT, Capsule, [facility]/pharmacy #[id number], Partial fill upon patient request if the prescription is for a schedule II opioid drug., 158, tamra, 02/14/21 9:09:00 EDT, Heig... Start Date: 02/16/21 Status: Ordered loratadine 10 mg oral tablet 1, tablet, By Mouth, Daily, # 30 tablet, Refills 1, Tot. Refills 0, Maintenance, 03/10/21 6:57:00 EDT, Route to Pharmacy Electronically, [facility] [id number], tamra Alvarez, 03/03/21 11:11:00 EDT, Height, 70.5,kg, 02/13/21 12:38:00 EDT, Dry Weight Start Date: 03/10/21 Status: Ordered MiraLax oral powder for reconstitution = 17 Gm, By Mouth, Daily, dissolve in water before taking, # 255 Gm, 0 Refills, Maintenance, 12/20/20 16:30:00 EST, REC Powder, [facility], Partial fill upon patient request if the prescription is for a schedule II opioid drug., 17... Start Date: 12/20/20 Status: Ordered Multivitamins with Folic Acid 0.8 mg oral capsule 1 capsule, By Mouth, Daily, # 90 capsule, 3 Refills, Maintenance, 02/06/21 9:12:00 EDT, Capsule, [id number], Please sub for any vit covered by insurance if needed, 1 capsule By MouthAura, tamra Alvarez, 01/16/21 16:22:00 EDT, Height, 66.1... Start Date: [...]
--- OUTSIDE RECORDS SUMMARY | 2023-09-12 20:52 | XMS_ITS | Continuity of Care Document ---
Author Name Unknown Organization [facility] Address [address] [place] [address]- Care Team Providers Care Quality Improvement Specialist Name Role Phone Andrew TSONE, Milind Primary Care Physician Encounter [facility] [place] Date(s): 06/17/23 - 08/25/[address] [address]- Attending Physician: Not on Staff, Attending MD Allergies, Adverse Reactions, Alerts Substance Reaction Severity Status codeine Active amoxicillin Active Adhesive Bandage Active Dilaudid Hives C/O: [...] give 325mg per patient preference and re-dose [id number] within 4 hours, if needed. Patient should [...] 3 Refills, Maintenance, 02/06/21 9:12:00 EDT, Capsule, [facility]/pharmacy #[id number], Partial fill upon patient request if the prescription is for a schedule II opioid dr... Start Date: 02/06/21 Status: Ordered Dulcolax 10 mg rectal suppository 1 supp = 10 mg, Rectally, Daily, PRN as needed for constipation, # 10 supp, 0 Refills, Maintenance,05/14/21 0:20:00 EDT, Suppository, [facility], Partial fill upon patient request if the prescription is for a schedule II opioid dr... Start Date: 05/14/21 Status: Ordered ferrous sulfate 325 mg oral enteric coated tablet 325 mg, 1, tablet, By Mouth, Daily, # 90 tablet, Refills 2, Tot. Refills 2, Maintenance, 02/06/21 9:12:00 EDT, Route to Pharmacy Electronically, [facility]/pharmacy #[id number], Partial fill upon patient request if the prescription is for a schedule II opioid drug... Start Date: 02/06/21 Status: Ordered ibuprofen 800 mg oral tablet 800 mg, 1, tablet, By Mouth, Every 8 hours, # 30 tablet, Refills 0, Tot. Refills 0, Maintenance, 05/12/21 6:38:00 EDT, Route to Pharmacy Electronically, [facility], Partial fill upon patient request [...] 1 Refills, Maintenance, 02/24/21 12:06:00 EDT, Tablet, [facility], Partial fill upon patient request if the prescription is for a schedule II opioid drug., 158, cm, 02/24/21 10:58:00... Start Date: 02/24/21 Status: Ordered lidocaine 1.8% topical film 1 patch, Topically, Daily, leave on up to 12 hours, # 8 each, 0 Refills, Maintenance, 05/14/21 0:25:00 EDT, Film, [facility], Partial fill upon patient request if the prescriptionis for a schedule II opioid drug., 1 patch Topicall... Start Date: 05/14/21 Status: Ordered MiraLax oral powder for reconstitution = 17 Gm, By Mouth, Daily, dissolve in water before taking, # 255 Gm, 0 Refills, Maintenance, 05/12/21 6:39:00 EDT, REC Powder, [facility], Partial fill upon patient request if theprescription is for a schedule II opioid drug., 17... Start Date: 05/12/21 Status: Ordered MiraLax oral powder for reconstitution = 17 Gm, By Mouth, Daily, dissolve in water before taking, # 255 Gm, 0 Refills, Maintenance, 12/20/20 16:30:00 EST, REC Powder, [facility], Partial fill upon patient request if the prescription is for a schedule II opioid drug., 17... Start Date: 12/20/20 Status: Ordered oxyCODONE 5 mg oral tablet 5 mg, 1, tablet, By Mouth, Every 6 hours, PRN, # 15 tablet, Refills 0, Tot. Refills 0, Maintenance,as needed for pain, 05/12/21 6:39:00 EDT, Route to Pharmacy Electronically, [facility], Partial fill upon patient request if the pr... Start Date: 05/12/21 Status: Ordered Multivitamins with Folic Acid 0.8 mg oral capsule 1 capsule, By Mouth, Daily, # 90 capsule, 3 Refills, Maintenance, 02/06/21 9:12:00 EDT, [facility]apsule, [id number], Please sub for any vit covered by insurance if needed, 1 capsule By MouthDaily, 158, cm, 01/16/21 16:22:00 EDT, Height, 66.1... Start Date: 02/06/21 Status: Ordered senna - oral tablet 2 tablet, By Mouth, Daily at bedtime, PRN for constipation, # 60 tablet, 0 Refills, Maintenance, 05/12/21 6:39:00 EDT, Tablet, [facility], Partial fill upon patient request if theprescription is for a schedule II opioid drug., 158... Start Date: 05/12/21 Status: Ordered simethicone 80 mg oral tablet 1 tablet = 80 mg, Chew, 3 times a day after meals, PRN as needed for gas, # 60 tablet, 0 Refills, Maintenance, 05/12/21 6:39:00 EDT, Tablet, [facility], Partial fill upon patient request [...] 05/12/21 6:38:00 EDT, Route to Pharmacy Electronically, [facility],Partial fill upon patient request if [...] want to at this time - [facility] services declined. 2Pt reports during telehealth OBI [...] want to at this time - [facility] services declined. 7Problem added by Discern Expert Social History Social History Type Response Smoking Status 10 or more cigarette s (1/2 pack or more)/day in last 30 days entered on: 02/13/21 Sex Patient Care team information Care Team Personnel Name: Milind Morales MD Position: [facility] Outreach Member Role: PCP Address: Address: [address] [place] [address]- Care Team Related Persons Name: TEOFILO RODRÍGUEZ Address: [address] Address: home [address] [place] [id number] [place] Name: NO ONE, PT PATIENT Name: FRANSISCO RAY Address: home [address] [place], [place] Name: JUNIOR FLOR Address: home [address] [place] [address] Name: PETTY HUMPHREYS Address: home [address] [place] [address]
--- OUTSIDE RECORDS SUMMARY | 2023-09-12 20:52 | XMS_ITS | Continuity of Care Document ---
Author Name Unknown Organization [facility] Address [address], [address], [address] [place] [address]- Care Team Providers Care Heeler Name Role Phone Milind Morales MD Primary Care Physician [phone] [place] [facility] [place]): [place]/21 [facility] [address], [address], [address] [place] [id number] Attending Physician: Marie Flores Admitting Physician: [...] Refills, Maintenance, 02/06/21 9:12:00 EDT, Capsule, [facility]/pharmacy #[id number], Partial fill upon patient request if the prescription is for a schedule II opioid dr... Start Date: 02/06/21 Status: Ordered ferrous sulfate 325 mg oral enteric coated tablet 325 mg, 1, tablet, By Mouth, Daily, # 90 tablet, Refills 2, Tot. Refills 2, Maintenance, 02/06/21 9:12:00 EDT, Route to Pharmacy Electronically, [facility]/pharmacy #[id number], Partial fill upon patient request if the prescription is for a schedule II opioid drug... Start Date: 02/06/21 Status: Ordered HYDROXYprogesterone 250 mg/mL intramuscular solution 1 mL = 250 mg, Intramuscular, Every week, # 4 each, 5 Refills, Soft Stop, 12/20/20 11:48:00 EST, Solution, [facility], Partial fill upon patient request if the prescription is for a schedule II opioid drug., tamra Alvarez, 12/20/20 8:04:00... Start Date: 12/20/20 Stop Date: 04/09/23 Status: Ordered levothyroxine 0.05 mg oral tablet 1 tablet = 50 mcg, By Mouth, Daily, # 90 tablet, 1 Refills, Maintenance, 02/24/21 12:06:00 EDT, Tablet, [facility], Partial fill upon patient request if the prescription is for a schedule II opioid drug., tamra Alvarez, 02/24/21 10:58:00... Start Date: 02/24/21 Status: Ordered levothyroxine 50 mcg (0.05 mg) oral capsule 1 capsule = 50 mcg, By Mouth, Daily, # 90 capsule, 1 Refills, Maintenance, 02/16/21 12:45:00 EDT, Capsule, [facility]/pharmacy #[id number], Partial fill upon patient request if the prescription is for a schedule II opioid drug., tamra Alvarez, 02/14/21 9:09:00 EDT, Heig... Start Date: 02/16/21 Status: Ordered MiraLax oral powder for reconstitution = 17 Gm, By Mouth, Daily, dissolve in water before taking, # 255 Gm, 0 Refills, Maintenance, 12/20/20 16:30:00 EST, REC Powder, [facility], Partial fill upon patient request if the prescription is for a schedule II opioid drug., 17... Start Date: 12/20/20 Status: Ordered Multivitamins with Folic Acid 0.8 mg oral capsule 1 capsule, By Mouth, Daily, # 90 capsule, 3 Refills, Maintenance, 02/06/21 9:12:00 EDT, Capsule, [id number], Please sub for any vit covered by insurance if needed, 1 capsule By MouthDaAtnonio galarza cm, 01/16/21 16:22:00 EDT, Height, 66.1... [...] she want to at this time - [facility] services declined. 3per pt's own history during [...]
--- OUTSIDE RECORDS SUMMARY | 2023-09-12 20:52 | XMS_ITS | Continuity of Care Document ---
Author Name Unknown Organization [facility] Address [address] [place] [address]- Care Team Providers Care Hand Thermal Cutter Name Role Phone Andrew STONE, Milind Primary Care Physician [phone] [place] [facility] [place]s): 04/25/21 - 05/25/[facility] [address] [place] [id number] Allergies, Adverse Reactions, Alerts Substance [...] give 325mg per patient preference and re-dose [id number] within 4 hours, if needed. Patient should [...] 3 Refills, Maintenance, 02/06/21 9:12:00 EDT, Capsule, [facility]/pharmacy #[id number], Partial fill upon patient request if the prescription is for a schedule II opioid dr... Start Date: 02/06/21 Status: Ordered Dulcolax 10 mg rectal suppository 1 supp = 10 mg, Rectally, Daily, PRN as needed for constipation, # 10 supp, 0 Refills, Maintenance,05/14/21 0:20:00 EDT, Suppository, [facility], Partial fill upon patient request if the prescription is for a schedule II opioid dr... Start Date: 05/14/21 Status: Ordered ferrous sulfate 325 mg oral enteric coated tablet 325 mg, 1, tablet, By Mouth, Daily, # 90 tablet, Refills 2, Tot. Refills 2, Maintenance, 02/06/21 9:12:00 EDT, Route to Pharmacy Electronically, [facility]/pharmacy #[id number], Partial fill upon patient request if the prescription is for a schedule II opioid drug... Start Date: 02/06/21 Status: Ordered ibuprofen 800 mg oral tablet 800 mg, 1, tablet, By Mouth, Every 8 hours, # 30 tablet, Refills 0, Tot. Refills 0, Maintenance, 05/12/21 6:38:00 EDT, Route to Pharmacy Electronically, [facility], Partial fill upon [...] 1 Refills, Maintenance, 02/24/21 12:06:00 EDT, Tablet, [facility], Partial fill upon patient request if the prescription is for a schedule II opioid drug., 158, cm, 02/24/21 10:58:00... Start Date: 02/24/21 Status: Ordered lidocaine 1.8% topical film 1 patch, Topically, Daily, leave on up to 12 hours, # 8 each, 0 Refills, Maintenance, 05/14/21 0:25:00 EDT, Film, [facility], Partial fill upon patient request if the prescriptionis for a schedule II opioid drug., 1 patch Topicall... Start Date: 05/14/21 Status: Ordered MiraLax oral powder for reconstitution = 17 Gm, By Mouth, Daily, dissolve in water before taking, # 255 Gm, 0 Refills, Maintenance, 05/12/21 6:39:00 EDT, REC Powder, [facility], Partial fill upon patient request if theprescription is for a schedule II opioid drug., 17... Start Date: 05/12/21 Status: Ordered MiraLax oral powder for reconstitution = 17 Gm, By Mouth, Daily, dissolve in water before taking, # 255 Gm, 0 Refills, Maintenance, 12/20/20 16:30:00 EST, REC Powder, [facility], Partial fill upon patient request if the prescription is for a schedule II opioid drug., 17... Start Date: 12/20/20 Status: Ordered oxyCODONE 5 mg oral tablet 5 mg, 1, tablet, By Mouth, Every 6 hours, PRN, # 15 tablet, Refills 0, Tot. Refills 0, Maintenance,as needed for pain, 05/12/21 6:39:00 EDT, Route to Pharmacy Electronically, [facility], Partial fill upon patient request if the pr... Start Date: 05/12/21 Status: Ordered Multivitamins with Folic Acid 0.8 mg oral capsule 1 capsule, By Mouth, Daily, # 90 capsule, 3 Refills, Maintenance, 02/06/21 9:12:00 EDT, Capsule, [id number], Please sub for any vit covered by insurance if needed, 1 capsule By MouthDaily, 158, cm, 01/16/21 16:22:00 EDT, Height, 66.1... Start Date: 02/06/21 Status: Ordered senna - oral tablet 2 tablet, By Mouth, Daily at bedtime, PRN for constipation, # 60 tablet, 0 Refills, Maintenance, 05/12/21 6:39:00 EDT, Tablet, [facility], Partial fill upon patient request if theprescription is for a schedule II opioid drug., 158... Start Date: 05/12/21 Status: Ordered simethicone 80 mg oral tablet 1 tablet = 80 mg, Chew, 3 times a day after meals, PRN as needed for gas, # 60 tablet, 0 Refills, Maintenance, 05/12/21 6:39:00 EDT, Tablet, [facility], Partial fill upon [...] 05/12/21 6:38:00 EDT, Route to Pharmacy Electronically, [facility],Partial fill upon patient [...]
--- OUTSIDE RECORDS SUMMARY | 2023-09-12 20:52 | XMS_ITS | Continuity of Care Document ---
Author Name Unknown Organization [facility] Address [address] [place] [address]- Care Team Providers Care Balling Head Tender Name Role Phone Andrew STONE, Milind Primary Care Physician [phone] [place] [facility] [place] 03/10/21 - 04/09/[address] [address]- Allergies, Adverse Reactions, Alerts Substance Reaction Severity [...] Refills, Maintenance, 02/06/21 9:12:00 EDT, [facility]apsule, [id number], Partial fill upon patient request if the prescription is for a schedule II opioid . Start Date: 02/06/21 Status: Ordered ferrous sulfate 325 mg oral enteric coated tablet 325 mg, 1, tablet, By Mouth, Daily, # 90 tablet, Refills 2, Tot. Refills 2, Maintenance, 02/06/21 9:12:00 EDT, Route to Pharmacy Electronically, [facility]/pharmacy #[id number], Partial fill upon patient request if the [...] Refills, Soft Stop, 12/20/20 11:48:00 EST, Solution, [facility], Partial fill upon patient request if the prescription is for a schedule II opioid drug., 158, cm, 12/20/20 8:04:00... Start Date: 12/20/20 Stop Date: 04/09/23 Status: Ordered levothyroxine 0.05 mg oral tablet 1 tablet = 50 mcg, By Mouth, Daily, # 90 tablet, 1 Refills, Maintenance, 02/24/21 12:06:00 EDT, Tablet, [facility], Partial fill upon patient request if the prescription is for a schedule II opioid drug., 158, cm, 02/24/21 10:58:00... Start Date: 02/24/21 Status: Ordered levothyroxine 50 mcg (0.05 mg) oral capsule 1 capsule = 50 mcg, By Mouth, Daily, # 90 capsule, 1 Refills, Maintenance, 02/16/21 12:45:00 EDT, Capsule, [facility]/pharmacy #[id number], Partial fill upon patient request if the prescription is for a schedule II opioid drug., 158, cm, 02/14/21 9:09:00 EDT, Heig... Start Date: 02/16/21 Status: Ordered loratadine 10 mg oral tablet 1, tablet, By Mouth, Daily, # 30 tablet, Refills 1, Tot. Refills 0, Maintenance, 04/08/21 18:40:00 EDT, Route to Pharmacy Electronically, [facility] [id number], [id number], 04/07/21 10:47:00 EDT, Height, 72.2, kg, 03/29/21 22:13:00 EDT, Dry Weight Start Date: 04/08/21 Status: Ordered MiraLax oral powder for reconstitution = 17 Gm, By Mouth, Daily, dissolve in water before taking, # 255 Gm, 0 Refills, Maintenance, 12/20/20 16:30:00 EST, REC Powder, [facility], Partial fill upon patient [...]
--- OUTSIDE RECORDS SUMMARY | 2023-09-12 20:52 | XMS_ITS | Continuity of Care Document ---
Author Name Unknown Organization [facility] ter Address [address] [place] [id number]- Care Team Providers Care Editorial Specialist Name Role Phone Andrew STONE, Milind Primary Care Physician Encounter [facility] [place] ACCT R [id number] Date(s): 04/27/22 - 04/28/[address] [address]- Discharge Disposition: A-D/C Walkout Attending Physician: Not [...] give 325mg per patient preference and re-dose [id number] within 4 hours, if needed. Patient should [...] 3 Refills, Maintenance, 02/06/21 9:12:00 EDT, Capsule, [facility]/pharmacy #[id number], Partial fill upon patient request if the prescription is for a schedule II opioid dr... Start Date: 02/06/21 Status: Ordered Dulcolax 10 mg rectal suppository 1 supp = 10 mg, Rectally, Daily, PRN as needed for constipation, # 10 supp, 0 Refills, Maintenance,05/14/21 0:20:00 EDT, Suppository, [facility], Partial fill upon patient request if the prescription is for a schedule II opioid dr... Start Date: 05/14/21 Status: Ordered ferrous sulfate 325 mg oral enteric coated tablet 325 mg, 1, tablet, By Mouth, Daily, # 90 tablet, Refills 2, Tot. Refills 2, Maintenance, 02/06/21 9:12:00 EDT, Route to Pharmacy Electronically, [facility]/pharmacy #[id number], Partial fill upon patient request if the prescription is for a schedule II opioid drug... Start Date: 02/06/21 Status: Ordered ibuprofen 800 mg oral tablet 800 mg, 1, tablet, By Mouth, Every 8 hours, # 30 tablet, Refills 0, Tot. Refills 0, Maintenance, 05/12/21 6:38:00 EDT, Route to Pharmacy Electronically, [facility], Partial fill upon patient request [...] 1 Refills, Maintenance, 02/24/21 12:06:00 EDT, Tablet, [facility], Partial fill upon patient request if the prescription is for a schedule II opioid drug., 158, cm, 02/24/21 10:58:00... Start Date: 02/24/21 Status: Ordered lidocaine 1.8% topical film 1 patch, Topically, Daily, leave on up to 12 hours, # 8 each, 0 Refills, Maintenance, 05/14/21 0:25:00 EDT, Film, [facility], Partial fill upon patient request if the prescriptionis for a schedule II opioid drug., 1 patch Topicall... Start Date: 05/14/21 Status: Ordered MiraLax oral powder for reconstitution = 17 Gm, By Mouth, Daily, dissolve in water before taking, # 255 Gm, 0 Refills, Maintenance, 05/12/21 6:39:00 EDT, REC Powder, [facility], Partial fill upon patient request if theprescription is for a schedule II opioid drug., 17... Start Date: 05/12/21 Status: Ordered MiraLax oral powder for reconstitution = 17 Gm, By Mouth, Daily, dissolve in water before taking, # 255 Gm, 0 Refills, Maintenance, 12/20/20 16:30:00 EST, REC Powder, [facility], Partial fill upon patient request if the prescription is for a schedule II opioid drug., 17... Start Date: 12/20/20 Status: Ordered oxyCODONE 5 mg oral tablet 5 mg, 1, tablet, By Mouth, Every 6 hours, PRN, # 15 tablet, Refills 0, Tot. Refills 0, Maintenance,as needed for pain, 05/12/21 6:39:00 EDT, Route to Pharmacy Electronically, [facility], Partial fill upon patient request [...] 0 Refills, Maintenance, 05/12/21 6:39:00 EDT, Tablet, [facility], Partial fill upon patient request if theprescription is for a schedule II opioid drug., 158... Start Date: 05/12/21 Status: Ordered simethicone 80 mg oral tablet 1 tablet = 80 mg, Chew, 3 times a day after meals, PRN as needed for gas, # 60 tablet, 0 Refills, Maintenance, 05/12/21 6:39:00 EDT, Tablet, [facility], Partial fill upon patient request [...] 05/12/21 6:38:00 EDT, Route to Pharmacy Electronically, [facility],Partial fill upon patient request if [...] services declined. 9Problem added by Discern Expert Results Orders for Microbiology Reports Name Date Throat Culture Grp A Strep 04/27/22 Microbiology Reports TEST:Group A Strep Culture STATUS:Auth (Verified) BODY SITE: SOURCE:THROAT COLLECTED DATE/TIME:04/27/22 4:20 PM Group A Strep Culture SPECIMEN DESCRIPTION : THROAT SWAB SPECIAL REQUESTS : NONE CULTURE : 4+ STREPTOCOCCI, GR.A BETA HEMOLYTIC REPORT STATUS : FINAL 2022 Radiology Reports * Exam Date Time Procedure Performing Provider Status 04/27/22 5:19 PM Chest 2 Views Frontal and Lat Jesse Eida Juliocesar; Pattie (Verified) Notes: (Chest 2 Views Frontal and Lat) Reason For Exam: Chest Pain;Other: RESULT: Chest 2 Views Frontal and Lat PA and lateral chest dated April 27, 2022. Comparison films are from June 08, 2014. HISTORY: Chest pain. FINDINGS: The cardiac silhouette is within normal limits for size. Hilar and mediastinal structuresare unremarkable. No airspace infiltrate or pleural effusion is identified. There is a mild convex right thoracic scoliosis. IMPRESSION: No evidence of acute pulmonary disease. Examination [address]. Thank you for allowing me to participate in the care of this patient. WSN: [id number] Ordering Physician: Raymond Chambers Dictated By: Rambo Shay MD Dictated Date/Time: 04/27/22 7:04 pm Reviewed By: Rambo Shay MD Signed By: Rambo Shay MD Signed Date/Time: 04/27/22 7:04 pm Transcribed By: WHITNEY Transcribed Date/Time: 04/27/22 7:03 pm Vital Signs Most recent to oldest [Reference Range]: 1 2 3 Height 158 cm (04/27/22 4:24 PM) 158 cm (04/27/22 2:51 PM) Weight 72 kg (04/27/22 4:24 PM) 72 kg (04/27/22 2:51 PM) Oxygen Saturation [94-100 %] 100 % (04/27/22 7:41 PM) 100 % (04/27/22 4:28 PM) 100 % (04/27/22 2:51 PM) Pulse Rate [55-90 bpm] 60 bpm (04/27/22 7:41 PM) 58 bpm (04/27/22 4:28 PM) 89 bpm (04/27/22 2:51 PM) Body Mass Index [18.5-24.99] 28.84 *H* (04/27/22 2:51 PM) Blood Pressure [90-138/55-84 mm Hg] 122/66mm Hg (04/27/22 7:41 PM) 114/67mm Hg (04/27/22 4:28 PM) 96/60mm Hg (04/27/22 2:51 PM) Respiratory Rate [16-30 br/min] 20 br/min (04/27/22 2:51 PM) Temperature [96.8-100.4 DegF] 98.6 DegF (04/27/22 7:41 PM) 98.2 DegF (04/27/22 4:28 PM) 98.6 DegF (04/27/22 2:51 PM) Mode of Delivery (Oxygen) Room air (04/27/22 7:41 PM) Room air (04/27/22 4:28 PM) Room air (04/27/22 2:51 PM) Blood pressure sites Arm, left (04/27/22 7:41 PM) Arm, left (04/27/22 4:28 PM) Arm, right (04/27/22 2:51 PM) Temperature Route Oral (04/27/22 7:41 PM) Oral (04/27/22 4:28 PM) Oral (04/27/22 2:51 PM) Dry Weight 72 kg (04/27/22 4:24 PM) Weight Obtained Via Patient/family state d (04/27/22 2:51 PM) Social History Social History Type Response Smoking Status 10 or more cigarette s (1/2 pack or more)/day in last 30 days entered on: 02/13/21 Sex
--- OUTSIDE RECORDS SUMMARY | 2023-09-12 20:52 | XMS_ITS | Continuity of Care Document ---
Author Name Unknown Organization [facility] Address [address] [place] [id number]- Care Team Providers Care Strap Sewer Name Role Phone Andrew STONE, Milind Primary Care Physician [phone] Encounter [facility] [place] Date(s): 05/08/21 - 07/12/[address] [address]- Attending Physician: Not on Staff, Attending MD [...] give 325mg per patient preference and re-dose [id number] within 4 hours, if needed. Patient should [...] Refills, Maintenance, 02/06/21 9:12:00 EDT, Capsule, [facility]/pharmacy #[id number], Partial fill upon patient request if the prescription is for a schedule II opioid dr... Start Date: 02/06/21 Status: Ordered Dulcolax 10 mg rectal suppository 1 supp = 10 mg, Rectally, Daily, PRN as needed for constipation, # 10 supp, 0 Refills, Maintenance,05/14/21 0:20:00 EDT, Suppository, [facility], Partial fill upon patient request if the prescription is for a schedule II opioid dr... Start Date: 05/14/21 Status: Ordered ferrous sulfate 325 mg oral enteric coated tablet 325 mg, 1, tablet, By Mouth, Daily, # 90 tablet, Refills 2, Tot. Refills 2, Maintenance, 02/06/21 9:12:00 EDT, Route to Pharmacy Electronically, [facility]/pharmacy #[id number], Partial fill upon patient request if the prescription is for a schedule II opioid drug... Start Date: 02/06/21 Status: Ordered ibuprofen 800 mg oral tablet 800 mg, 1, tablet, By Mouth, Every 8 hours, # 30 tablet, Refills 0, Tot. Refills 0, Maintenance, 05/12/21 6:38:00 EDT, Route to Pharmacy Electronically, [facility], Partial fill upon patient request [...] 1 Refills, Maintenance, 02/24/21 12:06:00 EDT, Tablet, [facility], Partial fill upon patient request if the prescription is for a schedule II opioid drug., 158, cm, 02/24/21 10:58:00... Start Date: 02/24/21 Status: Ordered lidocaine 1.8% topical film 1 patch, Topically, Daily, leave on up to 12 hours, # 8 each, 0 Refills, Maintenance, 05/14/21 0:25:00 EDT, Film, [facility], Partial fill upon patient request if the prescriptionis for a schedule II opioid drug., 1 patch Topicall... Start Date: 05/14/21 Status: Ordered MiraLax oral powder for reconstitution = 17 Gm, By Mouth, Daily, dissolve in water before taking, # 255 Gm, 0 Refills, Maintenance, 05/12/21 6:39:00 EDT, REC Powder, [facility], Partial fill upon patient request if theprescription is for a schedule II opioid drug., 17... Start Date: 05/12/21 Status: Ordered MiraLax oral powder for reconstitution = 17 Gm, By Mouth, Daily, dissolve in water before taking, # 255 Gm, 0 Refills, Maintenance, 12/20/20 16:30:00 EST, REC Powder, [facility], Partial fill upon patient request if the prescription is for a schedule II opioid drug., 17... Start Date: 12/20/20 Status: Ordered oxyCODONE 5 mg oral tablet 5 mg, 1, tablet, By Mouth, Every 6 hours, PRN, # 15 tablet, Refills 0, Tot. Refills 0, Maintenance,as needed for pain, 05/12/21 6:39:00 EDT, Route to Pharmacy Electronically, [facility], Partial fill upon patient request [...] 0 Refills, Maintenance, 05/12/21 6:39:00 EDT, Tablet, [facility], Partial fill upon patient request if theprescription is for a schedule II opioid drug., 158... Start Date: 05/12/21 Status: Ordered simethicone 80 mg oral tablet 1 tablet = 80 mg, Chew, 3 times a day after meals, PRN as needed for gas, # 60 tablet, 0 Refills, Maintenance, 05/12/21 6:39:00 EDT, Tablet, [facility], Partial fill upon patient request [...] 05/12/21 6:38:00 EDT, Route to Pharmacy Electronically, [facility],Partial fill upon patient request if [...]
--- OUTSIDE RECORDS SUMMARY | 2023-09-12 20:53 | XMS_ITS | Continuity of Care Document ---
Author Name Unknown Organization [facility] Address [address] [place] [id number]- Care Team Providers Care Auto Refinisher Name Role Phone Andrew STONE, Milind Primary Care Physician Encounter [facility] [place] Date(s): 01/24/21 - 02/23/21 [facility] [address] [place] [id number] Allergies, Adverse Reactions, Alerts Substance Reaction [...] 3 Refills, Maintenance, 02/06/21 9:12:00 EDT, Capsule, [facility]/pharmacy #[id number], Partial fill upon patient request if the prescription is for a schedule II opioid dr... Start Date: 02/06/21 Status: Ordered ferrous sulfate 325 mg oral enteric coated tablet 325 mg, 1, tablet, By Mouth, Daily, # 90 tablet, Refills 2, Tot. Refills 2, Maintenance, 02/06/21 9:12:00 EDT, Route to Pharmacy Electronically, [facility]/pharmacy #[id number], Partial fill upon patient request if the prescription is for a schedule II opioid drug... Start Date: 02/06/21 Status: Ordered HYDROXYprogesterone 250 mg/mL intramuscular solution 1 mL = 250 mg, Intramuscular, Every week, # 4 each, 5 Refills, Soft Stop, 12/20/20 11:48:00 EST, Solution, [facility], Partial fill upon patient request if the prescription is for a schedule II opioid drug., 158, cm, 12/20/20 8:04:00... Start Date: 12/20/20 Stop Date: 04/09/23 Status: Ordered levothyroxine 50 mcg (0.05 mg) oral capsule 1 capsule = 50 mcg, By Mouth, Daily, # 90 capsule, 1 Refills, Maintenance, 02/16/21 12:45:00 EDT, Capsule, [facility] #[id number], Partial fill upon patient request if the prescription is for a schedule II opioid drug., 158, cm, 02/14/21 9:09:00 EDT, Heig... Start Date: 02/16/21 Status: Ordered MiraLax oral powder for reconstitution = 17 Gm, By Mouth, Daily, dissolve in water before taking, # 255 Gm, 0 Refills, Maintenance, 12/20/20 16:30:00 EST, REC Powder, [facility], Partial fill upon patient request [...]
--- OUTSIDE RECORDS SUMMARY | 2023-09-12 20:53 | XMS_ITS | Continuity of Care Document ---
Author Name Unknown Organization [facility] ter Address [address] [place] [id number]- Care Team Providers Care Supervisor Engine Repair Name Role Phone Andrew STONE, Milind Primary Care Physician Encounter [facility] [place] Date(s): 05/06/21 - 05/12/[address] [address] Discharge Disposition: A-D/C Home Attending Physician: Sy Barone MD Admitting Physician: Sy Barone MD Referring Physician: Sy Barone MD Allergies, Adverse Reactions, Alerts Substance Reaction [...] 6:34:00 ED... Start Date: 05/12/21 Status: Ordered Acetaminophen Tablet 650 mg, Tablet, By Mouth, (1-3), may give 325mg per patient preference and re- dose with 325mg within 4 hours, if needed. Patient should only receive a total of 650mg of Acetaminophen every 4 hours., 05/12/21 7:00:00 EDT Start Date: 05/12/21 Stop Date: 05/12/21 Status: Completed bisacodyl 10 mg rectal suppository 1 supp [...] 3 Refills, Maintenance, 02/06/21 9:12:00 EDT, Capsule, [facility]/pharmacy #[id number], Partial fill upon patient request if the prescription is for a schedule II opioid dr... Start Date: 02/06/21 Status: Ordered ferrous sulfate 325 mg oral enteric coated tablet 325 mg, 1, tablet, By Mouth, Daily, # 90 tablet, Refills 2, Tot. Refills 2, Maintenance, 02/06/21 9:12:00 EDT, Route to Pharmacy Electronically, [facility]/pharmacy #[id number], Partial fill upon [...] a ellyn... Start Date: 05/12/21 Status: Ordered Ibuprofen Tablet 800 mg, Tablet, By Mouth, (4-6), may give 400mg per patient preference and re- dose with 400mg within 8 hours, if needed. Patient should only receive a total of 800mg of Ibuprofen every 8 hours., 05/12/21 2:26:00 EDT Start Date: 05/12/21 Stop Date: 05/12/21 Status: Completed levothyroxine 0.05 mg oral tablet 1 tablet = 50 mcg, By Mouth, Daily, # 90 tablet, 1 Refills, Maintenance, 02/24/21 12:06:00 EDT, Tablet, [facility], Partial fill upon patient request if the prescription is for a schedule II opioid drug., 158, cm, 02/24/21 10:58:00... Start Date: 02/24/21 Status: Ordered MiraLax oral powder for reconstitution [...] the pr... Start Date: 05/12/21 Status: Ordered OxyCODONE IR Tablet 5 mg, Tablet, By Mouth, Every 3 hours, PRN for Pain , Severe, (7-10), Routine, 05/09/21 10:26:00 EDT Start Date: 05/09/21 Stop Date: 05/12/21 Status: Discontinued Multivitamins with Folic Acid 0.8 mg oral capsule 1 capsule, By Mouth, Daily, # 90 capsule, 3 Refills, Maintenance, 02/06/21 9:12:00 EDT, Capsule, [id number], Please sub for any vit covered by [...] II opi... Start Date: 05/12/21 Status: Ordered Tylenol 325 mg oral tablet [...] services declined. 9Problem added by Discern Expert Procedures Procedure Date Related Diagnosis Body Site Status delivery only; 05/08/21 C ompleted Vital Signs Most recent to oldest [Reference Range]: 1 2 3 4 Height 158 cm (05/12/21 12:09 AM) 158 cm (05/11/21 4:49 PM) 158 cm (05/11/21 8:56 AM) Weight 74.3 kg (05/06/21 4:29 PM) 74.3 kg (05/06/21 4:24 PM) Oxygen Saturation [94-100 %] 99 % (05/12/21 11:00 AM) 95 % (05/12/21 12:09 AM) 95 % (05/11/21 4:49 PM) Pulse Rate [55-90 bpm] 70 bpm (05/12/21 11:00 AM) 65 bpm (05/12/21 12:09 AM) 76 bpm (05/11/21 4:49 PM) Body Mass Index [18.5-24.99] 29.76 *H* (05/06/21 4:29 PM) 29.76 *H* (05/06/21 4:24 PM) Blood Pressure [90-138/55-84 mm Hg] 110/60mm Hg (05/12/21 11:00 AM) 107/73mm Hg (05/12/21 12:09 AM) 104/65mm Hg (05/11/21 4:49 PM) Respiratory Rate [16-30 br/min] 18 br/min (05/12/21 11:00 AM) 16 br/min (05/12/21 7:03 AM) 16 br/min (05/12/21 7:02 AM) 16 br/min (05/12/21 7:02 AM) Temperature [96.8-100.4 DegF] 98.4 DegF (05/12/21 11:00 AM) 98.4 DegF (05/12/21 12:09 AM) 98.4 DegF (05/11/21 4:49 PM) Mode of Delivery (Oxygen) Room air (05/12/21 11:00 AM) Room air (05/12/21 12:09 AM) Room air (05/11/21 12:02 AM) Blood pressure sites Arm, right (05/12/21 11:00 AM) Arm, left (05/12/21 12:09 AM) Arm, left (05/11/21 12:02 AM) Temperature Route Oral (05/12/21 11:00 AM) Oral (05/12/21 12:09 AM) Oral (05/11/21 4:49 PM) Dry Weight 74.3 kg (05/06/21 4:29 PM) 74.3 kg (05/06/21 4:24 PM) Social History Social History Type Response Smoking Status 10 or more cigarette s (1/2 pack or more)/day in last 30 days entered on: 02/13/21 Sex
--- OUTSIDE RECORDS SUMMARY | 2023-09-12 20:53 | XMS_ITS | Continuity of Care Document ---
Author Name Unknown Organization [facility] Address [address] [place] [address]- Care Team Providers Care Debarker Operator Name Role Phone Andrew STONE, Milind Primary Care Physician [phone] [facility] [place] Date(s): 04/25/21 - 07/03/[address] [address]- Attending Physician: Not on Staff, Attending MD [...] give 325mg per patient preference and re-dose [id number] within 4 hours, if needed. Patient should [...] supp, 0 Refills, Maintenance,05/14/21 0:20:00 EDT, Suppository, [facility], Partial fill upon patient [...] 05/12/21 6:38:00 EDT, Route to Pharmacy Electronically, [facility], Partial fill upon patient [...] 1 Refills, Maintenance, 02/24/21 12:06:00 EDT, Tablet, [facility], Partial fill upon patient request if the prescription is for a schedule II opioid drug., 158, cm, 02/24/21 10:58:00... Start Date: 02/24/21 Status: Ordered lidocaine 1.8% topical film 1 patch, Topically, Daily, leave on up to 12 hours, # 8 each, 0 Refills, Maintenance, 05/14/21 0:25:00 EDT, Film, [facility], Partial fill upon patient request if the prescriptionis for a schedule II opioid drug., 1 patch Topicall... Start Date: 05/14/21 Status: Ordered MiraLax oral powder for reconstitution = 17 Gm, By Mouth, Daily, dissolve in water before taking, # 255 Gm, 0 Refills, Maintenance, 05/12/21 6:39:00 EDT, REC Powder, [facility], Partial fill upon patient request if theprescription is for a schedule II opioid drug., 17... Start Date: 05/12/21 Status: Ordered MiraLax oral powder for reconstitution = 17 Gm, By Mouth, Daily, dissolve in water before taking, # 255 Gm, 0 Refills, Maintenance, 12/20/20 16:30:00 EST, REC Powder, [facility], Partial fill upon patient request if the prescription is for a schedule II opioid drug., 17... Start Date: 12/20/20 Status: Ordered oxyCODONE 5 mg oral tablet 5 mg, 1, tablet, By Mouth, Every 6 hours, PRN, # 15 tablet, Refills 0, Tot. Refills 0, Maintenance,as needed for pain, 05/12/21 6:39:00 EDT, Route to Pharmacy Electronically, [facility], Partial fill upon patient [...] 0 Refills, Maintenance, 05/12/21 6:39:00 EDT, Tablet, [facility], Partial fill upon patient request if theprescription is for a schedule II opioid drug., 158... Start Date: 05/12/21 Status: Ordered simethicone 80 mg oral tablet 1 tablet = 80 mg, Chew, 3 times a day after meals, PRN as needed for gas, # 60 tablet, 0 Refills, Maintenance, 05/12/21 6:39:00 EDT, Tablet, [facility], Partial fill upon patient [...] 05/12/21 6:38:00 EDT, Route to Pharmacy Electronically, [facility],Partial fill upon patient request [...]
--- OUTSIDE RECORDS SUMMARY | 2023-09-12 20:53 | XMS_ITS | Continuity of Care Document ---
Author Name Unknown Organization [facility] Address [address] [place] [id number]- Care Team Providers Care Aircraft Shipping Checker Name Role Phone Andrew STONE, Milind Primary Care Physician Encounter [facility] Date(s): 02/16/21 - 03/18/[address] [address]- Allergies, Adverse Reactions, Alerts Substance Reaction Severity [...] Refills, Maintenance, 02/06/21 9:12:00 EDT, Capsule, [id number], Partial fill upon patient request if the prescription is for a schedule II opioid Start Date: 02/06/21 Status: Ordered ferrous sulfate 325 mg oral enteric coated tablet 325 mg, 1, tablet, By Mouth, Daily, # 90 tablet, Refills 2, Tot. Refills 2, Maintenance, 02/06/21 9:12:00 EDT, Route to Pharmacy Electronically, [facility]/pharmacy #[id number], Partial fill upon patient request if the [...] Refills, Soft Stop, 12/20/20 11:48:00 EST, Solution, [facility], Partial fill upon patient request if the prescription is for a schedule II opioid drug., 158, cm, 12/20/20 8:04:00... Start Date: 12/20/20 Stop Date: 04/09/23 Status: Ordered levothyroxine 0.05 mg oral tablet 1 tablet = 50 mcg, By Mouth, Daily, # 90 tablet, 1 Refills, Maintenance, 02/24/21 12:06:00 EDT, Tablet, [facility], Partial fill upon patient request if the prescription is for a schedule II opioid drug., 158, cm, 02/24/21 10:58:00... Start Date: 02/24/21 Status: Ordered levothyroxine 50 mcg (0.05 mg) oral capsule 1 capsule = 50 mcg, By Mouth, Daily, # 90 capsule, 1 Refills, Maintenance, 02/16/21 12:45:00 EDT, Capsule, [facility]/pharmacy #[id number], Partial fill upon patient request if the prescription is for a schedule II opioid drug., 158, cm, 02/14/21 9:09:00 EDT, Heig... Start Date: 02/16/21 Status: Ordered loratadine 10 mg oral tablet 1, tablet, By Mouth, Daily, # 30 tablet, Refills 1, Tot. Refills 0, Maintenance, 03/10/21 6:57:00 EDT, Route to Pharmacy Electronically, [id number], 158 cm, 03/03/21 11:11:00 EDT, Height, 70.5,kg, 02/13/21 12:38:00 EDT, Dry Weight Start Date: 03/10/21 Status: Ordered MiraLax oral powder for reconstitution = 17 Gm, By Mouth, Daily, dissolve in water before taking, # 255 Gm, 0 Refills, Maintenance, 12/20/20 16:30:00 EST, REC Powder, [facility], Partial fill upon patient [...]
--- OUTSIDE RECORDS SUMMARY | 2023-09-12 20:53 | XMS_ITS | Continuity of Care Document ---
Author Name Unknown Organization [facility] Address [address] [place] [id number]- Care Team Providers Care Clay Molder Name Role Phone Andrew STONE, Milind Primary Care Physician [place] [facility] [place](s): 04/11/21 - 06/22/[address] [address]- Attending Physician: Not on Staff, Attending MD [...] give 325mg per patient preference and re-dose [id number] within 4 hours, if needed. Patient should [...] Maintenance, 02/06/21 9:12:00 EDT, Capsule, [facility]/pharmacy #[id number], Partial fill upon patient request if the prescription is for a schedule II opioid dr... Start Date: 02/06/21 Status: Ordered Dulcolax 10 mg rectal suppository 1 supp = 10 mg, Rectally, Daily, PRN as needed for constipation, # 10 supp, 0 Refills, Maintenance,05/14/21 0:20:00 EDT, Suppository, [facility], Partial fill upon patient request if the prescription is for a schedule II opioid dr... Start Date: 05/14/21 Status: Ordered ferrous sulfate 325 mg oral enteric coated tablet 325 mg, 1, tablet, By Mouth, Daily, # 90 tablet, Refills 2, Tot. Refills 2, Maintenance, 02/06/21 9:12:00 EDT, Route to Pharmacy Electronically, [facility]/pharmacy #[id number], Partial fill upon patient request if the prescription is for a schedule II opioid drug... Start Date: 02/06/21 Status: Ordered ibuprofen 800 mg oral tablet 800 mg, 1, tablet, By Mouth, Every 8 hours, # 30 tablet, Refills 0, Tot. Refills 0, Maintenance, 05/12/21 6:38:00 EDT, Route to Pharmacy Electronically, [facility], Partial fill upon patient [...] 1 Refills, Maintenance, 02/24/21 12:06:00 EDT, Tablet, [facility], Partial fill upon patient request if the prescription is for a schedule II opioid drug., 158, cm, 02/24/21 10:58:00... Start Date: 02/24/21 Status: Ordered lidocaine 1.8% topical film 1 patch, Topically, Daily, leave on up to 12 hours, # 8 each, 0 Refills, Maintenance, 05/14/21 0:25:00 EDT, Film, [facility], Partial fill upon patient request if the prescriptionis for a schedule II opioid drug., 1 patch Topicall... Start Date: 05/14/21 Status: Ordered MiraLax oral powder for reconstitution = 17 Gm, By Mouth, Daily, dissolve in water before taking, # 255 Gm, 0 Refills, Maintenance, 05/12/21 6:39:00 EDT, REC Powder, [facility], Partial fill upon patient request if theprescription is for a schedule II opioid drug., 17... Start Date: 05/12/21 Status: Ordered MiraLax oral powder for reconstitution = 17 Gm, By Mouth, Daily, dissolve in water before taking, # 255 Gm, 0 Refills, Maintenance, 12/20/20 16:30:00 EST, REC Powder, [facility], Partial fill upon patient request if the prescription is for a schedule II opioid drug., 17... Start Date: 12/20/20 Status: Ordered oxyCODONE 5 mg oral tablet 5 mg, 1, tablet, By Mouth, Every 6 hours, PRN, # 15 tablet, Refills 0, Tot. Refills 0, Maintenance,as needed for pain, 05/12/21 6:39:00 EDT, Route to Pharmacy Electronically, [facility], Partial fill upon patient [...] 0 Refills, Maintenance, 05/12/21 6:39:00 EDT, Tablet, [facility], Partial fill upon patient request if theprescription is for a schedule II opioid drug., 158... Start Date: 05/12/21 Status: Ordered simethicone 80 mg oral tablet 1 tablet = 80 mg, Chew, 3 times a day after meals, PRN as needed for gas, # 60 tablet, 0 Refills, Maintenance, 05/12/21 6:39:00 EDT, Tablet, [facility], Partial fill upon patient [...] 05/12/21 6:38:00 EDT, Route to Pharmacy Electronically, [facility],Partial fill upon patient request [...]
--- OUTSIDE RECORDS SUMMARY | 2023-09-12 20:53 | XMS_ITS | Continuity of Care Document ---
Author Name Unknown Organization [facility] Address [address] [place] [phone]- Care Team Providers Care Ict Trainer Name Role Phone Andrew STONE, Milind Primary Care Physician [phone] [facility] [place] Date(s): 05/06/21 - 06/06/[address] [address]- Attending Physician: Bailey Smith MD Admitting Physician: Bailey Smith MD Referring Physician: Quita Chew DO Allergies, Adverse Reactions, Alerts Substance Reaction [...] give 325mg per patient preference and re-dose [id number] within 4 hours, if needed. Patient should [...] Maintenance, 02/06/21 9:12:00 EDT, Capsule, [facility]/pharmacy #[id number], Partial fill upon patient request if the prescription is for a schedule II opioid dr... Start Date: 02/06/21 Status: Ordered Dulcolax 10 mg rectal suppository 1 supp = 10 mg, Rectally, Daily, PRN as needed for constipation, # 10 supp, 0 Refills, Maintenance,05/14/21 0:20:00 EDT, Suppository, [facility], Partial fill upon patient request if the prescription is for a schedule II opioid dr... Start Date: 05/14/21 Status: Ordered ferrous sulfate 325 mg oral enteric coated tablet 325 mg, 1, tablet, By Mouth, Daily, # 90 tablet, Refills 2, Tot. Refills 2, Maintenance, 02/06/21 9:12:00 EDT, Route to Pharmacy Electronically, [facility]/pharmacy #[id number], Partial fill upon patient request if the prescription is for a schedule II opioid drug... Start Date: 02/06/21 Status: Ordered ibuprofen 800 mg oral tablet 800 mg, 1, tablet, By Mouth, Every 8 hours, # 30 tablet, Refills 0, Tot. Refills 0, Maintenance, 05/12/21 6:38:00 EDT, Route to Pharmacy Electronically, [facility], Partial fill upon patient request if [...] 1 Refills, Maintenance, 02/24/21 12:06:00 EDT, Tablet, [facility], Partial fill upon patient request if the prescription is for a schedule II opioid drug., 158, cm, 02/24/21 10:58:00... Start Date: 02/24/21 Status: Ordered lidocaine 1.8% topical film 1 patch, Topically, Daily, leave on up to 12 hours, # 8 each, 0 Refills, Maintenance, 05/14/21 0:25:00 EDT, Film, [facility], Partial fill upon patient request if the prescriptionis for a schedule II opioid drug., 1 patch Topicall... Start Date: 05/14/21 Status: Ordered MiraLax oral powder for reconstitution = 17 Gm, By Mouth, Daily, dissolve in water before taking, # 255 Gm, 0 Refills, Maintenance, 05/12/21 6:39:00 EDT, REC Powder, [facility], Partial fill upon patient request if theprescription is for a schedule II opioid drug., 17... Start Date: 05/12/21 Status: Ordered MiraLax oral powder for reconstitution = 17 Gm, By Mouth, Daily, dissolve in water before taking, # 255 Gm, 0 Refills, Maintenance, 12/20/20 16:30:00 EST, REC Powder, [facility], Partial fill upon patient request if the prescription is for a schedule II opioid drug., 17... Start Date: 12/20/20 Status: Ordered oxyCODONE 5 mg oral tablet 5 mg, 1, tablet, By Mouth, Every 6 hours, PRN, # 15 tablet, Refills 0, Tot. Refills 0, Maintenance,as needed for pain, 05/12/21 6:39:00 EDT, Route to Pharmacy Electronically, [facility], Partial fill upon patient request if the pr... Start Date: 05/12/21 Status: Ordered Multivitamins with Folic Acid 0.8 mg oral capsule 1 capsule, By Mouth, Daily, # 90 capsule, 3 Refills, Maintenance, 02/06/21 9:12:00 EDT, Capsule, [facility] #[id number], Please sub for any vit covered by insurance if needed, 1 capsule By MouthDaily, 158, cm, 01/16/21 16:22:00 EDT, Height, 66.1... Start Date: 02/06/21 Status: Ordered senna - oral tablet 2 tablet, By Mouth, Daily at bedtime, PRN for constipation, # 60 tablet, 0 Refills, Maintenance, 05/12/21 6:39:00 EDT, Tablet, [facility], Partial fill upon patient request if theprescription is for a schedule II opioid drug., 158... Start Date: 05/12/21 Status: Ordered simethicone 80 mg oral tablet 1 tablet = 80 mg, Chew, 3 times a day after meals, PRN as needed for gas, # 60 tablet, 0 Refills, Maintenance, 05/12/21 6:39:00 EDT, Tablet, [facility], Partial fill upon patient request if [...] 05/12/21 6:38:00 EDT, Route to Pharmacy Electronically, [facility],Partial fill upon patient request if the [...]
--- OUTSIDE RECORDS SUMMARY | 2023-09-12 20:53 | XMS_ITS | Continuity of Care Document ---
Author Name Unknown Organization [facility] Address [address] [place] [phone]- Care Team Providers Care Pens And Pencils Dipper Name Role Phone Andrew STONE, Milind Primary Care Physician [phone] [place] [facility] [place]12[place] - 07/12/[address] [address]- Attending Physician: Marie Flores Admitting Physician: AdmMarie [...] give 325mg per patient preference and re-dose [id number] within 4 hours, if needed. Patient should [...] Maintenance, 02/06/21 9:12:00 EDT, Capsule, [facility]/pharmacy #[id number], Partial fill upon patient request if the prescription is for a schedule II opioid dr... Start Date: 02/06/21 Status: Ordered Dulcolax 10 mg rectal suppository 1 supp = 10 mg, Rectally, Daily, PRN as needed for constipation, # 10 supp, 0 Refills, Maintenance,05/14/21 0:20:00 EDT, Suppository, [facility], Partial fill upon patient request if the prescription is for a schedule II opioid dr... Start Date: 05/14/21 Status: Ordered ferrous sulfate 325 mg oral enteric coated tablet 325 mg, 1, tablet, By Mouth, Daily, # 90 tablet, Refills 2, Tot. Refills 2, Maintenance, 02/06/21 9:12:00 EDT, Route to Pharmacy Electronically, [facility]/pharmacy #[id number], Partial fill upon patient request if the prescription is for a schedule II opioid drug... Start Date: 02/06/21 Status: Ordered ibuprofen 800 mg oral tablet 800 mg, 1, tablet, By Mouth, Every 8 hours, # 30 tablet, Refills 0, Tot. Refills 0, Maintenance, 05/12/21 6:38:00 EDT, Route to Pharmacy Electronically, [facility], Partial fill upon patient [...] 0 Refills, Maintenance, 05/14/21 0:25:00 EDT, Film, [facility], Partial fill upon patient request if the prescriptionis for a schedule II opioid drug., 1 patch Topicall... Start Date: 05/14/21 Status: Ordered MiraLax oral powder for reconstitution = 17 Gm, By Mouth, Daily, dissolve in water before taking, # 255 Gm, 0 Refills, Maintenance, 05/12/21 6:39:00 EDT, REC Powder, [facility], Partial fill [...] 05/12/21 6:39:00 EDT, Route to Pharmacy Electronically, [facility], Partial fill upon patient request if the pr... Start Date: 05/12/21 Status: Ordered Multivitamins with Folic Acid 0.8 mg oral capsule 1 capsule, By Mouth, Daily, # 90 capsule, 3 Refills, Maintenance, 02/06/21 9:12:00 EDT, Capsule, [id number], Please sub for any vit covered by insurance if needed, 1 capsule By MouthDaily, 158, cm, 01/16/21 16:22:00 EDT, Height, 66.1... Start Date: 02/06/21 Status: Ordered senna - oral tablet 2 tablet, By Mouth, Daily at bedtime, PRN for constipation, # 60 tablet, 0 Refills, Maintenance, 05/12/21 6:39:00 EDT, Tablet, [facility], Partial fill upon patient request if theprescription is for a schedule II opioid drug., 158... Start Date: 05/12/21 Status: Ordered simethicone 80 mg oral tablet 1 tablet = 80 mg, Chew, 3 times a day after meals, PRN as needed for gas, # 60 tablet, 0 Refills, Maintenance, 05/12/21 6:39:00 EDT, Tablet, [facility], Partial fill [...] 05/12/21 6:38:00 EDT, Route to Pharmacy Electronically, [facility],Partial fill upon patient request if [...]
--- OUTSIDE RECORDS SUMMARY | 2023-09-12 20:53 | XMS_ITS | Continuity of Care Document ---
Author Name Unknown Organization [facility] Address [address] [place] [address]- Care Team Providers Care Director Of Sustainability Programs Name Role Phone Not on Staff, PCP Primary Care Physician Unavail able [place] [facility] [place](s[place] 12/25/20 - 01/24/[address] [address]- Allergies, Adverse Reactions, Alerts Substance Reaction Severity [...] 1 Refills, Maintenance, 01/07/21 10:30:00 EDT, Capsule, [facility]/pharmacy #[id number], Partial fill upon patient request if the prescription is for a schedule II opioid dr... Start Date: 01/07/21 Status: Ordered docusate sodium 100 mg oral capsule 1 capsule = 100 mg, By Mouth, 2 times a day, PRN as needed for constipation, # 20 capsule, 0 Refills, Maintenance, 12/20/20 16:31:00 EST, Capsule, [facility], Partial fill upon patient request if the prescription is for a schedule... Start Date: 12/20/20 Status: Ordered ferrous sulfate 325 mg oral enteric coated tablet 325 mg, 1, tablet, By Mouth, Daily, # 90 tablet, Refills 0, Tot. Refills 0, Maintenance, 12/25/20 10:13:00 EST, Route to Pharmacy Electronically, [facility]/pharmacy #[id number], Partial fill upon patient requestif the prescription is for a schedule II opioid drake... Start Date: 12/25/20 Status: Ordered HYDROXYprogesterone 250 mg/mL intramuscular solution 1 mL = 250 mg, Intramuscular, Every week, # 4 each, 5 Refills, Soft Stop, 12/20/20 11:48:00 EST, Solution, [facility], Partial fill upon patient request if the prescription is for a schedule II opioid drug., 158, cm, 12/20/20 8:04:00... Start Date: 12/20/20 Stop Date: 04/09/23 Status: Ordered levothyroxine 50 mcg (0.05 mg) oral capsule 1 capsule = 50 mcg, By Mouth, Daily, # 30 capsule, 1 Refills, Maintenance, 01/22/21 21:26:00 EDT, Capsule, [facility]/pharmacy #[id number], Partial fill upon patient request if the prescription is for a schedule II opioid drug., 158, cm, 01/16/21 16:22:00 EDT, Hei... Start Date: 01/22/21 Status: Ordered metronidazole topical 0.75% gel with applicator 1 application, Vaginally, Daily at bedtime, # 70 Gm, 0 Refills, Soft Stop, 12/20/20 16:29:00 EST, Gel, [facility], Partial fill upon patient request if the prescription is for a schedule II opioid drug., 1 application Vaginally Vijaya... Start Date: 12/20/20 Stop Date: 12/27/20 Status: Ordered MiraLax oral powder for reconstitution = 17 Gm, By Mouth, Daily, dissolve in water before taking, # 255 Gm, 0 Refills, Maintenance, 12/22/20 16:29:00 EST, REC Powder, [facility]/pharmacy #[id number], Partial fill upon patient request if the prescription is for a schedule II opioid drug., 17 Gm By Mouth... Start Date: 12/22/20 Status: Ordered MiraLax oral powder for reconstitution = 17 Gm, By Mouth, Daily, dissolve in water before taking, # 255 Gm, 0 Refills, Maintenance, 12/20/20 16:30:00 EST, REC Powder, [facility], Partial fill upon patient request [...] 1 Refills, Maintenance, 12/20/20 16:28:00 EST, Tablet, [facility], Partial fill upon patient request [...] she want to at this time - [facility] services declined. 6Pt reports during telehealth OBI visit that she is not currently engaged with mental health services nor does she want to at this time - [facility] services declined. 7CIS note in 2009 - cut wrists Social History Social History Type Response Tobacco Use: 4 or less cigar ettes(less than 1/4 pack)/day in last 30 days. Sex
--- OUTSIDE RECORDS SUMMARY | 2023-09-12 20:53 | XMS_ITS | Continuity of Care Document ---
Author Name Unknown Organization [facility] Address [address] [place] [id number]- Care Team Providers Care Sign Carpenter Name Role Phone Andrew STONE, Milind Primary Care Physician [phone] [place] [facility] [place] Date(s): 07/26/23 - 08/25/[address] [address]- Attending Physician: Marie Flores Admitting Physician: AdmMarie [...] give 325mg per patient preference and re-dose [id number] within 4 hours, if needed. Patient should [...] 3 Refills, Maintenance, 02/06/21 9:12:00 EDT, Capsule, [facility]/pharmacy #[id number], Partial fill upon patient request if the prescription is for a schedule II opioid dr... Start Date: 02/06/21 Status: Ordered Dulcolax 10 mg rectal suppository 1 supp = 10 mg, Rectally, Daily, PRN as needed for constipation, # 10 supp, 0 Refills, Maintenance,05/14/21 0:20:00 EDT, Suppository, [facility], Partial fill upon patient request if the prescription is for a schedule II opioid dr... Start Date: 05/14/21 Status: Ordered ferrous sulfate 325 mg oral enteric coated tablet 325 mg, 1, tablet, By Mouth, Daily, # 90 tablet, Refills 2, Tot. Refills 2, Maintenance, 02/06/21 9:12:00 EDT, Route to Pharmacy Electronically, [facility]/pharmacy #[id number], Partial fill upon patient request if the prescription is for a schedule II opioid drug... Start Date: 02/06/21 Status: Ordered ibuprofen 800 mg oral tablet 800 mg, 1, tablet, By Mouth, Every 8 hours, # 30 tablet, Refills 0, Tot. Refills 0, Maintenance, 05/12/21 6:38:00 EDT, Route to Pharmacy Electronically, [facility], Partial [...] 1 Refills, Maintenance, 02/24/21 12:06:00 EDT, Tablet, [facility], Partial fill upon patient request if the prescription is for a schedule II opioid drug., 158, cm, 02/24/21 10:58:00... Start Date: 02/24/21 Status: Ordered lidocaine 1.8% topical film 1 patch, Topically, Daily, leave on up to 12 hours, # 8 each, 0 Refills, Maintenance, 05/14/21 0:25:00 EDT, Film, [facility], Partial fill upon patient request if the prescriptionis for a schedule II opioid drug., 1 patch Topicall... Start Date: 05/14/21 Status: Ordered MiraLax oral powder for reconstitution = 17 Gm, By Mouth, Daily, dissolve in water before taking, # 255 Gm, 0 Refills, Maintenance, 05/12/21 6:39:00 EDT, REC Powder, [facility] [...] 05/12/21 6:39:00 EDT, Route to Pharmacy Electronically, [facility], Partial fill upon patient request if the pr... Start Date: 05/12/21 Status: Ordered Multivitamins with Folic Acid 0.8 mg oral capsule 1 capsule, By Mouth, Daily, # 90 capsule, 3 Refills, Maintenance, 02/06/21 9:12:00 EDT, Capsule, [id number], Please sub for any vit covered by insurance if needed, 1 capsule By MouthDaily, 158, cm, 01/16/21 16:22:00 EDT, Height, 66.1... Start Date: 02/06/21 Status: Ordered senna - oral tablet 2 tablet, By Mouth, Daily at bedtime, PRN for constipation, # 60 tablet, 0 Refills, Maintenance, 05/12/21 6:39:00 EDT, Tablet, [facility], Partial fill upon patient request if theprescription is for a schedule II opioid drug., 158... Start Date: 05/12/21 Status: Ordered simethicone 80 mg oral tablet 1 tablet = 80 mg, Chew, 3 times a day after meals, PRN as needed for gas, # 60 tablet, 0 Refills, Maintenance, 05/12/21 6:39:00 EDT, Tablet, [facility], Partial [...] 05/12/21 6:38:00 EDT, Route to Pharmacy Electronically, [facility],Partial fill upon patient request if the [...] she want to at this time - [facility] services declined. 2Pt reports during telehealth OBI visit that she is not currently engaged with mental health services nor does she want to at this time - [facility] services declined. 3per pt's own history [...] she want to at this time - [facility] services declined. 7Problem added by Discern Expert Social History Social History Type Response Smoking Status 10 or more cigarette s (1/2 pack or more)/day in last 30 days entered on: 02/13/21 Sex Patient Care team information Care Team Personnel Name: Milind Morales MD Position: [facility] Outreach Member Role: PCP Address: Address: [address] [place] [address]- Care Team Related Persons Name: RODRÍGUEZTEOFILO Ponce Address: [id number] Address: [address] [address] [place] Name: NO ONE, PT PATIENT Name: FRANSISCO RAY Address: home [address] [place] [address] Name: JUNIOR FLOR Address: home [address] [place] [address] Name: PETTY HUMPHREYS Address: home [address] [address]
--- OUTSIDE RECORDS SUMMARY | 2023-09-12 20:53 | XMS_ITS | Continuity of Care Document ---
Author Name Unknown Organization [facility] Address [address] [place] [address]- Care Team Providers Care Cylinder Machine Operator Pulp Drier Name Role Phone Andrew STONE, Milind Primary Care Physician Encounter [facility] Date(s): 01/17/21 - 02/16/[address] [address]- Allergies, Adverse Reactions, Alerts Substance Reaction Severity [...] EDT, 02/10/21 20:42:00 EDT, Suppository, [facility]/pharmacy #[id number], Partial fill upon patient request if the prescription is for a schedule II opioid drug., tamra Alvarez,... Start Date: 02/10/21 Stop Date: 02/21/21 Status: Ordered HYDROXYprogesterone 250 mg/mL intramuscular solution 1 mL = 250 mg, Intramuscular, Every week, # 4 each, 5 Refills, Soft Stop, 12/20/20 11:48:00 EST, Solution, [facility], Partial fill upon patient request if the prescription is for a schedule II opioid drug., tamra Alvarez, 12/20/20 8:04:00... Start Date: 12/20/20 Stop Date: 04/09/23 Status: Ordered levothyroxine 50 mcg (0.05 mg) oral capsule 1 capsule = 50 mcg, By Mouth, Daily, # 90 capsule, 1 Refills, Maintenance, 02/16/21 12:45:00 EDT, Capsule, [facility]/pharmacy #[id number], Partial fill upon patient request if the prescription is for a schedule II opioid drug., tamra Alvarez, 02/14/21 9:09:00 EDT, Heig... Start Date: 02/16/21 Status: Ordered MiraLax oral powder for reconstitution = 17 Gm, By Mouth, Daily, dissolve in water before taking, # 255 Gm, 0 Refills, Maintenance, 12/20/20 16:30:00 EST, REC Powder, [facility], Partial fill upon patient request [...] she want to at this time - [facility] services declined. 3per pt's own history [...]
--- OUTSIDE RECORDS SUMMARY | 2023-09-12 20:53 | XMS_ITS | Continuity of Care Document ---
Author Name Unknown Organization [facility] Address [address] [place] [address]- Care Team Providers Care Product Safety And Standards Engineer Name Role Phone Not on Staff, PCP Primary Care Physician Unavail able [place] [facility] [place] 12/[place]/20 [facility] [address] [address]- Allergies, Adverse Reactions, Alerts Substance Reaction Severity [...] she want to at this time - [facility] services declined. 3per pt's own [...]
--- OUTSIDE RECORDS SUMMARY | 2023-09-12 20:53 | XMS_ITS | Continuity of Care Document ---
Author Name Unknown Organization [facility] Address [address] [place] [address]- Care Team Providers Care Bore Mill Operator For Plastic Name Role Phone Andrew STONE, Milind Primary Care Physician [phone] Encounter [facility] [place] Date(s): 08/04/21 - 11/05/[address] [address]- Attending Physician: Not on Staff, Attending MD [...] give 325mg per patient preference and re-dose [id number] within 4 hours, if needed. Patient should [...] 3 Refills, Maintenance, 02/06/21 9:12:00 EDT, Capsule, [facility]/pharmacy #[id number], Partial fill upon patient [...] 02/06/21 9:12:00 EDT, Route to Pharmacy Electronically, [facility]/pharmacy #[id number], Partial fill upon patient [...]
--- OUTSIDE RECORDS SUMMARY | 2023-09-12 20:53 | XMS_ITS | Continuity of Care Document ---
Author Name Unknown Organization [facility] Address [address] [place] [phone]- Care Team Providers Care Binding Cutter Name Role Phone Andrew STONE, Milind Primary Care Physician Encounter [facility] Date(s): 01/29/21 - 02/28/[address] [address]- Allergies, Adverse Reactions, Alerts Substance Reaction Severity [...] Refills, Soft Stop, 12/20/20 11:48:00 EST, Solution, [facility], Partial fill upon patient request if the prescription is for a schedule II opioid drug., tamra Alvarez, 12/20/20 8:04:00... Start Date: 12/20/20 Stop Date: 04/09/23 Status: Ordered levothyroxine 0.05 mg oral tablet 1 tablet = 50 mcg, By Mouth, Daily, # 90 tablet, 1 Refills, Maintenance, 02/24/21 12:06:00 EDT, Tablet, [facility], Partial fill upon patient request if the prescription is for a schedule II opioid drug., tamra Alvarez, 02/24/21 10:58:00... Start Date: 02/24/21 Status: Ordered levothyroxine 50 mcg (0.05 mg) oral capsule 1 capsule = 50 mcg, By Mouth, Daily, # 90 capsule, 1 Refills, Maintenance, 02/16/21 12:45:00 EDT, Capsule, [facility]/pharmacy #[id number], Partial fill upon patient request if the prescription is for a schedule II opioid drug., tamra Alvarez, 02/14/21 9:09:00 EDT, Heig... Start Date: 02/16/21 Status: Ordered MiraLax oral powder for reconstitution = 17 Gm, By Mouth, Daily, dissolve in water before taking, # 255 Gm, 0 Refills, Maintenance, 12/20/20 16:30:00 EST, REC Powder, [facility], Partial fill upon patient request [...]
--- OUTSIDE RECORDS SUMMARY | 2023-09-12 20:53 | XMS_ITS | Continuity of Care Document ---
Author Name Unknown Organization [facility] Address [address] [place] [phone]- Care Team Providers Care Pulping Machine Operator Name Role Phone Andrew STONE, Milind Primary Care Physician Encounter [facility] [place] Date(s): 04/03/21 - 05/03/[address] [address]- Allergies, Adverse Reactions, Alerts Substance Reaction Severity [...] Refills, Maintenance, 02/06/21 9:12:00 EDT, Capsule, [id number], Partial fill upon patient request if the prescription is for a schedule II opioid . Start Date: 02/06/21 Status: Ordered ferrous sulfate 325 mg oral enteric coated tablet 325 mg, 1, tablet, By Mouth, Daily, # 90 tablet, Refills 2, Tot. Refills 2, Maintenance, 02/06/21 9:12:00 EDT, Route to Pharmacy Electronically, [facility]/pharmacy #[id number], Partial fill upon patient request if the [...] 1 Refills, Maintenance, 02/24/21 12:06:00 EDT, Tablet, [facility], Partial fill upon patient request if the prescription is for a schedule II opioid drug., 158, cm, 02/24/21 10:58:00... Start Date: 02/24/21 Status: Ordered levothyroxine 50 mcg (0.05 mg) oral capsule 1 capsule = 50 mcg, By Mouth, Daily, # 90 capsule, 1 Refills, Maintenance, 02/16/21 12:45:00 EDT, Capsule, [facility]/pharmacy #[id number], Partial fill upon patient request if the prescription is for a schedule II opioid drug., 158, tamra, 02/14/21 9:09:00 EDT, Heig... Start Date: 02/16/21 Status: Ordered loratadine 10 mg oral tablet 1, tablet, By Mouth, Daily, # 30 tablet, Refills 1, Tot. Refills 0, Maintenance, 04/08/21 18:40:00 EDT, Route to Pharmacy Electronically, [id number], tamra Alvarez, 04/07/21 10:47:00 EDT, Height, 72.2, kg, 03/29/21 22:13:00 EDT, Dry Weight Start Date: 04/08/21 Status: Ordered MiraLax oral powder for reconstitution = 17 Gm, By Mouth, Daily, dissolve in water before taking, # 255 Gm, 0 Refills, Maintenance, 12/20/20 16:30:00 EST, REC Powder, [facility], Partial fill upon patient request if the prescription is for a schedule II opioid drug., 17... Start Date: 12/20/20 Status: Ordered Multivitamins with Folic Acid 0.8 mg oral capsule 1 capsule, By Mouth, Daily, # 90 capsule, 3 Refills, Maintenance, 02/06/21 9:12:00 EDT, Capsule, [facility]/pharmacy #[id number], Please sub for [...]
--- OUTSIDE RECORDS SUMMARY | 2023-09-12 20:53 | XMS_ITS | Continuity of Care Document ---
Author Name Unknown Organization [facility] Address [address] [place] [phone]- Care Team Providers Care Manager Client Name Role Phone Not on Staff, PCP Primary Care Physician Unavail able [place] [facility] 12/25/20 - 01/24/[address] [address]- Allergies, Adverse Reactions, Alerts Substance Reaction Severity [...] 0 Refills, Maintenance, 12/20/20 16:31:00 EST, Capsule, [facility], Partial fill upon patient request if the prescription is for a schedule... Start Date: 12/20/20 Status: Ordered ferrous sulfate 325 mg oral enteric coated tablet 325 mg, 1, tablet, By Mouth, Daily, # 90 tablet, Refills 0, Tot. Refills 0, Maintenance, 12/25/20 10:13:00 EST, Route to Pharmacy Electronically, [facility]/pharmacy #[id number], Partial fill upon patient requestif the prescription is for a schedule II opioid drake... Start Date: 12/25/20 Status: Ordered HYDROXYprogesterone 250 mg/mL intramuscular solution 1 mL = 250 mg, Intramuscular, Every week, # 4 each, 5 Refills, Soft Stop, 12/20/20 11:48:00 EST, Solution, [facility], Partial fill upon patient request if the prescription is for a schedule II opioid drug., 158, cm, 12/20/20 8:04:00... Start Date: 12/20/20 Stop Date: 04/09/23 Status: Ordered levothyroxine 50 mcg (0.05 mg) oral capsule 1 capsule = 50 mcg, By Mouth, Daily, # 30 capsule, 1 Refills, Maintenance, 01/22/21 21:26:00 EDT, [id number] fill upon patient request if the prescription is for a schedule II opioid drug., 158, cm, 01/16/21 16:22:00 EDT, Hei... Start Date: 01/22/21 Status: Ordered metronidazole topical 0.75% gel with applicator 1 application, Vaginally, Daily at bedtime, # 70 Gm, 0 Refills, Soft Stop, 12/20/20 16:29:00 EST, Gel, [facility], Partial fill upon patient [...] Refills, Maintenance, 12/20/20 16:30:00 EST, REC Powder, [facility], Partial fill upon patient [...] 1 Refills, Maintenance, 12/20/20 16:28:00 EST, Tablet, [facility], Partial fill upon patient [...] want to at this time - [facility] services declined. 6Pt reports during telehealth OBI visit that she is not currently engaged with mental health services nor does she want to at this time - [facility] services declined. 7CIS note in 2009 - cut wrists Social History Social History Type Response Tobacco Use: 4 or less cigar ettes(less than 1/4 pack)/day in last 30 days. Sex
--- OUTSIDE RECORDS SUMMARY | 2023-09-12 20:53 | XMS_ITS | Continuity of Care Document ---
Author Name Unknown Organization [facility] Address [address] [place] [phone]- Care Team Providers Care Ring Rolling Machine Operator Name Role Phone Andrew STONE, Milind Primary Care Physician [place] [facility] Date[place]): 11/19/21 - 01/28/[address] [address]- Attending Physician: Not on Staff, Attending MD [...] give 325mg per patient preference and re-dose [id number] within 4 hours, if needed. Patient should [...] 3 Refills, Maintenance, 02/06/21 9:12:00 EDT, Capsule, [facility]/pharmacy #[id number], Partial fill upon patient request if the prescription is for a schedule II opioid dr... Start Date: 02/06/21 Status: Ordered Dulcolax 10 mg rectal suppository 1 supp = 10 mg, Rectally, Daily, PRN as needed for constipation, # 10 supp, 0 Refills, Maintenance,05/14/21 0:20:00 EDT, Suppository, [facility], Partial fill upon patient request if the prescription is for a schedule II opioid dr... Start Date: 05/14/21 Status: Ordered ferrous sulfate 325 mg oral enteric coated tablet 325 mg, 1, tablet, By Mouth, Daily, # 90 tablet, Refills 2, Tot. Refills 2, Maintenance, 02/06/21 9:12:00 EDT, Route to Pharmacy Electronically, [facility]/pharmacy #[id number], Partial fill upon patient request if the prescription is for a schedule II opioid drug... Start Date: 02/06/21 Status: Ordered ibuprofen 800 mg oral tablet 800 mg, 1, tablet, By Mouth, Every 8 hours, # 30 tablet, Refills 0, Tot. Refills 0, Maintenance, 05/12/21 6:38:00 EDT, Route to Pharmacy Electronically, [facility], Partial fill upon patient [...] 1 Refills, Maintenance, 02/24/21 12:06:00 EDT, Tablet, [facility], Partial fill upon patient request if the prescription is for a schedule II opioid drug., 158, cm, 02/24/21 10:58:00... Start Date: 02/24/21 Status: Ordered lidocaine 1.8% topical film 1 patch, Topically, Daily, leave on up to 12 hours, # 8 each, 0 Refills, Maintenance, 05/14/21 0:25:00 EDT, Film, [facility], Partial fill upon patient request if the prescriptionis for a schedule II opioid drug., 1 patch Topicall... Start Date: 05/14/21 Status: Ordered MiraLax oral powder for reconstitution = 17 Gm, By Mouth, Daily, dissolve in water before taking, # 255 Gm, 0 Refills, Maintenance, 05/12/21 6:39:00 EDT, REC Powder, [facility], Partial fill upon patient request if theprescription is for a schedule II opioid drug., 17... Start Date: 05/12/21 Status: Ordered MiraLax oral powder for reconstitution = 17 Gm, By Mouth, Daily, dissolve in water before taking, # 255 Gm, 0 Refills, Maintenance, 12/20/20 16:30:00 EST, REC Powder, [facility], Partial fill upon patient request if the prescription is for a schedule II opioid drug., 17... Start Date: 12/20/20 Status: Ordered oxyCODONE 5 mg oral tablet 5 mg, 1, tablet, By Mouth, Every 6 hours, PRN, # 15 tablet, Refills 0, Tot. Refills 0, Maintenance,as needed for pain, 05/12/21 6:39:00 EDT, Route to Pharmacy Electronically, [facility], Partial fill upon patient [...] 0 Refills, Maintenance, 05/12/21 6:39:00 EDT, Tablet, [facility], Partial fill upon patient request if theprescription is for a schedule II opioid drug., 158... Start Date: 05/12/21 Status: Ordered simethicone 80 mg oral tablet 1 tablet = 80 mg, Chew, 3 times a day after meals, PRN as needed for gas, # 60 tablet, 0 Refills, Maintenance, 05/12/21 6:39:00 EDT, Tablet, [facility], Partial fill upon patient [...] 05/12/21 6:38:00 EDT, Route to Pharmacy Electronically, [facility],Partial fill upon patient request if [...]
--- OUTSIDE RECORDS SUMMARY | 2023-09-12 20:53 | XMS_ITS | Continuity of Care Document ---
Author Name Unknown Organization [facility] Address [address] [place] [phone]- Care Team Providers Care Day Care Aide Name Role Phone Andrew STONE, Milind Primary Care Physician Encounter [facility] Date(s): 02/03/21 - 03/05/[address] [address]- Allergies, Adverse Reactions, Alerts Substance Reaction Severity [...] Refills, Maintenance, 02/06/21 9:12:00 EDT, Capsule, [facility]/pharmacy #[id number], Partial fill upon patient request if the prescription is for a schedule II opioid dr... Start Date: 02/06/21 Status: Ordered ferrous sulfate 325 mg oral enteric coated tablet 325 mg, 1, tablet, By Mouth, Daily, # 90 tablet, Refills 2, Tot. Refills 2, Maintenance, 02/06/21 9:12:00 EDT, Route to Pharmacy Electronically, [facility]/pharmacy #[id number], Partial fill upon patient request if the prescription is for a schedule II opioid drug... Start Date: 02/06/21 Status: Ordered HYDROXYprogesterone 250 mg/mL intramuscular solution 1 mL = 250 mg, Intramuscular, Every week, # 4 each, 5 Refills, Soft Stop, 12/20/20 11:48:00 EST, Solution, [facility], Partial fill upon patient request if the prescription is for a schedule II opioid drug., tamra Alvarez, 12/20/20 8:04:00... Start Date: 12/20/20 Stop Date: 04/09/23 Status: Ordered levothyroxine 0.05 mg oral tablet 1 tablet = 50 mcg, By Mouth, Daily, # 90 tablet, 1 Refills, Maintenance, 02/24/21 12:06:00 EDT, Tablet, [facility], Partial fill upon patient request if the prescription is for a schedule II opioid drug., tamra Alvarez, 02/24/21 10:58:00... Start Date: 02/24/21 Status: Ordered levothyroxine 50 mcg (0.05 mg) oral capsule 1 capsule = 50 mcg, By Mouth, Daily, # 90 capsule, 1 Refills, Maintenance, 02/16/21 12:45:00 EDT, Capsule, [facility]/pharmacy #[id number], Partial fill upon patient request if the prescription is for a schedule II opioid drug., tamra Alvarez, 02/14/21 9:09:00 EDT, Heig... Start Date: 02/16/21 Status: Ordered MiraLax oral powder for reconstitution = 17 Gm, By Mouth, Daily, dissolve in water before taking, # 255 Gm, 0 Refills, Maintenance, 12/20/20 16:30:00 EST, REC Powder, [facility], Partial fill upon patient request [...] she want to at this time - [facility] services declined. 2Pt reports during [...] she want to at this time - [facility] services declined. Social History Social History Type Response Smoking Status 10 or more cigarette s (1/2 pack or more)/day in last 30 days entered on: 02/13/21 Sex
--- OUTSIDE RECORDS SUMMARY | 2023-09-12 20:53 | XMS_ITS | Continuity of Care Document ---
Author Name Unknown Organization [facility] Address [address] [place] [phone]- Care Team Providers Care Solder Cream Maker Name Role Phone Andrew STONE, Milind Primary Care Physician [place] [facility] [place](s): 05/07/23 - 06/06/[address] [address]- Allergies, Adverse Reactions, Alerts Substance Reaction Severity [...] give 325mg per patient preference and re-dose [id number] within 4 hours, if needed. Patient should [...] 3 Refills, Maintenance, 02/06/21 9:12:00 EDT, Capsule, [facility]/pharmacy #[id number], Partial fill upon patient request if the prescription is for a schedule II opioid dr... Start Date: 02/06/21 Status: Ordered Dulcolax 10 mg rectal suppository 1 supp = 10 mg, Rectally, Daily, PRN as needed for constipation, # 10 supp, 0 Refills, Maintenance,05/14/21 0:20:00 EDT, Suppository, [facility], Partial fill upon patient request if the prescription is for a schedule II opioid dr... Start Date: 05/14/21 Status: Ordered ferrous sulfate 325 mg oral enteric coated tablet 325 mg, 1, tablet, By Mouth, Daily, # 90 tablet, Refills 2, Tot. Refills 2, Maintenance, 02/06/21 9:12:00 EDT, Route to Pharmacy Electronically, [facility]/pharmacy #[id number], Partial fill upon patient request if the prescription is for a schedule II opioid drug... Start Date: 02/06/21 Status: Ordered ibuprofen 800 mg oral tablet 800 mg, 1, tablet, By Mouth, Every 8 hours, # 30 tablet, Refills 0, Tot. Refills 0, Maintenance, 05/12/21 6:38:00 EDT, Route to Pharmacy Electronically, [facility], Partial fill upon patient request if [...] Maintenance, 02/24/21 12:06:00 EDT, Tablet, [facility], Partial fill upon patient request if the prescription is for a schedule II opioid drug., 158, cm, 02/24/21 10:58:00... Start Date: 02/24/21 Status: Ordered lidocaine 1.8% topical film 1 patch, Topically, Daily, leave on up to 12 hours, # 8 each, 0 Refills, Maintenance, 05/14/21 0:25:00 EDT, Film, [facility], Partial fill upon patient request if the prescriptionis for a schedule II opioid drug., 1 patch Topicall... Start Date: 05/14/21 Status: Ordered MiraLax oral powder for reconstitution = 17 Gm, By Mouth, Daily, dissolve in water before taking, # 255 Gm, 0 Refills, Maintenance, 05/12/21 6:39:00 EDT, REC Powder, [facility], Partial fill upon patient request if theprescription is for a schedule II opioid drug., 17... Start Date: 05/12/21 Status: Ordered MiraLax oral powder for reconstitution = 17 Gm, By Mouth, Daily, dissolve in water before taking, # 255 Gm, 0 Refills, Maintenance, 12/20/20 16:30:00 EST, REC Powder, [facility], Partial fill upon patient request if the prescription is for a schedule II opioid drug., 17... Start Date: 12/20/20 Status: Ordered oxyCODONE 5 mg oral tablet 5 mg, 1, tablet, By Mouth, Every 6 hours, PRN, # 15 tablet, Refills 0, Tot. Refills 0, Maintenance,as needed for pain, 05/12/21 6:39:00 EDT, Route to Pharmacy Electronically, [facility], Partial fill upon patient request if the pr... Start Date: 05/12/21 Status: Ordered Multivitamins with Folic Acid 0.8 mg oral capsule 1 capsule, By Mouth, Daily, # 90 capsule, 3 Refills, Maintenance, 02/06/21 9:12:00 EDT, Capsule, [id number], Please sub for any vit covered by insurance if needed, 1 capsule By MouthDaily, 158, cm, 01/16/21 16:22:00 EDT, Height, 66.1... Start Date: 02/06/21 Status: Ordered senna - oral tablet 2 tablet, By Mouth, Daily at bedtime, PRN for constipation, # 60 tablet, 0 Refills, Maintenance, 05/12/21 6:39:00 EDT, Tablet, [facility], Partial fill upon patient request if theprescription is for a schedule II opioid drug., 158... Start Date: 05/12/21 Status: Ordered simethicone 80 mg oral tablet 1 tablet = 80 mg, Chew, 3 times a day after meals, PRN as needed for gas, # 60 tablet, 0 Refills, Maintenance, 05/12/21 6:39:00 EDT, Tablet, [facility], Partial fill upon patient request if [...] 05/12/21 6:38:00 EDT, Route to Pharmacy Electronically, [facility],Partial fill upon patient request if the [...] [facility] services declined. 2Pt reports during [...] [facility] services declined. 7Problem added by Discern Expert Social History Social History Type Response Smoking Status 10 or more cigarette s (1/2 pack or more)/day in last 30 days entered on: 02/13/21 Sex Patient Care team information Care Team Personnel Name: Milind Morales MD Position: [facility] Outreach Member Role: PCP Address: Address: [address] [place] [address]- Care Team Related Persons Name: TEOFILO RODRÍGUEZ Address: [id number] Address: [address] [place] [address] [place] Name: NO ONE, PT PATIENT Name: FRANSISCO RAY Address: home [address] [place] [address] Name: JUNIOR FLOR Address: home [address] [place] [address] Name: PETTY HUMPHREYS Address: home [address] [place] [address]
--- OUTSIDE RECORDS SUMMARY | 2023-09-12 20:53 | XMS_ITS | Continuity of Care Document ---
Author Name Unknown Organization [facility] Address [address] [place] [address]- Care Team Providers Care Bacteriology Research Assistant Name Role Phone Andrew STONE, Milind Primary Care Physician Encounter [facility] [place] Date(s): 03/14/21 - 03/15/[address] [address]- Discharge Disposition: A-D/C Home Attending Physician: Madeline Nino MD Admitting Physician: Madeline Nino MD Referring Physician: Madeline Nino MD Allergies, Adverse Reactions, Alerts Substance Reaction [...] 9:12:00 EDT, Route to Pharmacy Electronically, [facility]/pharmacy #[id number], Partial fill upon patient request if the prescription is for a schedule II opioid drug... Start Date: 02/06/21 Status: Ordered HYDROXYprogesterone 250 mg/mL intramuscular solution 1 mL = 250 mg, Intramuscular, Every week, # 4 each, 5 Refills, Soft Stop, 12/20/20 11:48:00 EST, Solution, [facility], Partial fill upon patient request if the prescription is for a schedule II opioid drug., 158, tamra, 12/20/20 8:04:00... Start Date: 12/20/20 Stop Date: 04/09/23 Status: Ordered levothyroxine 0.05 mg oral tablet 1 tablet = 50 mcg, By Mouth, Daily, # 90 tablet, 1 Refills, Maintenance, 02/24/21 12:06:00 EDT, Tablet, [facility], Partial fill upon patient request if the prescription is for a schedule II opioid drug., 158, tamra, 02/24/21 10:58:00... Start Date: 02/24/21 Status: Ordered levothyroxine 50 mcg (0.05 mg) oral capsule 1 capsule = 50 mcg, By Mouth, Daily, # 90 capsule, 1 Refills, Maintenance, 02/16/21 12:45:00 EDT, Capsule, [facility]/pharmacy #[id number], Partial fill upon patient request if the prescription is for a schedule II opioid drug., 158tamra, 02/14/21 9:09:00 EDT, Heig... Start Date: 02/16/21 Status: Ordered loratadine 10 mg oral tablet 1, tablet, By Mouth, Daily, # 30 tablet, Refills 1, Tot. Refills 0, Maintenance, 03/10/21 6:57:00 EDT, Route to Pharmacy Electronically, [id number], 158tamra, 03/03/21 11:11:00 EDT, Height, 70.5,kg, 02/13/21 12:38:00 EDT, Dry Weight Start Date: 03/10/21 Status: Ordered MiraLax oral powder for reconstitution = 17 Gm, By Mouth, Daily, dissolve in water before taking, # 255 Gm, 0 Refills, Maintenance, 12/20/20 16:30:00 EST, REC Powder, [facility], Partial fill upon patient [...] she want to at this time - [facility] services declined. 3Problem added by Discern Expert 4Pt reports during telehealth OBI visit that she is not currently engaged with mental health services nor does she want to at this time - [facility] services declined. 5per pt's own history [...] she want to at this time - [facility] services declined. 9Problem added by Discern Expert Vital Signs Most recent to oldest [Reference Range]: 1 2 3 Height 158 cm (03/14/21 4:01 PM) Weight 72.6 kg (03/14/21 4:01 PM) Oxygen Saturation [94-100 %] 99 % (03/15/21 9:15 AM) 98 % (03/14/21 10:27 PM) 100 % (03/14/21 2:59 PM) Pulse Rate [55-90 bpm] 75 bpm (03/14/21 4:01 PM) 73 bpm (03/14/21 2:59 PM) Body Mass Index [18.5-24.99] 29.08 *H* (03/14/21 4:01 PM) Blood Pressure [90-138/55-84 mm Hg] 96/59mm Hg (03/15/21 9:15 AM) 97/60mm Hg (03/14/21 10:27 PM) 94/59mm Hg (03/14/21 4:01 PM) Respiratory Rate [16-30 br/min] 18 br/min (03/15/21 9:15 AM) 20 br/min (03/14/21 10:27 PM) 18 br/min (03/14/21 4:01 PM) Temperature [96.8-100.4 DegF] 98.8 DegF (03/15/21 9:15 AM) 98.2 DegF (03/14/21 10:27 PM) 98.3 DegF (03/14/21 4:01 PM) Mode of Delivery (Oxygen) Room air (03/14/21 2:59 PM) Blood pressure sites Arm, right (03/14/21 4:01 PM) Arm, right (03/14/21 2:59 PM) Temperature Route Oral (03/14/21 10:27 PM) Axillary (03/14/21 4:01 PM) Oral (03/14/21 2:59 PM) Dry Weight 72.6 kg (03/14/21 4:01 PM) Social History Social History Type Response Smoking Status 10 or more cigarette s (1/2 pack or more)/day in last 30 days entered on: 02/13/21 Sex
--- OUTSIDE RECORDS SUMMARY | 2023-09-12 20:53 | XMS_ITS | Continuity of Care Document ---
Author Name Unknown Organization [facility] Address [address] [place] [id number]- Care Team Providers Care Production Control Specialist Name Role Phone Not on Staff, PCP Primary Care Physician Unavail able Encounter [facility] [place] Date(s): 12/12/20 - 01/11/[address] [address]- Allergies, Adverse Reactions, Alerts Substance Reaction Severity [...] 1 Refills, Maintenance, 01/07/21 10:30:00 EDT, Capsule, [facility]/pharmacy #[id number], Partial fill upon patient request if the prescription is for a schedule II opioid dr... Start Date: 01/07/21 Status: Ordered docusate sodium 100 mg oral capsule 1 capsule = 100 mg, By Mouth, 2 times a day, PRN as needed for constipation, # 20 capsule, 0 Refills, Maintenance, 12/20/20 16:31:00 EST, Capsule, [facility], Partial fill upon patient request if the prescription is for a schedule... Start Date: 12/20/20 Status: Ordered ferrous sulfate 325 mg oral enteric coated tablet 325 mg, 1, tablet, By Mouth, Daily, # 90 tablet, Refills 0, Tot. Refills 0, Maintenance, 12/25/20 10:13:00 EST, Route to Pharmacy Electronically, [facility]/pharmacy #[id number], Partial fill upon patient requestif the prescription is for a schedule II opioid drake... Start Date: 12/25/20 Status: Ordered HYDROXYprogesterone 250 mg/mL intramuscular solution 1 mL = 250 mg, Intramuscular, Every week, # 4 each, 5 Refills, Soft Stop, 12/20/20 11:48:00 EST, Solution, [facility], Partial fill upon patient request if the prescription is for a schedule II opioid drug., 158, cm, 12/20/20 8:04:00... Start Date: 12/20/20 Stop Date: 04/09/23 Status: Ordered metronidazole topical 0.75% gel with applicator 1 application, Vaginally, Daily at bedtime, # 70 Gm, 0 Refills, Soft Stop, 12/20/20 16:29:00 EST, Gel, [facility], Partial fill upon patient request if the prescription is for a schedule II opioid drug., 1 application Vaginally Vijaya... Start Date: 12/20/20 Stop Date: 12/27/20 Status: Ordered MiraLax oral powder for reconstitution = 17 Gm, By Mouth, Daily, dissolve in water before taking, # 255 Gm, 0 Refills, Maintenance, 12/22/20 16:29:00 EST, REC Powder, [facility]/pharmacy #[id number], Partial fill upon patient request if the prescription is for a schedule II opioid drug., 17 Gm By Mouth... Start Date: 12/22/20 Status: Ordered MiraLax oral powder for reconstitution = 17 Gm, By Mouth, Daily, dissolve in water before taking, # 255 Gm, 0 Refills, Maintenance, 12/20/20 16:30:00 EST, REC Powder, [facility], Partial fill upon patient request [...] 1 Refills, Maintenance, 12/20/20 16:28:00 EST, Tablet, [facility], Partial fill upon patient request [...] [facility] services declined. 3per pt's own history during telehealth OBI visit. 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 5Pt reports during telehealth OBI visit that she is not currently engaged with mental health services nor does she want to at this time - [facility] services declined. 6Pt reports during telehealth OBI visit that she is not currently engaged with mental health services nor does she want to at this time - [facility] services declined. 7CIS note in 2009 - cut wrists Social History Social History Type Response Tobacco Use: 4 or less cigar ettes(less than 1/4 pack)/day in last 30 days. Sex
--- OUTSIDE RECORDS SUMMARY | 2023-09-12 20:53 | XMS_ITS | Continuity of Care Document ---
Author Name Unknown Organization [facility] Address [address] [place] [phone]- Care Team Providers Care Fitter Placer Name Role Phone Not on Staff, PCP Primary Care Physician Unavail able Encounter [facility] Date(s): 01/03/21 - 02/08/[address] [address]- Attending Physician: Pepe Bautista DO Admitting Physician: Pepe Bautista DO Referring Physician: Anna Chamberlain DO Allergies, Adverse Reactions, Alerts Substance Reaction [...] Route to Pharmacy Electronically, [facility]/pharmacy #[id number], Partial fill upon patient request if the prescription is for a schedule II opioid drug... Start Date: 02/06/21 Status: Ordered HYDROXYprogesterone 250 mg/mL intramuscular solution 1 mL = 250 mg, Intramuscular, Every week, # 4 each, 5 Refills, Soft Stop, 12/20/20 11:48:00 EST, Solution, [facility], Partial fill upon patient request if the prescription is for a schedule II opioid drug., 158, cm, 12/20/20 8:04:00... Start Date: 12/20/20 Stop Date: 04/09/23 Status: Ordered levothyroxine 50 mcg (0.05 mg) oral capsule 1 capsule = 50 mcg, By Mouth, Daily, # 30 capsule, 1 Refills, Maintenance, 01/22/21 21:26:00 EDT, Capsule, [facility]/pharmacy #[id number], Partial fill upon patient request if the prescription is for a schedule II opioid drug., 158, cm, 01/16/21 16:22:00 EDT, Hei... Start Date: 01/22/21 Status: Ordered metronidazole topical 0.75% gel with applicator 1 application, Vaginally, Daily at bedtime, # 70 Gm, 0 Refills, Soft Stop, 12/20/20 16:29:00 EST, Gel, [facility], Partial fill upon patient request if the prescription is for a schedule II opioid drug., 1 application Vaginally Vjiaya... Start Date: 12/20/20 Stop Date: 12/27/20 Status: Ordered MiraLax oral powder for reconstitution = 17 Gm, By Mouth, Daily, dissolve in water before taking, # 255 Gm, 0 Refills, Maintenance, 12/22/20 16:29:00 EST, REC Powder, [facility]/pharmacy #[id number], Partial fill upon [...] 1 Refills, Maintenance, 12/20/20 16:28:00 EST, Tablet, [facility], [...] she want to at this time - [facility] services declined. 3per pt's own [...] she want to at this time - [facility] services declined. 7CIS note in 2009 - cut wrists Social History Social History Type Response Tobacco Use: 4 or less cigar ettes(less than 1/4 pack)/day in last 30 days. Sex
--- OUTSIDE RECORDS SUMMARY | 2023-09-12 20:53 | XMS_ITS | Continuity of Care Document ---
Author Name Unknown Organization [facility] Address [address] [place] [address]- Care Team Providers Care Receiving Lead Name Role Phone Andrew STONE, Milind Primary Care Physician Encounter [facility] [place] Date(s): 04/25/21 - 06/26/[address] [address]- Attending Physician: Not on Staff, Attending MD [...] give 325mg per patient preference and re-dose [id number] within 4 hours, if needed. Patient should [...] 3 Refills, Maintenance, 02/06/21 9:12:00 EDT, Capsule, [facility]/pharmacy #[id number], Partial fill upon patient request if the prescription is for a schedule II opioid dr... Start Date: 02/06/21 Status: Ordered Dulcolax 10 mg rectal suppository 1 supp = 10 mg, Rectally, Daily, PRN as needed for constipation, # 10 supp, 0 Refills, Maintenance,05/14/21 0:20:00 EDT, Suppository, [facility], Partial fill upon patient request if the prescription is for a schedule II opioid dr... Start Date: 05/14/21 Status: Ordered ferrous sulfate 325 mg oral enteric coated tablet 325 mg, 1, tablet, By Mouth, Daily, # 90 tablet, Refills 2, Tot. Refills 2, Maintenance, 02/06/21 9:12:00 EDT, Route to Pharmacy Electronically, [facility]/pharmacy #[id number], Partial fill upon patient request if the prescription is for a schedule II opioid drug... Start Date: 02/06/21 Status: Ordered ibuprofen 800 mg oral tablet 800 mg, 1, tablet, By Mouth, Every 8 hours, # 30 tablet, Refills 0, Tot. Refills 0, Maintenance, 05/12/21 6:38:00 EDT, Route to Pharmacy Electronically, [facility], Partial fill upon patient request [...] 1 Refills, Maintenance, 02/24/21 12:06:00 EDT, Tablet, [facility], Partial fill upon patient request if the prescription is for a schedule II opioid drug., 158, cm, 02/24/21 10:58:00... Start Date: 02/24/21 Status: Ordered lidocaine 1.8% topical film 1 patch, Topically, Daily, leave on up to 12 hours, # 8 each, 0 Refills, Maintenance, 05/14/21 0:25:00 EDT, Film, [facility], Partial fill upon patient request if the prescriptionis for a schedule II opioid drug., 1 patch Topicall... Start Date: 05/14/21 Status: Ordered MiraLax oral powder for reconstitution = 17 Gm, By Mouth, Daily, dissolve in water before taking, # 255 Gm, 0 Refills, Maintenance, 05/12/21 6:39:00 EDT, REC Powder, [facility], Partial fill upon patient request if theprescription is for a schedule II opioid drug., 17... Start Date: 05/12/21 Status: Ordered MiraLax oral powder for reconstitution = 17 Gm, By Mouth, Daily, dissolve in water before taking, # 255 Gm, 0 Refills, Maintenance, 12/20/20 16:30:00 EST, REC Powder, [facility], Partial fill upon patient request if the prescription is for a schedule II opioid drug., 17... Start Date: 12/20/20 Status: Ordered oxyCODONE 5 mg oral tablet 5 mg, 1, tablet, By Mouth, Every 6 hours, PRN, # 15 tablet, Refills 0, Tot. Refills 0, Maintenance,as needed for pain, 05/12/21 6:39:00 EDT, Route to Pharmacy Electronically, [facility], Partial fill upon patient request if the pr... Start Date: 05/12/21 Status: Ordered Multivitamins with Folic Acid 0.8 mg oral capsule 1 capsule, By Mouth, Daily, # 90 capsule, 3 Refills, Maintenance, 02/06/21 9:12:00 EDT, Capsule, [facility]/pharmacy #[id number], Please sub for any vit covered by insurance if needed, 1 capsule By MouthDaily, 158, cm, 01/16/21 16:22:00 EDT, Height, 66.1... Start Date: 02/06/21 Status: Ordered senna - oral tablet 2 tablet, By Mouth, Daily at bedtime, PRN for constipation, # 60 tablet, 0 Refills, Maintenance, 05/12/21 6:39:00 EDT, Tablet, [facility], Partial fill upon patient request if theprescription is for a schedule II opioid drug., 158... Start Date: 05/12/21 Status: Ordered simethicone 80 mg oral tablet 1 tablet = 80 mg, Chew, 3 times a day after meals, PRN as needed for gas, # 60 tablet, 0 Refills, Maintenance, 05/12/21 6:39:00 EDT, Tablet, [facility], Partial fill upon patient request [...] 05/12/21 6:38:00 EDT, Route to Pharmacy Electronically, [facility],Partial fill upon patient request if [...]
--- OUTSIDE RECORDS SUMMARY | 2023-09-12 20:53 | XMS_ITS | Continuity of Care Document ---
Author Name Unknown Organization [facility] Address [address] [place] [address]- Care Team Providers Care Lion Trainer Name Role Phone Andrew STONE, Milind Primary Care Physician [phone] Encounter [facility] Date(s): 01/29/21 - 02/28/[address] [address]- Allergies, Adverse Reactions, Alerts Substance Reaction Severity [...] Refills, Maintenance, 02/06/21 9:12:00 EDT, Capsule, [facility]/pharmacy #[id number], [...] Refills, Soft Stop, 12/20/20 11:48:00 EST, Solution, [facility], Partial fill upon patient request if the prescription is for a schedule II opioid drug., tamra Alvarez, 12/20/20 8:04:00... Start Date: 12/20/20 Stop Date: 04/09/23 Status: Ordered levothyroxine 0.05 mg oral tablet 1 tablet = 50 mcg, By Mouth, Daily, # 90 tablet, 1 Refills, Maintenance, 02/24/21 12:06:00 EDT, Tablet, [facility], Partial fill upon patient request [...] Refills, Maintenance, 12/20/20 16:30:00 EST, REC Powder, [facility], Partial fill upon patient request [...]
--- OUTSIDE RECORDS SUMMARY | 2023-09-12 20:53 | XMS_ITS | Continuity of Care Document ---
Author Name Unknown Organization [facility] Address [address] [place] [address]- Care Team Providers Care Single End Sewer Name Role Phone Andrew STONE, Milind Primary Care Physician Encounter [facility] [place] Date(s): 02/23/22 - 03/25/[address] [address]- Attending Physician: Marie Flores Admitting Physician: Marie Flores Referring Physician: AdmtrMarie Allergies, Adverse Reactions, Alerts [...] give 325mg per patient preference and re-dose [id number] within 4 hours, if needed. Patient should [...] supp, 0 Refills, Maintenance,05/14/21 0:20:00 EDT, Suppository, [facility], Partial fill upon patient [...] 05/12/21 6:38:00 EDT, Route to Pharmacy Electronically, [facility], Partial fill upon patient [...] 1 Refills, Maintenance, 02/24/21 12:06:00 EDT, Tablet, [facility], Partial fill upon patient request if the prescription is for a schedule II opioid drug., 158, cm, 02/24/21 10:58:00... Start Date: 02/24/21 Status: Ordered lidocaine 1.8% topical film 1 patch, Topically, Daily, leave on up to 12 hours, # 8 each, 0 Refills, Maintenance, 05/14/21 0:25:00 EDT, Film, [facility], Partial fill upon patient request if the prescriptionis for a schedule II opioid drug., 1 patch Topicall... Start Date: 05/14/21 Status: Ordered MiraLax oral powder for reconstitution = 17 Gm, By Mouth, Daily, dissolve in water before taking, # 255 Gm, 0 Refills, Maintenance, 05/12/21 6:39:00 EDT, REC Powder, [facility], Partial fill upon patient request if theprescription is for a schedule II opioid drug., 17... Start Date: 05/12/21 Status: Ordered MiraLax oral powder for reconstitution = 17 Gm, By Mouth, Daily, dissolve in water before taking, # 255 Gm, 0 Refills, Maintenance, 12/20/20 16:30:00 EST, REC Powder, [facility], Partial fill upon patient request if the prescription is for a schedule II opioid drug., 17... Start Date: 12/20/20 Status: Ordered oxyCODONE 5 mg oral tablet 5 mg, 1, tablet, By Mouth, Every 6 hours, PRN, # 15 tablet, Refills 0, Tot. Refills 0, Maintenance,as needed for pain, 05/12/21 6:39:00 EDT, Route to Pharmacy Electronically, [facility], Partial fill upon patient request if the pr... Start Date: 05/12/21 Status: Ordered Multivitamins with Folic Acid 0.8 mg oral capsule 1 capsule, By Mouth, Daily, # 90 capsule, 3 Refills, Maintenance, 02/06/21 9:12:00 EDT, Capsule, [id number], Please sub for any vit covered by insurance if needed, 1 capsule By MouthDaily, 158, cm, 01/16/21 16:22:00 EDT, Height, 66.1... Start Date: 02/06/21 Status: Ordered senna - oral tablet 2 tablet, By Mouth, Daily at bedtime, PRN for constipation, # 60 tablet, 0 Refills, Maintenance, 05/12/21 6:39:00 EDT, Tablet, [facility], Partial fill upon patient request if theprescription is for a schedule II opioid drug., 158... Start Date: 05/12/21 Status: Ordered simethicone 80 mg oral tablet 1 tablet = 80 mg, Chew, 3 times a day after meals, PRN as needed for gas, # 60 tablet, 0 Refills, Maintenance, 05/12/21 6:39:00 EDT, Tablet, [facility], Partial fill upon patient [...] 05/12/21 6:38:00 EDT, Route to Pharmacy Electronically, [facility],Partial fill upon patient request if the [...]
--- OUTSIDE RECORDS SUMMARY | 2023-09-12 20:53 | XMS_ITS | Continuity of Care Document ---
Author Name Unknown Organization [facility] Address [address] [place] [address]- Care Team Providers Care Substation Manager Name Role Phone Andrew STONE, Milind Primary Care Physician Encounter [facility] Date(s): 04/25/21 - 07/10/[address] [address]- Attending Physician: Not on Staff, Attending MD [...] give 325mg per patient preference and re-dose [id number] within 4 hours, if needed. Patient should [...] 3 Refills, Maintenance, 02/06/21 9:12:00 EDT, Capsule, [facility]/pharmacy #[id number], Partial fill upon patient request if the prescription is for a schedule II opioid dr... Start Date: 02/06/21 Status: Ordered Dulcolax 10 mg rectal suppository 1 supp = 10 mg, Rectally, Daily, PRN as needed for constipation, # 10 supp, 0 Refills, Maintenance,05/14/21 0:20:00 EDT, Suppository, [facility], Partial fill upon patient request if the prescription is for a schedule II opioid dr... Start Date: 05/14/21 Status: Ordered ferrous sulfate 325 mg oral enteric coated tablet 325 mg, 1, tablet, By Mouth, Daily, # 90 tablet, Refills 2, Tot. Refills 2, Maintenance, 02/06/21 9:12:00 EDT, Route to Pharmacy Electronically, [facility]/pharmacy #[id number], Partial fill upon patient request if the prescription is for a schedule II opioid drug... Start Date: 02/06/21 Status: Ordered ibuprofen 800 mg oral tablet 800 mg, 1, tablet, By Mouth, Every 8 hours, # 30 tablet, Refills 0, Tot. Refills 0, Maintenance, 05/12/21 6:38:00 EDT, Route to Pharmacy Electronically, [facility], Partial fill upon patient request [...] 1 Refills, Maintenance, 02/24/21 12:06:00 EDT, Tablet, [facility], Partial fill upon patient request if the prescription is for a schedule II opioid drug., 158, cm, 02/24/21 10:58:00... Start Date: 02/24/21 Status: Ordered lidocaine 1.8% topical film 1 patch, Topically, Daily, leave on up to 12 hours, # 8 each, 0 Refills, Maintenance, 05/14/21 0:25:00 EDT, Film, [facility], Partial fill upon patient request if the prescriptionis for a schedule II opioid drug., 1 patch Topicall... Start Date: 05/14/21 Status: Ordered MiraLax oral powder for reconstitution = 17 Gm, By Mouth, Daily, dissolve in water before taking, # 255 Gm, 0 Refills, Maintenance, 05/12/21 6:39:00 EDT, REC Powder, [facility], Partial fill upon patient request if theprescription is for a schedule II opioid drug., 17... Start Date: 05/12/21 Status: Ordered MiraLax oral powder for reconstitution = 17 Gm, By Mouth, Daily, dissolve in water before taking, # 255 Gm, 0 Refills, Maintenance, 12/20/20 16:30:00 EST, REC Powder, [facility], Partial fill upon patient request if the prescription is for a schedule II opioid drug., 17... Start Date: 12/20/20 Status: Ordered oxyCODONE 5 mg oral tablet 5 mg, 1, tablet, By Mouth, Every 6 hours, PRN, # 15 tablet, Refills 0, Tot. Refills 0, Maintenance,as needed for pain, 05/12/21 6:39:00 EDT, Route to Pharmacy Electronically, [facility], Partial fill upon patient request [...] 0 Refills, Maintenance, 05/12/21 6:39:00 EDT, Tablet, [facility], Partial fill upon patient request if theprescription is for a schedule II opioid drug., 158... Start Date: 05/12/21 Status: Ordered simethicone 80 mg oral tablet 1 tablet = 80 mg, Chew, 3 times a day after meals, PRN as needed for gas, # 60 tablet, 0 Refills, Maintenance, 05/12/21 6:39:00 EDT, Tablet, [facility], Partial fill upon patient request [...] 05/12/21 6:38:00 EDT, Route to Pharmacy Electronically, [facility],Partial fill upon patient request if [...]
== END 2023-09-12 20:54 | disposition left against medical advice (07) ==
LOC: HO.ED 20:49
PROVIDERS: Physician Assistant; Emergency Provider Emergency Medicine
DX: R10.2 Pelvic and perineal pain (principal); M79.605 Pain in left leg; M79.604 Pain in right leg; R94.31 Abnormal electrocardiogram [ECG] [EKG]; Z79.899 Other long term (current) drug therapy
CPT/HCPCS: 36415; 80053; 83690; 84484; 84702; 85025; 85610; 85730; 93005; 99283

== ENCOUNTER 2024-03-01 13:39 | Outpatient (REF) | payer OTHER, SELFPAY ==
[2024-03-01 16:18] LABS: PLT CLUMP 1; Red Cell Distribution Width 12.9 % (11.0-16.0)
[2024-03-01 16:20] LABS: Hematocrit 40.9 % (37.0-47.0); Mean Corpuscular HGB Conc 31.8 g/dl (31.0-35.0); Mean Corpuscular Hemoglobin 29.2 pg (27.0-33.0); Mean Corpuscular Volume 91.9 fL (80.0-98.0); Mean Platelet Volume 11.8 fL (9.4-12.3); Red Blood Count 4.45 X10*6/uL (4.20-5.50)
[2024-03-01 16:21] LABS: White Blood Count 6.8 X10*3/uL (4.8-10.8)
[2024-03-01 16:22] LABS: Platelet Count 116 X10*3/uL (160-400)
[2024-03-01 16:25] LABS: Estimated Average Glucose 85 mg/dL; Hemoglobin A1c % 4.6 % (<6.0)
[2024-03-01 16:51] LABS: Alanine Aminotransferase 9 U/L (0-31); Albumin Level 4.4 g/dL (3.5-5.0); Alkaline Phosphatase 60 U/L (39-117); Anion Gap 12 (12-20); Aspartate Amino Transferase 15 U/L (5-31); Bilirubin Direct 0.2 mg/dL (0.0-0.5); Bilirubin Total 0.5 mg/dL (0.0-1.0); Blood Urea Nitrogen 9 mg/dL (9-16); Calcium 9.5 mg/dL (8.4-10.2); Carbon Dioxide 24 mmol/L (22-29); Chloride 109 mmol/L (96-108); Cholesterol 138 mg/dL (<200); Estimated Glomerular Filt Rate > 60; Glucose Random 92 mg/dL (60-115); HDL Cholesterol 44 mg/dL (>40); Iron 136 mcg/dL (30-160); LDL Cholesterol Calculated 76 mg/dL (<100); Percent Iron Saturation 44 % (15-50); Potassium 3.8 mmol/L (3.3-5.1); Sodium 141 mmol/L (135-145); Total Iron Binding Capacity 310 mcg/dL (228-428); Total Protein 7.2 g/dL (6.5-8.0); Triglycerides 91 mg/dL (<150); Unsaturated Iron Binding 174 ug/dL
[2024-03-01 17:11] LABS: Ferritin 103 ng/mL (10-122); Free T4 (Free Thyroxine) 0.78 ng/dL (0.71-1.85); Thyroid Stimulating Hormone 7.03 uIU/mL (0.32-4.0)
[2024-03-01 20:00] LABS: Folate 10.5 ng/mL (> or = 4.0); Vitamin B12 270 pg/mL (200-900)
== END 2024-03-01 13:40 | disposition home or self-care (01) ==
LOC: HO.HHCL 13:39
PROVIDERS: Visit Provider Family Medicine
DX: Z00.00 Encounter for general adult medical examination without abnormal findings (principal); R42 Dizziness and giddiness
CPT/HCPCS: 36415; 80048; 80061; 80076; 82306; 82607; 82728; 82746; 83036; 83540; 84439; 84443; 85027

== ENCOUNTER → 2024-05-09 12:10 | Outpatient (BNV) | payer MEDICARE, MEDICAID, SELFPAY | PROVIDERS: PCP Family Medicine; Visit Provider Internal Medicine Medical Oncology | DX: D69.6 Thrombocytopenia, unspecified (principal) | CPT/HCPCS: 99204 ==

== ENCOUNTER 2025-05-25 10:07 | Outpatient (REF) | payer OTHER, SELFPAY ==
--- OUTSIDE RECORDS SUMMARY | 2025-05-25 10:18 | XMS_ITS | Encounter Summary ---
Author Organization [facility] Address [address] [facility] [address] [place] [address] Care Team Providers Care Biomathematician Name Role Phone Leanne Bowie TRICIA Primary Care Provider [phone] Encounter Details Date Type Department Care Team (Latest Contact Info) Description 05/25/2025 Travel Social History Tobacco Use Types Packs/Day Years Used Date Smoking Tobacco: Every Day Cigarettes Alcohol Use Standard Drinks/Week Comments Not Asked 0 (1 standard drink = 0.6 oz pur e alcohol) Depression Answer Date Recorded Patient Health Questionnaire-9 Score 17 11/15/2023 Patient Health Questionnaire-9 Score 17 11/15/2023 Last PHQ-9: Questionnaire Data Not on file 0 11/15/2023 Housing Stability Answer Date Recorded What is your housing situation today? I do not have housing (Staying with others, in a hotel, in a fdc, living outside on the street, on a beach, in a car, or in a park 08/03/[address] you li ve. Do you have problems with any of the following? None of the above 08/03/2023 Food Insecurity Answer Date Recorded Within the past 12 months, y ou worried that your food would run out before you got money to buy more: Sometimes True 2022 Within the past 12 months,th e food you bought just didn't last and you didn't have enough money to get more: Sometimes True 08/16/2023 Transportation Answer Date Recorded In the past 12 months, has l ack of transportation kept you from medical appts, meetings, work or from getting things needed for daily living? No 08/16/2023 Utilities Answer Date Recorded In the past 12 months, has t he electric, gas, oil or water company threatened to shut off services in your home? No 08/16/2023 Depression Answer Date Recorded Patient Health Questionnaire-2 Score 4 11/15/2023 Comments Unknown Sex and Gender Information Value Date Recorded Sex Assigned at Female 08/24/2022 10:18 AM EDT Legal Sex Female 10:18 AM EDT Gender Identity Female 08/24/2022 10:18 AM EDT Sexual Orientation Straight 08/24/2022 10 :18 AM EDT documented as of this encounter Plan of Treatment Not on file documented as of this encounter Visit Diagnoses Not on filedocumented in this encounter Additional Health Concerns Assessment Noted Time PHQ-9 Depression Total Score: 17 024 9:17 AM EST documented as of this encounter Care Teams Biomathematician Relationship Specialty Start Date End Date Leanne Bowie NP [address] [place] [id number] PCP - General Family Medicine 06/27/24 documented as of this encounter
[2025-05-25 12:19] LABS: MANUAL DIFF FLAG NO
[2025-05-25 12:23] LABS: Hematocrit 38.8 % (37.0-47.0); Hemoglobin 12.7 g/dl (12.0-16.0); Imm Gran Abs Auto 0.01 X10*3/uL (0.00-0.03); Imm Gran Pct Auto 0.2 % (0.0-0.4); Lymphocytes Absolute Auto 2.0 X10*3/uL (1.2-4.9); Mean Corpuscular HGB Conc 32.7 g/dl (31.0-35.0); Mean Corpuscular Hemoglobin 29.1 pg (27.0-33.0); Mean Corpuscular Volume 89.0 fL (80.0-98.0); NRBC Abs Auto 0.000 X10*3/uL (0.0-0.012); NRBC Pct Auto 0.0 /100WBC (0.0-0.2); Platelet Count 128 X10*3/uL (160-400); Red Blood Count 4.36 X10*6/uL (4.20-5.50); White Blood Count 5.8 X10*3/uL (4.8-10.8)
[2025-05-25 13:10] LABS: Alanine Aminotransferase 15 U/L (0-31); Albumin Level 4.6 g/dL (3.5-5.0); Alkaline Phosphatase 57 U/L (39-117); Anion Gap 10 (12-20); Aspartate Amino Transferase 20 U/L (5-31); Blood Urea Nitrogen 11 mg/dL (9-16); Calcium 8.8 mg/dL (8.4-10.2); Carbon Dioxide 22 mmol/L (22-29); Chloride 111 mmol/L (96-108); Estimated Glomerular Filt Rate > 60; Potassium 4.1 mmol/L (3.3-5.1); Sodium 139 mmol/L (135-145); Total Protein 7.1 g/dL (6.5-8.0)
[2025-05-25 13:41] LABS: Free T4 (Free Thyroxine) 0.85 ng/dL (0.71-1.85)
[2025-05-25 14:22] LABS: CT PCR NOT DETECTED (Not Detect.); NG PCR NOT DETECTED (Not Detect.)
== END 2025-05-25 10:08 | disposition home or self-care (01) ==
LOC: HO.HHCL 10:07
PROVIDERS: Internal Medicine Medical Oncology; PCP Nurse Practitioner Family; Visit Provider Nurse Practitioner Family
DX: Z11.3 Encounter for screening for infections with a predominantly sexual mode of transmission (principal); D69.6 Thrombocytopenia, unspecified; E03.9 Hypothyroidism, unspecified
CPT/HCPCS: 36415; 80053; 84439; 84443; 85025; 87491; 87591

== ENCOUNTER 2025-08-27 13:27 | Emergency (ER) | payer OTHER, SELFPAY ==
[2025-08-27 14:19] VITALS: BP 125/63; PULSE 86; RESP 16; TEMP 36.6; O2SAT 98; BMI 29.7
--- NOTE | 2025-08-27 14:19 | ED.GENADULT ---
HPI - General Adult General Chief complaint: Ear Problems Stated complaint: ear pain going to jaw Time Seen by Provider: 08/27/25 15:41 Source: patient Mode of arrival: ambulatory Limitations: no limitations History of Present Illness ED Provider: JULIANA NUÑEZ PA-C HPI narrative: 40 year old female presents to the ED for evaluation of left ear pain x3 days. Denies injury/trauma, drainage, hearing changes. Admits to associated nasal congestion and mild sore throat. Reports taking tylenol at home with her last dose being last night. Denies headache, fever, chills, N/V, difficulty swallowing. Denies sick contacts. Related Data Home Medications ?Medication ?Instructions ?Recorded ?Confirmed meclizine 25 mg tablet 25 mg PO TID dizziness 05/09/24 05/09/24 Previous Rx's ?Medication ?Instructions ?Recorded ciprofloxacin 0.3 %-dexamethasone 4 drp otic (ear) left BID 7 days 08/27/25 0.1 % ear drops,suspension #7.5 mL doxycycline hyclate 100 mg capsule 100 mg PO BID 7 days #14 caps 08/27/25 Allergies Allergy/AdvReac Type Severity Reaction Status Date / Time acetaminophen (From Vicodin) Allergy Severe Hives, Verified 08/27/25 14:19 swelling hydrocodone (From Vicodin) Allergy Severe Hives, Verified 08/27/25 14:19 swelling hydromorphone (Hydromorphone) Allergy Severe HIVES AND Verified 08/27/25 14:19 SWELLING codeine (CODEINE) Allergy Intermediate RASH Verified 08/27/25 14:19 amoxicillin (AMOXICILLIN) Allergy Unknown VOMIT Verified 08/27/25 14:19 Review of Systems Review of Systems: Yes all other systems are reviewed and are negative [facility] Past Medical History Attestation statement: The following information was validated with the patient. Source: old records reviewed and nursing notes reviewed Medical History No known health problems Family History Family History Paternal Grandmother Breast cancer Social History Social History Household Members: Family Alcohol intake: never Patient Tobacco Use Status: Former Tobacco user Substance Use Type: Marijuana Advance Directives: No Advance Directives Information Provided: Yes service: No Current occupational status: employed Physical Exam ED Vital Signs: Vital Signs - 24 hr 08/27/25 14:19 08/27/25 16:53 Temperature 97.9 F 97.9 F Pulse Rate 86 86 Respiratory Rate 16 16 Blood Pressure 125/63 125/63 Pulse Oximetry 98 98 Oxygen Delivery Method Room Air Room Air BMI result Body Mass Index 29.7 vital signs stable, afebrile General: Well appearing, in no acute distress. Skin: Warm, dry, intact. No rashes or lesions. Head: Normocephalic, atraumatic. EENT: Hearing is intact b/l. Conjunctiva clear. PERRLA. EOM intact. Moist mucous membranes.?multiple dental caries/poor dentition. posterior oropharynx erythematous, no tonsilar edema or exudates, no peritonsilar masses, uvula midline, controlling secretions. + pain on manipulation of left pinna. No protrusion of the auricle. No mastoid tenderness, fluctuance, warmth. Left EAC erythematous, no edema or discharge. TM intact with effusion, erythematous, and bulging. + No pain on manipulation of right pinna or tragus. No protrusion of the auricle. No mastoid tenderness, fluctuance, warmth. Right EAC without erythema, edema or discharge. TM intact without erythema, effusion, or bulging. Neck: Supple without LAD. no anterior neck swelling. Cardiac: Chest wall symmetric. RRR Lungs: Normal respiratory effort without accessory muscle use. CTA bilaterally Neuro: AOx3. Normal speech. Ambulating with steady gait. Course Course Course Narrative: Rapid medical examination performed in triage by Suze Brambila PA-C: Patient is a 40 year old assigned female at presenting to the emergency department with ear + jaw pain and feeling generally unwell. Detailed physical exam and review of systems are deferred to the concrete bucket unloader. Swabs ordered. Patient placed back in the waiting room pending room availability and results. Reevaluation(s) Reevaluation #1: negative covid, flu, strep. her exam is concerning for otitis media although left EAC looks quite erythematous as well. Plan to start patient on po and otic abx. she tells me she cannot take augmentin as amoxicillin makes me projectile vomit . Doxycycline and ciprodex ear drop sent to pharmacy. Patient has remained stable throughout ED visit today. Discussed worrisome signs and symptoms and when to return to the ED. All questions answered at this time. Patient is agreeable with disposition and stable for discharge. Medications Administered Discontinued Medications Generic Name Dose Route Start Last Admin Trade Name Elmer PRN Reason Stop Dose Admin Ketorolac Tromethamine 30 mg 08/27/25 16:24 08/27/25 16:44 Ketorolac Tromethamine 30 Mg/Ml Vial IM 08/27/25 16:25 30 mg ONCE ONE Administration Medical Decision Making Medical Decision Making [facility] Narrative: 40 year old female presents to the ED for evaluation of left ear pain x3 days. vitals are stable, afebrile. she is generally well appearing, in NAD. on exam, Moist mucous membranes.?multiple dental caries/poor dentition. posterior oropharynx erythematous, no tonsilar edema or exudates, no peritonsilar masses, uvula midline, controlling secretions. there is pain on manipulation of left pinna. No protrusion of the auricle. No mastoid tenderness, fluctuance, warmth. Left EAC erythematous, no edema or discharge. TM intact with effusion, erythematous, and bulging. neck is supple without LAD. no anterior neck swelling. Differential diagnosis includes otitis media, otitis externa, strep throat, viral syndrome, sinusitis. lower suspicion for dental abscess/infection. unlikely malignant otitis externa, mastoiditis, ludwigs angina, mono, STOREROOM CLERK, retropharyngeal abscess, epiglottitis. Plan for viral/strep swabs, pain control. Differential Diagnosis Differential Diagnoses: The differential diagnosis associated with the presentation includes as above. Admission/Observation not indicated Lab Data [facility] Lab Attestation statement: I reviewed the patient's lab results. as above. Labs: Lab Results 08/27/25 Range/Units 14:24 COVID-19 (HARLAN) Negative (Negative) COVID-19 Clin Com See Note Influenza Type A (ZARI) Negative (Negative) Influenza Type B (ZARI) Negative (Negative) Influenza A & B Note See Note External Record Review External record reviewed: Inpatient record Prescription Management I considered prescription management with: Pain Medication and Antibiotic Social Determinants Patient?s care significantly limited by Social Determinants of Health including: Other Social Determinant of Health Critical Care Time Critical Care Time Critical Care Time: No Discharge Plan Discharge Clinical Impression: Otitis media Patient Disposition: Home, Self-Care Instructions: Ear Infection (ED) Additional Instructions: You presented to the ED today for evaluation of ear pain. You have an inner ear infection, called otitis media. see home care instructions. Treatment for this is with antibiotics. Doxycycline is an antibiotic that has been sent to the pharmacy for treatment. Take this to completion. I am also sending an antibiotic/steroid ear drop to your pharmacy. Take tylenol/ motrin for fevers. Please follow up with PCP/ monument carver. Return with new or worsening symptoms. In the case of an emergency call 911. You should also follow up with a dentist. You have been provided with a referral to [facility]. They are currently taking new clients. Call them to make an appointment. They will not call you. Return with new or worsening symptoms. In the case of an emergency call 911. [facility] DENTAL: [phone] [address] [facility] [address] Prescriptions: New ciprofloxacin-dexamethasone 0.3-0.1 % drops,suspension 4 drp otic (ear) left BID 7 Days Qty: 7.5 0RF doxycycline hyclate 100 mg capsule 100 mg PO BID 7 Days Qty: 14 0RF No Action meclizine 25 mg tablet 25 mg PO TID Referrals: Physician,Unknown J [Primary Care Provider, Medical] Interventions: ED Discharge Assessment Last Done: 08/27/25 16:53 Discharge Date/Time: 08/27/25 16:54 Print Language: South African
[2025-08-27 14:43] LABS: COVID-19 Test Negative (Negative); IDNOW Serial# 6674DD1D
[2025-08-27 14:48] LABS: IDNOW Serial# 08D9AD1C; Influenza B2 Negative (Negative)
[2025-08-27 16:53] VITALS: BP 125/63; PULSE 86; RESP 16; TEMP 36.6; O2SAT 98
--- OUTSIDE RECORDS SUMMARY | 2025-08-27 17:03 | XMS_ITS | Encounter Summary ---
Author Organization [employer] Address [address] [facility] 7 [place] [address] Care Team Providers Care Channel Development Director Name Role Phone Symone Blankenship Primary Care Provider [phone] Leanne Bowie NP Primary Care Provider [phone] Reason for Visit * Reason Onset Date Comments Nurse Triage 05/30/2024 Encounter Details Date Type Department Care Team ([facility] st Contact Info) Description 05/30/2024 Telephone [facility] MED[facility] [address] [place] [address] Symone Blankenship FNP [address] [place] [address] Nurse Triage Social History Tobacco Use Types Packs/Day Years [...] with others, in a hotel, in a fci, living outside on the street, on a [...] AM EDT documented as of this encounter Miscellaneous Notes * Telephone Encounter - Sue Clark RN - 05/30/2024 3:54 PM EDT Triage call Pt reports earache in left ear which started several days ago as just pressure in the ear. Pt reports a very sharp pain in the ear which comes and goes. Neg for drainage, fever, redness, swelling out side the ear. Advised Pt to come to [facility] today. Pt agrees with disposition. Pt insuranceis changed Pt reports [place] C3. Call to [place] in insurance confirms this. Protocol Used: Earache (Adult) Protocol-Based Disposition: See in Office or Video Visit Today or Tomorrow Positive Triage Questions: * All other earaches (Exceptions: Earache lasting < 1 hour, and earache from air travel.) * Patient wants to be seen * All higher-acuity triage questions were negative Care Advice Discussed: * Pain Medicines * Pain Medicines - Extra Notes and Warnings * Reasons To Call Back - Earache last more than 1 hour - High fever, severe headache, or stiff neck occurs - You become worse * Telephone Encounter - Clay Pichardo - 05/30/2024 3:38 PM EDT Symptom: Earache Outcome: Schedule an urgent appointment (within 1 hour) or talk to a nurse or provider soon Reason: Severe pain now The caller accepted this outcome documented in this encounter Plan of Treatment Not on file documented as of this encounter Visit Diagnoses Not on filedocumented in this encounter Additional Health Concerns Assessment Noted Time PHQ-9 Depression Total Score: 17 024 9:17 AM EST documented as of this encounter Care Teams Channel Development Director Relationship Specialty Start Date End Date Symone Blankenship FNP [address] [place] [address] PCP - General Family Medicine 09/21/22 06/26/24 Leanne Bowie NP [address] [place] [address] PCP - General Family Medicine 06/27/24 documented as of this encounter
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
--- OUTSIDE RECORDS SUMMARY | 2025-08-27 17:03 | XMS_ITS | Encounter Summary ---
Author Organization [employer] Address [address] [facility] 7t [place] [address] Care Team Providers Care Appraiser Name Role Phone Leanne Bowie SUBMARINE WORKER Primary Care Provider Reason for Visit * Reason Onset Date Comments Nurse Triage 08/27/2025 Encounter Details Date Type Department Care Team ([facility] st Contact Info) Description 08/27/2025 Telephone [facility] MEDICINE [address] [place], [place] [phone] Leanne Bowie NP [address] [place] [address] Nurse Triage Social History Tobacco Use Types [...] with others, in a hotel, in a alf, living outside on the street, on a [...] encounter Miscellaneous Notes * Telephone Encounter - Lisa Vaca RN - 08/27/2025 1:55 PM EST Telephone call returned to pt to triage. Pt reports she is currently at the ED. Pt advised to follow up upon discharge. * Telephone Encounter - Dwight Cruz - 08/27/2025 12:40 PM EST Symptoms: Jaw Pain - Not From Injury, Sore Throat Outcome: Schedule an urgent appointment (within 4 hours) or talk to a nurse or provider soon Reason: Swelling of the face Please contact pt at [phone]. documented in this encounter Plan of Treatment Not on file documented as of this encounter Visit Diagnoses Not on filedocumented in this encounter Additional Health Concerns Assessment Noted Time PHQ-9 Depression Total Score: 16 025 10:19 AM EDT documented as of this encounter Care Teams Appraiser Relationship Specialty Start Date End Date Leanne Bowie NP [address] [place] [address] PCP - General Family Medicine 06/27/24 documented as of this encounter
--- OUTSIDE RECORDS SUMMARY | 2025-08-27 17:03 | XMS_ITS | Encounter Summary ---
Author Organization [employer] Address [address] [facility] 7 [place] [address] Care Team Providers Care Inhalation Therapy Teacher Name Role Phone Symone Blankenship Primary Care Provider [phone] Leanne Bowie NP Primary Care Provider [phone] Reason for Visit * Reason Onset Date Comments Nurse Triage 06/20/2024 Encounter Details Date Type Department Care Team ([facility] st Contact Info) Description 06/20/2024 Telephone [facility] MEDICINE [address] [place] [address] Symone Blankenship FNP [address] [place] [address] Nurse Triage Social History Tobacco Use Types [...] encounter Miscellaneous Notes * Telephone Encounter - Aparna Linder LPN - 06/20/2024 12:21 PM EDT Triage call returned to patient who reports painful flare of ganglion cyst in left wrist. Patient reports pain increased with movement and is requesting left wrist brace as previously ordered. Patient reports that she is not taking any OTC medication for discomfort and is just seeking brace NEIL asthat prevents her bending wrist and aids in reducing discomfort from cyst. Patient reports that sheis unable to take Tylenol or Ibuprofen for discomfort due to allergies. Team tasked to follow with PCP for any OTC recommendations. DME request previously sent for patient per notes. Protocol Used: Hand and Wrist Pain (Adult) Protocol-Based Disposition: See in Office or Video Visit within 2 Weeks Override (Final) Disposition: Discuss with PCP and Callback by Nurse Today Override Reason: Prescription issue Override Notes: Patient calling for left wrist brace previously ordered due to ganglion cyst Video visit not offered Positive Triage Question: * Hand or wrist pain is a chronic symptom (recurrent or ongoing AND lasting > 4 weeks) * All higher-acuity triage questions were negative Care Advice Discussed: * Reasons To Call Back - Moderate pain (e.g., interferes with normal activities) lasts more than 3 days - Mild pain lasts more than 7 days - Signs of infection occur (e.g., spreading redness, warmth, fever) - You become worse * Telephone Encounter - Chana Faust - 06/20/2024 12:10 PM EDT Symptom: Hand or Wrist Pain - Not From Injury Outcome: Schedule an urgent appointment (within 1 hour) or talk to a nurse or provider soon Reason: Can't use the hand normally The caller accepted this outcome documented in this encounter Plan of Treatment Not on file documented as of this encounter Visit Diagnoses Not on filedocumented in this encounter Additional Health Concerns Assessment Noted Time PHQ-9 Depression Total Score: 17 024 9:17 AM EST documented as of this encounter Care Teams Inhalation Therapy Teacher Relationship Specialty Start Date End Date Symone Blankenship FNP [address] [place] [address] PCP - General Family Medicine 09/21/22 06/26/24 Leanne Bowie NP [address] [place] [address] PCP - General Family Medicine 06/27/24 documented as of this encounter
--- OUTSIDE RECORDS SUMMARY | 2025-08-27 17:03 | XMS_ITS | Encounter Summary ---
Author Organization [employer] Address [address] [facility] 7t [place] [address] Care Team Providers Care Cable Installation Manager Name Role Phone Symone Blankenship Primary Care Provider [phone] Leanne Bowie NP Primary Care Provider [phone] Reason for Visit * Reason Onset Date Comments Triage pt 1 out of 4 07/15/2023 Encounter Details Date Type Department Care Team ([facility] st Contact Info) Description 07/15/2023 Telephone [facility] MEDICINE [address] [place] [address] Symone Blankenship FNP [address] [place] [address] Triage pt 1 out of 4 Social History Tobacco Use Types Packs/Day Years Used Date Smoking Tobacco: Every Day Cigarettes Alcohol Use Standard Drinks/Week Comments Not Asked 0 (1 standard drink = 0.6 oz pur e alcohol) Comments Unknown Sex and Gender Information Value Date Recorded Sex Assigned at Female 08/24/2022 10:18 AM EDT Legal Sex Female 10:18 AM EDT Gender Identity Female 08/24/2022 10:18 AM EDT Sexual Orientation Straight 08/24/2022 10 :18 AM EDT documented as of this encounter Miscellaneous Notes * Telephone Encounter - Sue Clark RN - 07/15/2023 9:32 AM EDT Triage call Pt reports cough, nasal congestion, bodyaches, headache and some mild SOB. Pt reports this started 2 days ago and Pt has home tested for covid x3 with neg results. Pt reports rib pain from coughing so much. Pt is producing white/clear sputum, has tactile fever no thermometer and has nausea no vomiting. Pt reports right earache. Pt is not eating or drinking well feels immediate nausea when trying to do either. Pt is advised to come to [facility] today to be seen by provider and Pt agrees. Home care reviewed, Pt is encouraged to drink warm liquids if possible , use hot shower steam if coughing spell. Pt agrees to try. Protocol Used: Cough (Adult) Protocol-Based Disposition: See in Office or Video Visit Today Video visit not offered Positive Triage Question: * Severe coughing spells (e.g., whooping sound after coughing, vomiting after coughing) * All higher-acuity triage questions were negative Care Advice Discussed: * Reassurance and Education - Cough * Cough Medicines * Coughing Spells * Prevent Dehydration * Reasons To Call Back - Difficulty breathing - Cough lasts more than 3 weeks - Fever lasts more than 3 days - You become worse * Telephone Encounter - Chana Faust - 07/15/2023 8:38 AM EDT Symptom: Cough, runny nose , body ache , headache and little shortness of breath Outcome: Schedule an appointment to be seen within 24 hours Reason: Caller denied all higher acuity questions The caller accepted this outcome documented in this encounter Plan of Treatment Not on file documented as of this encounter Visit Diagnoses Not on filedocumented in this encounter Care Teams Cable Installation Manager Relationship Specialty Start Date End Date Symone Blankenship FNP [address] [place] [address] PCP - General Family Medicine 09/21/22 06/26/24 Leanne Bowie NP [address] [place] [address] PCP - General Family Medicine 06/27/24 documented as of this encounter
== END 2025-08-27 16:54 | disposition home or self-care (01) ==
PROVIDERS: Physician Assistant Medical; Emergency Provider Emergency Medicine
DX: H66.92 Otitis media, unspecified, left ear (principal); J02.9 Acute pharyngitis, unspecified; Z03.818 Encounter for observation for suspected exposure to other biological agents ruled out; Z87.891 Personal history of nicotine dependence
CPT/HCPCS: 87502; 87635; 96372; 99283; 99284; J1885

== ENCOUNTER 2025-08-31 14:06 | Outpatient (REF) | payer OTHER, SELFPAY ==
--- OUTSIDE RECORDS SUMMARY | 2025-08-31 15:55 | XMS_ITS | Encounter Summary ---
Author Organization [facility] Address [address] [place] [address] Care Team Providers Care Marble Rubber Name Role Phone Community, Pcp Primary Care Provider Unavailabl e Encounter Details Date Type Department Care Team Description 10/12/2018 Release of Information Medical Records [address] [place] [id number] Abstract, Provider Social History Tobacco Use Types Packs/Day Years Used Date Smoking Tobacco: Every Day Cigarettes 0.3 20 Started: 02/22/1998 Smokeless Tobacco: Never Alcohol Use Standard Drinks/Week Comments No 0 (1 standard drink = 0.6 oz pur e alcohol) rarely Sex Assigned at Date Recorded Not on file documented as of this encounter Plan of Treatment Not on file documented as of this encounter Visit Diagnoses Not on filedocumented in this encounter Care Teams Marble Rubber Relationship Specialty Start Date End Date Community, Pcp PCP - General 11/23/07 documented as of this encounter
--- OUTSIDE RECORDS SUMMARY | 2025-08-31 15:55 | XMS_ITS | Encounter Summary ---
Author Organization [facility] Address [address] [place] [address] Care Team Providers Care County Extension Agent Name Role Phone Community, Pcp Primary Care Provider Unavailabl e Reason for Visit * Reason Onset Date Comments Medication 10/19/2018 Encounter Details Date Type Department Care Team Description 10/19/2018 Telephone OBGYN - [facility] [address] [place], [place] [phone] Tia Wong MD [address] [place] [id number] Medication Social History Tobacco Use Types Packs/Day Years Used Date Smoking Tobacco: Every Day Cigarettes 0.3 20 Started: 02/22/1998 Smokeless Tobacco: Never Alcohol Use Standard Drinks/Week Comments No 0 (1 standard drink = 0.6 oz pur e alcohol) rarely Sex Assigned at Date Recorded Not on file documented as of this encounter Miscellaneous Notes * Telephone Encounter - Naomy Ghotra M.A. - 10/19/2018 3:56 PM EST Please advise.-MO * Telephone Encounter - Sheela Wyatt - 10/19/2018 3:41 PM EST Who is calling? A pharmacist: [facility] Name of the medication - What is the specific problem or interaction? Patient requests new rx: can we use multi-dhasoft gel. [facility] ([phone]). Please send rx for this so we can order for pt. This is covered by imsurance. If the patient is having a problem with taking the med - how long has the problem been going on? N/A documented in this encounter Plan of Treatment Not on file documented as of this encounter Visit Diagnoses Not on filedocumented in this encounter Care Teams County Extension Agent Relationship Specialty Start Date End Date Community, Pcp PCP - General 11/23/07 documented as of this encounter
--- OUTSIDE RECORDS SUMMARY | 2025-08-31 15:55 | XMS_ITS | Clinical Summary ---
Author Organization [employer] Address [address] [place] [address] 7t [place] [address] Care Team Providers Care Architectural Project Manager Name Role Phone Leanne Bowie TRICIA Primary Care Provider [phone] Allergies Active Allergy Reactions Criticality Noted Date [...] she want to at this time - [facility] services declined. Pt reports during telehealth OBI visit that she is not currently engaged with mental health services nor does she want to at this time - [facility] services declined. History of placenta abruption 03/01/2024 Social problem 03/01/2024 Tobacco use during 03/01/2024 Dizziness 03/01/2024 Assessment & Plan (03/01/2024 1:06 PM EDT): With no acute findings on exam, orthostatics neg, likely vertigo -provided reassurance -check basic labs -advised stay well hydrated -trial meclizine prn -she declines initiation of allergy meds -encouraged schedule optho eval and update Rx -referred to PT -advised contact [facility] if sx change or worsen Benign [...] issues.. Mirta has been living in a hotel/penitentiary for the last month with her children. [...] intervention , Patient to reach out to [facility] team as needed, Patient to engage in [...] issues.. Mirta has been living in a hotel/penitentiary for the last month with her children. [...] intervention , Patient to reach out to [facility] team as needed, Patient to engage in [...] services declined. 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 Hypothyroid 01/24/2015 [...] Date Diagnosed Date Resolved Date Substance abuse ([facility]) 03/14/2021 Overview (07/15/2023): Problem added by Discern Expert Encounters Date Type Department Care Team Description 08/31/2025 Telephone [facility] MEDICINE [address] [place] [address] Leanne Bowie NP Lab Orders 08/27/2025 Telephone [facility] MEDICINE [address] [place] [address] Leanne Bowie NP Nurse Triage 07/06/2025 Telephone [facility] PEDS [address] [place] [address] Leanne Bowie NP Chart Prep from Last 3 Months Immunizations Immunization Administration [...] with others, in a hotel, in a penitentiary, living outside on the street, on a [...] 05/25/2025 9:38 AM EDT Plan of Treatment Upcoming Encounters Date Type Department Care Team (Late st Contact Info) Description 09/07/2025 10:00 AM EST Office Visit [facility] MEDICINE [address] [place] [address] Prachi Kaiser, TRICIA [address] [place], [place] [phone] Health Maintenance Due Date Last Done Comments [...] 1:41 PM EDT) Triglycerides 91 <150 mg/dL [facility] Comment:Desirable Triglyceri de: less than 150 mg/dLBorderline High Triglyceride 150-199 mg/dLHigh Triglyceride: 200-499 mg/dLVery High Triglyceride: greater than or equal to 5OO mg/dL Cholesterol 138 <200 mg/dL [facility] Comment:Desirable Cholestero l: less than 200 mg/dLBorderline High Cholesterol: 200-239 mg/dLHigh Cholesterol: greater than 239 mg/dL LDL Cholesterol Calculated 76 <100 mg/dL [facility] Comment:Desirable LDL: less than 100 mg/dLNear Optimal/Above Optimal LDL: 110- 129 mg/dLBorderline High LDL: 130-159 mg/dLHigh LDL: 160-189 mg/dLVery High LDL: greater than or equal to 190 mg/dL HDL Cholesterol 44 >40 mg/dL [facility] Comment:Desirable HDL: great er than 40 mg/dL Note: This HDL assay may give artificially low results in patients with liver disease. Blood Venous blood specimen / Unknown 03/01/2024 1:41 PM EDT 03/01/2024 4:15 PM EDT us Shari Swartz DO LAB BLOOD ORDERABLES Final R esult [facility] [address] [place] [phone] from Last 3 Months or Most Recently Relevant to Health Maintenance Insurance [facility] STANDARD [facility] < [address] [place] [phone] Care Teams Architectural Project Manager Relationship Specialty Start Date End Date Leanne Bowie NP [address] [place] [address] PCP - General Family Medicine 06/27/24
--- OUTSIDE RECORDS SUMMARY | 2025-08-31 15:55 | XMS_ITS | Encounter Summary ---
Author Organization [employer] Address [address] [facility] 7t [place] [address] Care Team Providers Care Commercial Sales Director Name Role Phone Leanne Bowie NP Primary Care Provider [phone] Reason for Visit * Reason Onset Date Comments Lab Orders 08/31/2025 Encounter Details Date Type Department Care Team ([facility] st Contact Info) Description 08/31/2025 Telephone [facility] MEDICINE [address] [place], [place] [phone] Leanne Bowie NP [address] [place] [address] Lab Orders Social History Tobacco Use Types Packs/Day Years [...] with others, in a hotel, in a correction, living outside on the street, on a [...] Telephone Encounter - Lisa Vaca RN - 08/31/2025 12:03 PM EST Pt requesting TB test for work. Ordered. Informed usually receive results within 24-48hrs. Can access on Donde or can come in to pickle solution maker from HIM once results are completed. * Telephone Encounter - Zaira Han - 08/31/2025 11:28 AM EST Tc from pt requesting an TB test Contact pt at [phone] documented in this encounter Plan of Treatment Upcoming Encounters Date Type Department Care Team (Late st Contact Info) Description 09/07/2025 10:00 AM EST Office Visit [facility] MEDICINE [address] [place] [address] Prachi Kaiser NP [address] [place] [address] Scheduled Orders Name Type Priority Associated Diagnoses Orde r Schedule T-SPOT .TB Lab Routine Screening for tuberculosis Expected: 08/31/2025 (Approximate), Expires: 08/31/2026 documented as of this encounter Visit Diagnoses Diagnosis Screening for tuberculosis Screening examination for pulmonary tuberculosis documented in this encounter Additional Health Concerns Assessment Noted Time PHQ-9 Depression Total Score: 16 08/01/2 025 10:19 AM EDT documented as of this encounter Care Teams Commercial Sales Director Relationship Specialty Start Date End Date Leanne Bowie NP [address] [place] [address] PCP - General Family Medicine 06/27/24 documented as of this encounter
--- OUTSIDE RECORDS SUMMARY | 2025-08-31 15:55 | XMS_ITS | Encounter Summary ---
Author Organization [employer] Address [address] [facility] 7t [place] [address] Care Team Providers Care Gum Sprayer Name Role Phone Symone Blankenship Primary Care Provider [phone] Leanne Bowie NP Primary Care Provider [phone] Reason for Visit * Reason Onset Date Comments Nurse Triage 05/30/2024 Encounter Details Date Type Department Care Team ([facility] st Contact Info) Description 05/30/2024 Telephone [facility] MEDICINE [address] [place] [address] Symone Blankenship FNP [address] [place] [address] Nurse Triage Social History Tobacco Use Types [...] with others, in a hotel, in [place] [facility], living outside on the street, on a [...] the ear. Advised Pt to come to [facility] today. Pt agrees with disposition. Pt insuranceis changed Pt reports [place]. Call to [place] in insurance confirms this. Protocol Used: Earache [...] Description 09/07/2025 10:00 AM EST Office Visit [facility] MEDICINE [address] [place] [address] Prachi Kaiser NP [address] [place] [address] documented as of this encounter Visit Diagnoses Not on filedocumented in this encounter Additional Health Concerns Assessment Noted Time PHQ-9 Depression Total Score: 17 024 9:17 AM EST documented as of this encounter Care Teams Gum Sprayer Relationship Specialty Start Date End Date Symone Blankenship FNP [address] [place] [address] PCP - General Family Medicine 09/21/22 06/26/24 Leanne Bowie NP [address] [place] [address] PCP - General Family Medicine 06/27/24 documented as of this encounter
--- OUTSIDE RECORDS SUMMARY | 2025-08-31 15:56 | XMS_ITS | Encounter Summary ---
Author Organization [email or web address] Address [address] [facility] 7t [place] [address] Care Team Providers Care Peoplesoft Financial Developer Name Role Phone Symone Blankenship Primary Care Provider [phone] Leanne Bowie NP Primary Care Provider [phone] Reason for Visit * Reason Onset Date Comments Nurse Triage 06/20/2024 Encounter Details Date Type Department Care Team ([facility] st Contact Info) Description 06/20/2024 Telephone [facility] MEDICINE [address] [place] [address] Symone Blankenship FNP [address] [place] [address] Nurse Triage Social History Tobacco Use Types [...] with others, in a hotel, in a jail, living outside on the street, on a [...] 10:00 AM EST Office Visit [facility] MEDICINE [address] [place] [address] Prachi Kaiser NP [address] [place] [address] documented as of this encounter Visit Diagnoses Not on filedocumented in this encounter Additional Health Concerns Assessment Noted Time PHQ-9 Depression Total Score: 17 024 9:17 AM EST documented as of this encounter Care Teams Peoplesoft Financial Developer Relationship Specialty Start Date End Date Symone Blankenship FNP [address] [place] [address] PCP - General Family Medicine 09/21/22 06/26/24 Leanne Bowie NP [address] [place] [address] PCP - General Family Medicine 06/27/24 documented as of this encounter
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
--- OUTSIDE RECORDS SUMMARY | 2025-08-31 15:56 | XMS_ITS | Encounter Summary ---
Author Organization [email or web address] Address [address] [facility] [address] [place] [address] Care Team Providers Care Automotive Tire Testing Supervisor Name Role Phone Leanne Bowie POLITICAL RESEARCH SCIENTIST Primary Care Provider [phone] Reason for Visit * Reason Onset Date Comments Nurse Triage 08/27/2025 Encounter Details Date Type Department Care Team ([facility] st Contact Info) Description 08/27/2025 Telephone [facility] MEDICINE [address] [place] [address] Leanne Bowie NP [address] [place] [address] Nurse Triage Social History Tobacco Use Types [...] with others, in a hotel, in a detention, living outside on the street, on a [...] of the face Please contact pt at [phone]. documented in this encounter Plan of Treatment Upcoming Encounters Date Type Department Care Team (Late st Contact Info) Description 09/07/2025 10:00 AM EST Office Visit [facility] MEDICINE [address] [place] [address] Prachi Kaiser NP [address] [place] [address] documented as of this encounter Visit Diagnoses Not on filedocumented in this encounter Additional Health Concerns Assessment Noted Time PHQ-9 Depression Total Score: 16 025 10:19 AM EDT documented as of this encounter Care Teams [employer] Supervisor Relationship Specialty Start Date End Date Leanne Bowie NP [address] [place] [id number] PCP - General Family Medicine 06/27/24 documented as of this encounter
--- OUTSIDE RECORDS SUMMARY | 2025-08-31 15:56 | XMS_ITS | Encounter Summary ---
Author Organization [employer] Address [address] [facility] [address] [place] [address] Care Team Providers Care Power Electronics Engineer Name Role Phone Symone Blankenship Primary Care Provider [phone] Leanne Bowie NP Primary Care Provider [phone] Reason for Visit * Reason Onset Date Comments Triage pt 1 out of 4 07/15/2023 Encounter Details Date Type Department Care Team ([facility] st Contact Info) Description 07/15/2023 Telephone [facility] MEDICINE [address] [place] [address] Symone Blankenship FNP [address] [place] [address] Triage pt 1 out of 4 Social [...] either. Pt is advised to come to [facility] today to be seen by provider [...] Description 09/07/2025 10:00 AM EST Office Visit [facility] MEDICINE [address] [place] [address] Prachi Kaiser NP [address] [place] [address] documented as of this encounter Visit Diagnoses Not on filedocumented in this encounter Care Teams Power Electronics Engineer Relationship Specialty Start Date End Date Symone Blankenship FNP [address] [place] [id number] PCP - General Family Medicine 09/21/22 06/26/24 Leanne oBwie NP [address] [place] [address] PCP - General Family Medicine 06/27/24 documented as of this encounter
[2025-09-03 09:19] LABS: TS Negative Control Passed; TS Panel A 0; TS Panel B 0; TS Positive Control Passed; TSpotTB Negative (Negative)
== END 2025-08-31 14:07 | disposition home or self-care (01) ==
LOC: HO.HHCL 14:06
PROVIDERS: PCP Nurse Practitioner Family; Visit Provider Nurse Practitioner Family
DX: Z11.1 Encounter for screening for respiratory tuberculosis (principal)
CPT/HCPCS: 36415; 86481

== ENCOUNTER 2025-09-07 14:50 | Outpatient (REF) | payer OTHER, SELFPAY ==
[2025-09-08 10:24] LABS: Bacterial Vaginosis PCR POSITIVE (Negative); Candida Group PCR DETECTED (Not Detect); Candida glab krusei PCR NOT DETECTED (Not Detect); Trichomonas vaginalis PCR NOT DETECTED (Not Detect)
[2025-09-08 10:46] LABS: CT PCR NOT DETECTED (Not Detect.); NG PCR NOT DETECTED (Not Detect.)
== END 2025-09-07 14:51 | disposition home or self-care (01) ==
LOC: HO.HHCLNP 14:50
PROVIDERS: Visit Provider Internal Medicine
DX: N89.8 Other specified noninflammatory disorders of vagina (principal); Z20.2 Contact with and (suspected) exposure to infections with a predominantly sexual mode of transmission
CPT/HCPCS: 81515; 87491; 87591

== ENCOUNTER 2025-09-12 09:11 | Outpatient (REF) | payer OTHER, SELFPAY ==
--- OUTSIDE RECORDS SUMMARY | 2025-09-07 10:00 | XMS_ITS | Encounter Summary ---
Author Organization [employer] Address [address] [facility] [address] [place] [address] Care Team Providers Care Skiving Machine Operator Name Role Phone Leanne Bowie TRICIA Primary Care Provider [phone] Encounter Details Date Type Department Care Team (Latest Contact Info) Description 09/07/2025 10:00 AM EST Office Visit [facility] [address] [place], [place] [phone] Lilliam Carrion MD [address] [place], [place] [phone] Hypothyroidism, unspecified type (Primary Dx); Vaginal discharge; Autoimmune thrombocytopenia (CMS/HCC) ([facility]); Bipolar affective disorder, remission status unspecified (CMS/HCC) ([facility]); Dietary counseling; Exercise counseling; Routine screening for STI (sexually transmitted infection) Social History Tobacco Use Types Packs/Day Years Used Date Smoking Tobacco: Every Day Cigarettes Passive Smoke Exposure: Current Tobacco Cessation:Ready to Q uit: Not Asked; Counseling Given: Not Answered Alcohol Use Standard Drinks/Week Comments Not Asked 0 (1 standard drink = 0.6 oz pur e alcohol) Depression Answer Date Recorded Patient Health Questionnaire-9 Score 15 09/07/2025 Patient Health Questionnaire-9 Score 15 09/07/2025 Last PHQ-9: Questionnaire Data Not on file 1 11/07/2024 Housing Stability Answer Date Recorded What is your housing situation today? I do not have housing (Staying with others, in a hotel, in a senior care, living outside on the street, on a beach, in a car, or in a park 09/07/[address] you li ve. Do you have problems with any of the following? I am not sure 09/07/2025 Food Insecurity Answer Date Recorded Within the past 12 months, y ou worried that your food would run out before you got money to buy more: Sometimes True 2024 Within the past 12 months,th e food you bought just didn't last and you didn't have enough money to get more: Sometimes True 09/07/2025 Transportation Answer Date Recorded In the past 12 months, has l ack of transportation kept you from medical appts, meetings, work or from getting things needed for daily living? Yes, it has kept me from medical appointments or getting medications. 09/07/2025 Utilities Answer Date Recorded In the past 12 months, has t he [employer], gas, oil or water company threatened to shut off services in your home? I am not sure 09/07/2025 Depression Answer Date Recorded Patient Health Questionnaire-2 Score 4 09/07/2025 Internet Access Answer Date Recorded Internet Access Q1 Yes 09/07/2025 Internet Access Q2 Not on file 09/07/2025 Comments Unknown Sex and Gender Information Value Date Recorded Sex Assigned at Female 08/24/2022 10:18 AM EDT Legal Sex Female 10:18 AM EDT Gender Identity Female 08/24/2022 10:18 AM EDT Sexual Orientation Straight 08/24/2022 10 :18 AM EDT documented as of this encounter Last Filed Vital Signs Vital Sign Reading Time Taken Comments Blood Pressure 108/70 09/07/2025 10:09 AM EST Pulse 71 09/07/2025 10:09 AM EST Temperature 36.6 C (97.8 F) 09/07/2025 10:09 AM EST Respiratory Rate 16 09/07/2025 10:09 AM EST Oxygen Saturation 98% 09/07/2025 10:09 AM EST Inhaled Oxygen Concentration - - Weight 64.5 kg (142 lb 4 oz) 09/07/2025 10:09 AM EST Height 159.3 cm (5' 2.7 ) 09/07/2025 10:09 AM ES T Body Mass Index 25.44 09/07/2025 10:09 AM EST documented in this encounter Functional Status * Over the past 2 weeks, how often have you been bothered by any of the following problems? Question Answer Date of Assessment Author Patient Health Questionnaire-2 Score 4 09/07/2025 10:48 AM EST Eneida Tineo MA * Little interest or pleasure in doing things Answer Date of Assessment Author More than half the days 09/07/2025 10:48 AM Eneida Kaplan MA * Feeling down, depressed, or hopeless Answer Date of Assessment Author More than half the days 09/07/2025 10:48 AM Eneida Kaplan MA * Trouble falling or staying asleep, or sleeping too much Answer Date of Assessment Author Nearly every day 09/07/2025 10:48 AM Eneida Garnica MA * Feeling tired or having little energy Answer Date of Assessment Author Several days 09/07/2025 10:48 AM Eneida Hayes [place], [place] * Poor appetite or overeating Answer Date of Assessment Author Several days 09/07/2025 10:48 AM Eneida Hayes [place], [place] * Feeling bad about yourself - or that you are a failure or have let yourself or your family down Answer Date of Assessment Author Nearly every day 09/07/2025 10:48 AM Eneida Garnica MA * Trouble concentrating on things, such as reading the newspaper or watching television Answer Date of Assessment Author Several days 09/07/2025 10:48 AM Eneida Hayes [place], [place] * Moving or speaking so slowly that other people could have noticed? Or the opposite - being so fidgety or restless that you have been moving around a lot more than usual. Answer Date of Assessment Author Several days 09/07/2025 10:48 AM Eneida Hayes [place], [place] * Thoughts that you would be better off or hurting yourself in some way Answer Date of Assessment Author Several days 09/07/2025 10:48 AM Eneida Hayes [place], [place] * Patient Health Questionnaire-9 Score Answer Date of Assessment Author 15 09/07/2025 10:48 AM Eneida Hayes [place], [place] * Over the last 2 weeks, how often have you been bothered by any of the following problems? Question Answer Date of Assessment Author Feeling nervous, anxious, or on edge 3 09/07/2025 10:50 AM Eneida Kaplan MA Not being able to stop or control worrying 3 09/07/2025 10:50 AM Eneida Kaplan MA Worrying too much about different things 2 09/07/2025 10:50 AM Eneida Kaplan MA Trouble relaxing 2 09/07/2025 10:50 AM Eneida Kaplan MA Being so restless that it is hard to sit still 2 09/07/2025 10:50 AM Eneida Kaplan MA Becoming easily annoyed or irritable 2 09/07/2025 10:50 AM Eneida Kaplan MA Feeling afraid as if something awful might happen 2 09/07/2025 10:50 AM Eneida Garnica MA LAURI-7 Total Score 16 09/07/2025 10:50 AM Eneida Kaplan MA * How difficult have these problems made it for you to do your work, take care of things at home, or get along with other people? Answer Date of Assessment Author Somewhat difficult 09/07/2025 10:48 AM Eneida Kaplan MA documented as of this encounter Progress Notes * Prachi Kaiser NP - 09/07/2025 10:00 AM EST Subjective: Mirta Hercules is a 40 y.o. female who presents to the office for a physical exam. PCP is Leanne Bowie. She is applying for a job as a [employer] Interim history: Reports she has not restarted her thyroid medication (TSH was 10.54 on 05/25/25). She has been off medication for over 1 year. Needs pap STI testing Vaccines (PCV, flu, covid) declined Current concerns: Rash on torso -started last week, but has been clearing up during the last 3 days. Possibly due to new lotion or doxycycline administered for ear infection. Problem List[1] Surgical History[2] Family History[3] Social History Living situation: lives with mom and brother Employment/Education: applying for [employer] job Diet/exercise: Substance use: marijuana daily -alcohol occasional -tobacco 1/3 pack per day Sexual activity: sexually active, no current partner Contraception: tubal ligation Mental health: Patient Health Questionnaire-9 Score: 16 (05/25/2025 10:19 AM) Patient Health Questionnaire-2 Score: 3 (05/25/2025 10:19 AM) Thoughts that you would be better off or hurting yourself in some way: Several days (05/25/2025 10:19 AM) LAURI-7 Total Score: 14 (05/25/2025 10:19 AM) Patient's last menstrual period was 08/30/2025 (approximate). Allergies[4] Review of Systems Constitutional: Negative for chills, diaphoresis, fatigue and fever. HENT: Negative for congestion, ear pain, hearing loss and sore throat. Eyes: Negative for pain and visual disturbance. Respiratory: Negative for cough, chest tightness and shortness of breath. Cardiovascular: Negative for chest pain, palpitations and leg swelling. Gastrointestinal: Negative for abdominal pain, blood in stool, constipation, diarrhea, nausea and vomiting. Genitourinary: Positive for vaginal discharge. Negative for difficulty urinating and dysuria. Vaginal itching with white off-smelling discharge Musculoskeletal: Negative for arthralgias, back pain, joint swelling and myalgias. Skin: Positive for rash. Mild erythema on lower back Neurological: Negative for dizziness, syncope, light-headedness and headaches. Hematological: Bruises/bleeds easily. Psychiatric/Behavioral: Negative for dysphoric mood. The patient is not nervous/anxious. Vitals: 09/07/25 1009 BP: 108/70 BP Location: Left arm Patient Position: Sitting BP Cuff Size: Adult Pulse: 71 Resp: 16 Temp: 97.8 ??F (36.6 ??C) TempSrc: Oral SpO2: 98% Weight: 142 lb 4 oz (64.5 kg) Height: 5' 2.7 (1.593 m) Physical Exam Vitals reviewed. HENT: Right Ear: Tympanic membrane, ear canal and external ear normal. Left Ear: Tympanic membrane, ear canal and external ear normal. Mouth/Throat: Mouth: Mucous membranes are moist. Pharynx: Oropharynx is clear. Eyes: Pupils: Pupils are equal, round, and reactive to light. Cardiovascular: Rate and Rhythm: Normal rate and regular rhythm. Pulses: Normal pulses. Heart sounds: Normal heart sounds. Pulmonary: Effort: Pulmonary effort is normal. Breath sounds: Normal breath sounds. Abdominal: General: Abdomen is flat. Bowel sounds are normal. Musculoskeletal: Right lower leg: No edema. Left lower leg: No edema. Lymphadenopathy: Cervical: No cervical adenopathy. Skin: General: Skin is warm and dry. Neurological: Mental Status: She is alert. Assessment & Plan Hypothyroidism, unspecified type Reports she has been off of her medication for over 1 year. Sent refill today. Advised to have TSH rechecked in 6 wks after taking levothyroxine as prescribed. Orders: levothyroxine (Synthroid, Levoxyl) 50 MCG tablet; Take 1 tablet (50 mcg) by mouth before breakfast. Vaginal discharge Reports itching with white discharge. This seems to occur after each menstrual cycle. Patient prefers to self-swab. Declines exam. Orders: Bacterial Vaginosis, Yeast and Trich; Future Chlamydia/N. 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 Patient confirms easy bruising. Denies bleeding gums. Platelet count 05/25/25 was 128 Bipolar affective disorder, remission status unspecified (CMS/HCC) (HCC) Patient is not on medication at this time. Declines services. Reports that she prefers not to socialize and is content with that. Dietary counseling Dietary Recommendations: Fruits, vegetables, whole grains, protein foods, and fat-free or low-fat dairy products are healthychoices. Eat different types of protein foods in your diet. This can include seafood, lean meats, poultry, beans, peas, lentils, nuts, seeds, soy products, and eggs. Limit foods and beverages higher in added sugars, saturated fat, and sodium. Exercise counseling Exercise Recommendations: At least 150 minutes of moderate-intensity physical activity per week, or an equivalent combinationof moderate- and vigorous-intensity activity Routine screening for STI (sexually transmitted infection) Orders: Hepatitis B Core Antibody, Total; Future Hepatitis B Surface Antibody, Qualitative; Future Hepatitis B surface antigen, EIA; Future Hepatitis C Antibody with Reflex to HCV, RNA, Quantitative, Real-Time PCR; Future HIV-1/2 Antigen and Antibodies, Fourth Generation, with Reflexes; Future Syphilis Screen; Future Routine Screening and Health Maintenance Optometry: Yes Dentist: No Referral placed Routine Cancer Screening Cervical CA: Advised to schedule pap Current Medications[5] Immunization History Administered Date(s) Administered Tdap 04/03/2012, 06/06/2020, 03/14/2021 Follow up in about 6 weeks (around 10/19/2025) for schedule pap smear and come back for labs. [facility] CAR PRE COOLER Attestation CAR PRE COOLER Resident Attestation: Patient was seen and evaluated by Prachi MARTINEZ , in collaboration with Lilliam Pascal MD who has reviewed my assessment and plan. I, Lilliam Pascal MD , have reviewed the resident's note and agree with the assessment &plan of care as documented above. 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 [4] Allergies Allergen Reactions Hydrocodone-Acetaminophen Wheezing Amoxicillin Codeine Hydrocodone Hydromorphone Other [5] Current Outpatient Medications Medication Sig Dispense Refill albuterol 108 (90 Base) MCG/ACT inhaler INHALE 2 PUFFS BY MOUTH EVERY 4 HOURS IF NEEDED 18 g 0 gabapentin (Neurontin) 100 MG capsule take 1 capsule at bedtime everyday levothyroxine (Synthroid, Levoxyl) 50 MCG tablet Take 1 tablet (50 mcg) by mouth before breakfast. 30 tablet 11 loratadine (Claritin) 10 MG tablet Take 1 tablet by mouth in the morning. nicotine polacrilex (Nicorette) 4 MG gum Chew 1 each (4 mg) every 2 (two) hours. 100 each 0 No current facility-administered medications for this visit. 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 Patient confirms easy bruising. Denies bleeding gums. Platelet count 05/25/25 was 128 * Assessment & Plan Note - Prachi Kaiser NP - 09/07/2025 10:00 AM ESTAssociated Problem(s): Bipolar disorder (HCC) Patient is not on medication at this time. Declines services. Reports that she prefers not to socialize and is content with that. * Assessment & Plan Note - Prachi Kaiser NP - 09/07/2025 10:00 AM ESTAssociated Problem(s): Hypothyroid Reports she has been off of her medication for over 1 year. Sent refill today. Advised to have TSH rechecked in 6 wks after taking levothyroxine as prescribed. Orders: levothyroxine (Synthroid, Levoxyl) 50 MCG tablet; Take 1 tablet (50 mcg) by mouth before breakfast. documented in this encounter Plan of Treatment Scheduled Orders Name Type Priority Associated Diagnoses Orde r Schedule Bacterial Vaginosis, Yeast and Trich Microbiology Routine Vaginal discharge Expected: 09/07/2025 (Approximate), Expires: 09/07/2026 Hepatitis B Core Antibody, Total Lab Routine Routine screening for STI (sexually transmitted infection) Expected: 09/07/2025 (Approximate), Expires: 09/07/2026 Hepatitis B Surface Antibody, Qualitative Lab Routine Routine screening for STI (sexually transmitted infection) Expected: 09/07/2025 (Approximate), Expires: 09/07/2026 Hepatitis B surface antigen, EIA Lab Routine Routine screening for STI (sexually transmitted infection) Expected: 09/07/2025 (Approximate), Expires: 09/07/2026 Hepatitis C Antibody with Reflex to HCV, RNA, Quantitative, Real-Time PCR Lab Routine Routine screening for STI (sexually transmitted infection) Expected: 09/07/2025 (Approximate), Expires: 09/07/2026 HIV-1/2 Antigen and Antibodies, Fourth Generation, with Reflexes Lab Routine Routine screening for STI (sexually transmitted infection) Expected: 09/07/2025 (Approximate), Expires: 09/07/2026 Syphilis Screen Lab Routine Routine screening for STI (sexually transmitted infection) Expected: 09/07/2025 (Approximate), Expires: 09/07/2026 documented as of this encounter Procedures Procedure Name Priority Date/Time Associated Diagnosis Comments CHLAMYDIA/N. GONORRHOEAE RNA, TMA, UROGENITAL Routine 09/07/2025 10:52 AM EST Vaginal discharge documented in this encounter Results * Chlamydia/N. Gonorrhoeae RNA, TMA, Vagina (09/07/2025 10:52 AM EST) CT PCR NOT DETECTED Not Detect. [facility] Comment:A not detected test result does not exclude the possibilityof infection because test results can be affected byimproper specimen collection, concurrent antibiotic therapy,or the number of organisms in the specimen which may bebelow the sensitivity of the test. As with many diagnostictests, results from the Xpert CT/NG assay should beinterpreted in conjunction with other laboratory andclinical data available to the clinician.Xpert CT/NG performance has not been evaluated in patientsless than 14 years of age. The assay should not be used forthe evaluationof suspected sexual abuse or for other medico-legalindications. Additional testing is recommended in anycircumstance when false positive or false negative resultscould lead to adverse medical, social or psychologicalconsequences. NG PCR NOT DETECTED Not Detect. [facility] Comment:A not detected test result does not exclude the possibilityof infection because test results can be affected byimproper specimen collection, concurrent antibiotic therapy,or the number of organisms in the specimen which may bebelow the sensitivity of the test. As with many diagnostictests, results from the Xpert CT/NG assay should beinterpreted in conjunction with other laboratory andclinical data available to the clinician.Xpert CT/NG performance has not been evaluated in patientsless than 14 years of age. The assay should not be used forthe evaluationof suspected sexual abuse or for other medico-legalindications. Additional testing is recommended in anycircumstance when false positive or false negative resultscould lead to adverse medical, social or psychologicalconsequences. Swab Vaginal structure / Unknown 09/07/2025 10:52 AM EST 09/07/2025 2:51 PM EST us Lilliam Pascal MD LAB MICROBIOLOGY - NERAL ORDERABLES Final Result [facility] [address] [place] [phone] documented in this encounter Visit Diagnoses Diagnosis Hypothyroidism, unspecified type- Primary Vaginal discharge Leukorrhea, not specified as infective Autoimmune thrombocytopenia (CMS/HCC) (HCC) Immune thrombocytopenic purpura Bipolar affective disorder, remission status unspecified (CMS/HCC) ([facility]) Dietary counseling Dietary surveillance and counseling Exercise counseling Routine screening for STI (sexually transmitted infection) Screening examination for venereal disease documented in this encounter Additional Health Concerns Assessment Noted Time PHQ-9 Depression Total Score: 15 025 10:48 AM EST documented as of this encounter Care Teams Skiving Machine Operator Relationship Specialty Start Date End Date Leanne Bowie NP [address] [place] [address] PCP - General Family Medicine 06/27/24 documented as of this encounter
--- OUTSIDE RECORDS SUMMARY | 2025-09-12 17:06 | XMS_ITS | Encounter Summary ---
Author Organization [employer] Address [address] [facility] 7[address] [place] [address] Care Team Providers Care Fulfillment Associate Name Role Phone Leanne Bowie TRICIA Primary Care Provider [phone] Reason for Visit * Reason Onset Date Comments Med Refill 09/10/2025 Encounter Details Date Type Department Care Team ([facility] st Contact Info) Description 09/10/2025 Refill [facility] [address] [place] [address] Lilliam Carrion MD [address] [place] [address] Social History Tobacco Use Types Packs/Day Years Used Date Smoking Tobacco: Every Day Cigarettes Passive Smoke Exposure: Current Alcohol Use Standard Drinks/Week Comments Not Asked [...] with others, in a hotel, in a retirement, living outside on the street, on a [...] documented as of this encounter Care Teams Fulfillment Associate Relationship Specialty Start Date End Date Leanne Bowie NP [address] [place] [phone] PCP - General Family Medicine 06/27/24 documented as of this encounter
--- OUTSIDE RECORDS SUMMARY | 2025-09-12 17:06 | XMS_ITS | Encounter Summary ---
Author Organization [employer] Address [address] [facility] [address] [place] [address] Care Team Providers Care Vein Pumper Name Role Phone Symone Blankenship Primary Care Provider [phone] Leanne Bowie NP Primary Care Provider Reason for Visit * Reason Onset Date Comments Nurse Triage 05/30/2024 Encounter Details Date Type Department Care Team ([facility] st Contact Info) Description 05/30/2024 Telephone [facility] [address] [place] [address] Symone Blankenship FNP [address] [place] [address] Nurse Triage Social History Tobacco Use Types [...] with others, in a hotel, in a [facility], living outside on the street, on a [...] the ear. Advised Pt to come to [facility] today. Pt agrees with disposition. Pt insuranceis changed Pt reports [place]. Call to Lulu in insurance confirms this. Protocol Used: Earache [...] documented as of this encounter Care Teams Vein Pumper Relationship Specialty Start Date End Date Symone Blankenship FNP [address] [place] [address] PCP - General Family Medicine 09/21/22 06/26/24 Leanne Bowie NP [address] [place] [address] PCP - General Family Medicine 06/27/24 documented as of this encounter
--- OUTSIDE RECORDS SUMMARY | 2025-09-12 17:06 | XMS_ITS | Encounter Summary ---
Author Organization [employer] Address [address] [facility] [address] [place] [address] Care Team Providers Care Color Control Supervisor Name Role Phone Symone Blankenship Primary Care Provider [phone] Leanne Bowie NP Primary Care Provider [phone] Reason for Visit * Reason Onset Date Comments Nurse Triage 06/20/2024 Encounter Details Date Type Department Care Team ([facility] st Contact Info) Description 06/20/2024 Telephone [facility] [address] [place] [address] Symone Blankenship FNP [address] [place] [address] Nurse Triage Social History Tobacco Use Types [...] documented as of this encounter Care Teams Color Control Supervisor Relationship Specialty Start Date End Date Symone Blankenship FNP [address] [place] [address] PCP - General Family Medicine 09/21/22 06/26/24 Leanne Bowie NP [address] [place] [address] PCP - General Family Medicine 06/27/24 documented as of this encounter
--- OUTSIDE RECORDS SUMMARY | 2025-09-12 17:06 | XMS_ITS | Encounter Summary ---
Author Organization [employer] Address [address] [facility] 7t [place] [address] Care Team Providers Care Analog Device Designer Name Role Phone Leanne Bowie NP Primary Care Provider [phone] Reason for Visit * Reason Onset Date Comments Medication Question 09/10/2025 Encounter Details Date Type Department Care Team ([facility] st Contact Info) Description 09/10/2025 Telephone [facility] [address] [place] [address] Leanne Bowie NP [address] [place] [address] Medication Question Social History Tobacco Use Types Packs/Day Years [...] encounter Miscellaneous Notes * Telephone Encounter - Mariah Negrete RN - 09/11/2025 3:56 PM EST Images from the original note were not included. TC placed to pt to inform requested medications for treatment sent to pharmacy per below provider message. No answer, LVM to call office back and ask to speak to the blue team nurses. Lilliam Pascal MD to [facility] Blue Team Nurses (Selected Message) 09/11/25 3:55 PM Medications send to pharmacy thank you! * Telephone Encounter - Mariah Negrete RN - 09/11/2025 9:54 AM EST TC placed to pt regarding request for medication. Pt requesting medication for treatment of bacterial vaginosis and yeast infection. Advised message to be sent to ordering provider for review and team nurses to return call to pt to advise when medications are sent. Pt verbalized understanding and denies questions at this time. Message forwarded to ordering provider for review. * Telephone Encounter - Zaira Han - 09/10/2025 3:41 PM EST Tc from patient reporting she tested positive for a condition recently. Patient states she is not comfortable discussing the condition. Patient is requesting medication. Please contact pt at [phone] documented in this encounter Plan of Treatment Not on file documented as of this encounter Visit Diagnoses Not on filedocumented in this encounter Additional Health Concerns Assessment Noted Time PHQ-9 Depression Total Score: 15 025 10:48 AM EST documented as of this encounter Care Teams Analog Device Designer Relationship Specialty Start Date End Date Leanne Bowie NP [address] [place] [id number] PCP - General Family Medicine 06/27/24 documented as of this encounter
--- OUTSIDE RECORDS SUMMARY | 2025-09-12 17:06 | XMS_ITS | Encounter Summary ---
Author Organization [employer] Address [address] [facility] 7t [place] [address] Care Team Providers Care Mobile Security Architect Name Role Phone Leanne Bowie TRICIA Primary Care Provider [phone] Encounter Details Date Type Department Care Team (Latest Contact Info) Description 09/07/2025 Travel Social History Tobacco Use Types Packs/Day [...] with others, in a hotel, in a intermediate, living outside on the street, on a [...] AM EDT documented as of this encounter Functional Status * Over the past 2 weeks, how often have you been bothered by any of the following problems? Question Answer Date of Assessment Author Patient Health Questionnaire-2 Score 4 09/07/2025 10:48 AM Eneida Barahona [place] * Little interest or pleasure in [...] Assessment Author 15 09/07/2025 10:48 AM Eneida Hayse Ma, [place] * Over the last 2 [...] Kaplan [place] documented as of this encounter Plan of Treatment Not on file documented as of this encounter Visit Diagnoses Not on filedocumented in this encounter Additional Health Concerns Assessment Noted Time PHQ-9 Depression Total Score: 15 09/07/ 025 10:48 AM EST documented as of this encounter Care Teams Mobile Security Architect Relationship Specialty Start Date End Date Leanne Bowie NP [address] [place] [address] PCP - General Family Medicine 06/27/24 documented as of this encounter
--- OUTSIDE RECORDS SUMMARY | 2025-09-12 17:06 | XMS_ITS | Encounter Summary ---
Author Organization [employer] Address [address] [facility] 7t [place] [address] Care Team Providers Care Signal Operator Name Role Phone Symone Blankenship Primary Care Provider [phone] Leanne Bowie NP Primary Care Provider [phone] Reason for Visit * Reason Onset Date Comments Triage pt 1 out of 4 07/15/2023 Encounter Details Date Type Department Care Team ([facility] st Contact Info) Description 07/15/2023 Telephone [facility] [address] [place] [address] Symone Blankenship FNP [address] [place] [address] Triage pt 1 out of 4 Social [...] either. Pt is advised to come to [facility] today to be seen by provider [...] on filedocumented in this encounter Care Teams Signal Operator Relationship Specialty Start Date End Date Symone Blankenship FNP [address] [place] [address] PCP - General Family Medicine 09/21/22 06/26/24 Leanne Bowie NP [address] [place] [address] PCP - General Family Medicine 06/27/24 documented as of this encounter
--- OUTSIDE RECORDS SUMMARY | 2025-09-12 17:06 | XMS_ITS | Clinical Summary ---
Author Organization [employer] Address [address] [place] [address] 7t [place] [address] Care Team Providers Care Sausage Meat Trimmer Name Role Phone Leanne Bowie RTICIA Primary Care Provider [phone] Allergies Active Allergy Reactions Criticality Noted Date Comments Amoxicillin 11/30/2022 Codeine 11/30/2022 Hydrocodone 11/30/2022 Hydrocodone-Acetaminophen Wheezing High 10/10/2018 Hydromorphone 11/30/2022 Other 03/09/2024 Medications * This document contains information received from the source organization and may not represent a complete record from that organization. gabapentin (Neurontin) 100 MG capsule take 1 capsule at bedtime everyday 09/07/20 19 Active loratadine (Claritin) 10 MG tablet Take 1 tablet by mouth in the morning. 10/13/20 21 Active nicotine polacrilex (Nicorette) 4 MG gumIndications: Tobacco use disorder Chew 1 each (4 mg) every 2 (two) hours. 100 each 05/25/20 25 Active levothyroxine (Synthroid, Levoxyl) 50 MCG tabletIndicatio ns:Hypothyroidi sm, unspecified type Take 1 tablet (50 mcg) by mouth before breakfast. 30 tablet 5 9:45 AM EST 09/07/20 25 Active albuterol 108 (90 Base) MCG/ACT inhaler INHALE 2 PUFFS BY MOUTH EVERY 4 HOURS IF NEEDED 18 g 5 9:45 AM EST 09/11/20 25 Active fluconazole (Diflucan) 150 MG tabletIndicatio ns:Vaginal discharge Take one tablet then after 72 hrs take another tablet 2 tablet 5 9:45 AM EST 09/11/20 25 Active metroNIDAZOLE (Flagyl) 500 MG tabletIndicatio ns:Vaginal discharge Take 1 tablet (500 mg) by mouth 2 times daily for 7 days. 14 tablet 9:45 AM EST 09/11/20 25 025 Active levothyroxine (Synthroid, Levoxyl) 50 MCG tablet Take 50 mcg by mouth. 02/25/20 21 025 Discontinued(Re order (will not trigger notification to Pharmacy)) albuterol 108 (90 Base) MCG/ACT inhaler INHALE 2 PUFFS BY MOUTH EVERY 4 HOURS IF NEEDED 18 g 03/02/20 24 025 Discontinued(Re order (will not trigger notification to Pharmacy)) Active Problems Problem Noted Date Diagnosed Date [...] she want to at this time - [facility] services declined. Pt reports during telehealth OBI visit that she is not currently engaged with mental health services nor does she want to at this time - [facility] services declined. History of placenta [...] update Rx -referred to PT -advised contact [facility] if sx change or worsen Benign [...] issues.. Mirta has been living in a hotel/assisted for the last month with her children. [...] intervention , Patient to reach out to [facility] team as needed, Patient to engage in OP therapy , and Patient to reach out to [facility] as needed. iMrta had services set-up with for individual therapy. [...] issues.. Mirta has been living in a hotel/assisted for the last month with her children. [...] , Patient to reach out to [facility] team as needed, Patient to engage in OP therapy , and Patient to reach out to [facility] as needed. Mirta had services set-up with [...] she want to at this time - [facility] services declined. Pt reports during telehealth OBI visit that she is not currently engaged with mental health services nor does she want to at this time - [facility] services declined. Assessment & Plan (09/07/2025 10:57 AM EST): Patient is not on medication at this time. Declines services. Reports that she prefers not to socialize and is content with that. 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 Patient confirms easy bruising. Denies bleeding gums. 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 Assessment & Plan (09/07/2025 10:57 AM EST): Reports she has been off of her medication for over 1 year. Sent refill today. Advised to have TSH rechecked in 6 wks after taking levothyroxine as prescribed. Orders: levothyroxine (Synthroid, Levoxyl) 50 MCG tablet; Take 1 tablet (50 mcg) by mouth before breakfast. Resolved Problems Problem Noted Date Diagnosed Date Resolved Date Substance abuse (CMS/HCC) 03/14/2021 Overview (07/15/2023): Problem added by Discern Expert Encounters Date Type Department Care Team Description 09/11/2025 Orders Only [address] [address] Lilliam Carrion MD Vaginal discharge (Primary Dx) 09/10/[address] [address] Leanne Bowie NP Medication Question 09/10/[address] [address] Lilliam Carrion MD 09/07/2025 10:00 AM EST Office Visit [address] [address] Lilliam Carrion MD Hypothyroidism, unspecified type (Primary Dx); Vaginal discharge; Autoimmune thrombocytopenia (CMS/HCC) ([facility]); Bipolar affective disorder, remission status unspecified (CMS/HCC) ([facility]); Dietary counseling; Exercise counseling; Routine screening for STI (sexually transmitted infection) 09/07/2025 Travel 09/06/[address] [address] Prachi Kaiser, TRICIA Chart Prep 08/31/2025 Telephone [facility] [address] [place] [address] Leanne Bowie NP Lab Orders 08/27/2025 Telephone [facility] [address] [place] [address] Leanne Bowie NP Nurse Triage 07/06/2025 Telephone [facility] [address] [place], [place] [phone] Leanne Bowie NP Chart Prep from Last [...] with others, in a hotel, in a assisted, living outside on the street, on a [...] Mass Index 25.44 09/07/2025 10:09 AM EST Plan of Treatment Health Maintenance Due Date Last Done Comments HIV Screening 1987 Family Planning (PISQ) 2002 HPV Vaccines (1 - 3-dose series) 2002 Hepatitis C Screening 2005 Hepatitis B Vaccines (1 of 3 - 19+ 3-dose series) 2006 Pneumococcal Vaccine: Pediatrics (0 to 5 Years) and At-Risk Patients (6 to 49) Years (1 of 2 - PCV) 2006 Pap Smear 2008 Cervical Cancer Screening 2017 HPV/Cotest 2017 COVID-19 Vaccine ( - 2024-2 6 season) 2025 Influenza Vaccine (#1) 2025 Depression Monitoring 03/07/2026 09/07/2025 , 09/07/2025 Alcohol/Substance Use Screening 09/07/2026 09/07/2025 Disability Screening 09/07/2026 09/07/2025 SDOH Screening 09/07/2026 09/07/2025 Tobacco Screening 09/07/2026 09/07/2025 Lipid Panel 03/01/2029 03/01/2024 DTaP/Tdap/Td Vaccines (4 [...] Procedure Name Priority Date/Time Associated Diagnosis Comments BACTERIAL VAGINOSIS PANEL Routine 09/07/2025 10:52 AM EST CHLAMYDIA/N. GONORRHOEAE RNA, TMA, UROGENITAL Routine 09/07/2025 10:52 AM EST Vaginal discharge T-SPOT(R).TB Routine 08/31/2025 2:10 PM EST Screening for tuberculosis LIPID PANEL, STANDARD Routine 03/01/2024 1:41 PM EDT Dizziness from Last 3 Months or Most Recently Relevant to Health Maintenance Results * (ABNORMAL) Bacterial Vaginosis (09/07/2025 10:52 AM EST) TRICHOMONAS VAGINALIS DETECTION BY PCR NOT DETECTED Not Detect [facility] BACTERIAL VAGINOSIS DETECTION BY PCR POSITIVE(A) Negative [facility] Comment:The BV organism targ ets of the Xpert Xpress MVP test can becommensal in women; Xpert Xpress MVP positive results forbacterial vaginosis should be considered in conjunction withother clinical and patient information to determine thedisease status. Organisms that are not detected by the XpertXpress MVP test have also been reported to be associatedwith BV and aerobic vaginitis.The Xpert Xpress MVP test performance has not been evaluatedin patients under the age of 14. AZIZA GROUP DETECTION BY PCR DETECTED(A) Not Detect [facility] Aziza glab krusei PCR NOT DETECTED Not Detect [facility] 09/07/2025 10:5 2 AM EST 09/07/2025 2:52 PM EST Lilliam Pascal MD LAB MICROBIOLOGY - NERNJ ORDERABLES Final Result [facility] [address] [place] [phone] * Chlamydia/N. Gonorrhoeae RNA, TMA, Vagina (09/07/2025 10:52 AM EST) CT PCR NOT DETECTED Not Detect. [facility] Comment:A not detected test result does [...] psychologicalconsequences. NG PCR NOT DETECTED Not Detect. [facility] Comment:A not detected test result does [...] 10:52 AM EST 09/07/2025 2:51 PM EST Lilliam Pascal MD LAB MICROBIOLOGY - NERNJ ORDERABLES Final Result [facility] [address] [place] [phone] * T-SPOT??.TB (08/31/2025 2:10 PM EST) T Spot TB Negative Negative [facility] Comment:A negative test resu lt does not exclude the possibilityof exposure to or infection with Mycobacteriumtuberculosis (M. tuberculosis). Patients with recentexposure to TB infected individuals exhibiting anegative T-SPOT.TB result should be considered forretesting within 6 weeks or if other relevant clinicalsymptoms indicate. Results from T-SPOT.TB testing mustbe used in conjunction with each individual'sepidemiological history, current medical status,and results of other diagnostic evaluations.The T-SPOT.TB test is qualitative and results arereported as positive, borderline, or negative, giventhat the test controls perform as expected. In linewith the Centers for Disease Control and Prevention's2010 recommendation to report quantitative measurementsalongside the qualitative result, the laboratoryprovides spot counts for informational purposes only.The T-SPOT.TB test should not be interpreted as aquantitative test. TS PANEL A 0 [facility] TS PANEL B 0 [facility] Negative Control Passed [facility] Positive Control Passed [facility] Comment:For additional infor bhanu, please refer tohttp://education.[employer]/faq/HJX192(This link is being provided for informational/educational purposes only.)THIS TEST WAS PERFORMED AT:[employer] [id number] [place] [address]XASAZQFLETA DILLON MD,PHD 08/31/2025 2:10 PM EST 08/31/2025 4:10 PM EST us Leanne Bowie SUPERVISOR ASSEMBLING LAB BLOOD ORDERABLES Final Resul t [facility] [address] [place] [phone] * Lipid Panel, Standard (03/01/2024 1:41 PM EDT) Triglycerides 91 <150 mg/dL [facility] Comment:Desirable Triglyceri de: less than 150 mg/dLBorderline High Triglyceride 150-199 mg/dLHigh Triglyceride: 200-499 mg/dLVery High Triglyceride: greater than or equal to 5OO mg/dL Cholesterol 138 <200 mg/dL [facility] Comment:Desirable Cholestero l: less than 200 mg/dLBorderline High Cholesterol: 200-239 mg/dLHigh Cholesterol: greater than 239 mg/dL LDL Cholesterol Calculated 76 <100 mg/dL [facility] Comment:Desirable LDL: less than 100 mg/dLNear Optimal/Above Optimal LDL: 110- 129 mg/dLBorderline High LDL: 130-159 mg/dLHigh LDL: 160-189 mg/dLVery High LDL: greater than or equal to 190 mg/dL HDL Cholesterol 44 >40 mg/dL [facility] Comment:Desirable HDL: great er than 40 mg/dL Note: This HDL assay may give artificially low results in patients with liver disease. Blood Venous blood specimen / Unknown 03/01/2024 1:41 PM EDT 03/01/2024 4:15 PM EDT us Shari Swartz DO LAB BLOOD ORDERABLES Final R esult [facility] [address] [place] [address] [phone] from Last 3 Months or Most Recently Relevant to Health Maintenance Insurance [facility] STANDARD [facility] < 65 MEDICARE Care Teams Sausage Meat Trimmer Relationship Specialty Start Date End Date Leanne Bowie NP [address] [place] [phone] PCP - General Family Medicine 06/27/24
--- OUTSIDE RECORDS SUMMARY | 2025-09-12 17:06 | XMS_ITS | Encounter Summary ---
Author Organization [employer] Address [address] [facility] 7t [place] [address] Care Team Providers Care Aircraft Maintenance Technician Name Role Phone Leanne Bowie TRICIA Primary Care Provider [phone] Encounter Details Date Type Department Care Team (Late st Contact Info) Description 09/11/2025 Orders Only [facility] [address] [place] [address] Lilliam Carrion MD [address] [place] [address] Vaginal discharge (Primary Dx) Social History Tobacco Use Types Packs/Day Years [...] with others, in a hotel, in a nursing home, living outside on the street, on a [...] as of this encounter Visit Diagnoses Diagnosis Vaginal discharge- Primary Leukorrhea, not specified as infective documented in this encounter Additional Health Concerns Assessment Noted Time PHQ-9 Depression Total Score: 15 025 10:48 AM EST documented as of this encounter Care Teams Aircraft Maintenance Technician Relationship Specialty Start Date End Date Leanne Bowie NP [address] [place] [phone] PCP - General Family Medicine 06/27/24 documented as of this encounter
[2025-09-13 09:16] LABS: Syphilis Screen Nonreactive (Nonreactive)
[2025-09-13 09:22] LABS: HBS Num1 3.48 mIU/mL (0-7.99); HBc Num1 0.23 S/CO (0.00-0.79); HBsAGNum1 0.39 S/CO (0.00-0.99); HIV Num 1 0.06 S/CO (0.00-0.99); Hepatitis B Surface Antigen Negative (Negative); ~HepC Num1 0.14 S/CO (0.00-0.79); ~Hepatitis B Surface Antibody NONREACTIVE (Nonreactive); ~Hepatitis C Antibody Nonreactive (Nonreactive)
== END 2025-09-12 09:12 | disposition home or self-care (01) ==
LOC: HO.HHCL 09:11
PROVIDERS: PCP Internal Medicine; Visit Provider Internal Medicine
DX: Z11.4 Encounter for screening for human immunodeficiency virus [HIV] (principal); Z20.2 Contact with and (suspected) exposure to infections with a predominantly sexual mode of transmission
CPT/HCPCS: 36415; 86704; 86706; 86780; 86803; 87340; 87389

== ENCOUNTER 2025-10-17 14:29 | Outpatient (REF) | payer OTHER, SELFPAY ==
--- OUTSIDE RECORDS SUMMARY | 2025-10-17 14:32 | XMS_ITS | Clinical Summary ---
Author Organization [facility] Prior to 08/25/2024 Address [address] [place] [address] Care Team Providers Care Orthopedically Impaired Teacher Name Role Phone Community, Pcp Primary Care [...] needed (nausea). 90 tablet 1 05/06/2020 Active OX-Zml-EF-Spencer-3 ( GUMMIES/DHA & FA) 0.4-32.5 MG Chew [...] subsequent 10/10/2018 01/03/2019 Overview: 1. [facility] site: [place] 2. Delivery site: [facility] 3. Dating criteria: LMP only 3. Blood [...] HIGH RISK PATIENTS (#1) 04/28 Care Teams Orthopedically Impaired Teacher Relationship Specialty Start Date End Date Community, Pcp PCP - General 11/23/07
--- OUTSIDE RECORDS SUMMARY | 2025-10-17 14:32 | XMS_ITS | Encounter Summary ---
Author Organization [facility] Prior to 08/25/2024 Address [address] [place] [address] Care Team Providers Care Foundry Laborer Coreroom Name Role Phone Community, Pcp Primary Care Provider Unavailabl e Reason for Referral * Non GLENNY (Urgent) - Authorized/Booked Specialty Diagnoses / Procedures Referred By Contjeri t Referred To Contact Endocrinology Diagnoses Hyperthyroidism Procedures REFERRAL TO ENDOCRINOLOGY Tia Wong MD [address] [place] [address] [place] [address] Referral ID Status Reason Start Date Expiration Date V isits Requested Visits Authorized [id number] Authorized/B ooked 10/14/2018 10/14/2019 1 1 Encounter Details Date Type Department Care Team Description 10/14/2018 Telephone OBGYN - [address] [address] Tia Wong MD [address] [place] [phone] Social History Tobacco Use Types Packs/Day Years Used Date Smoking Tobacco: Every Day Cigarettes 0.3 20 Started: 02/22/1998 Smokeless Tobacco: Never Alcohol Use Standard Drinks/Week Comments No 0 (1 standard drink = 0.6 oz pur e alcohol) rarely Sex Assigned at Date Recorded Not on file documented as of this encounter Miscellaneous Notes * Telephone Encounter - Tia Wong MD - 10/14/2018 12:03 PM EST ----- Message from Naomy Ghotra M.A. sent at 10/14/2018 9:48 AM EST ----- Patient does not have an therapy site coordinator and is only taking the levothyroxine during pregnany. Patient also states that the prenatals we sent in are not covered by insurance, please send in new Rx for prenatals and referral for endo.-MO documented in this encounter Plan of Treatment Not on file documented as of this encounter Visit Diagnoses Diagnosis Hyperthyroidism- Primary Thyrotoxicosis without mention of goiter or other cause, without mention of thyrotoxic crisis or storm documented in this encounter Care Teams Foundry Laborer Coreroom Relationship Specialty Start Date End Date Community, Pcp PCP - General 11/23/07 documented as of this encounter
--- OUTSIDE RECORDS SUMMARY | 2025-10-17 14:32 | XMS_ITS | Encounter Summary ---
Author Organization [facility] Prior to 08/25/2024 Address [address] [place] [address] Care Team Providers Care Sales Rep Name Role Phone Community, Pcp Primary Care Provider Unavailabl e Reason for Visit * Reason Onset Date Comments Medication 10/19/2018 Encounter Details Date Type Department Care Team Description 10/19/2018 Telephone OBGYN - [facility] [address] [place], [place] [phone] Tia Wong MD [address] [place] [phone] Medication Social History Tobacco Use Types Packs/Day [...] pharmacist: Pharmacy[facility] - [facility] Pharmacist Name: [facility] Pharmacy Name of the medication - What is the specific problem or interaction? Patient requests new rx: can we use multi-dhasoft gel. [facility] ([phone]). Please send rx for this so we can order for pt. This is covered by imsurance. If the patient is having a problem with taking the med - how long has the problem been going on? N/A documented in this encounter Plan of Treatment Not on file documented as of this encounter Visit Diagnoses Not on filedocumented in this encounter Care Teams Sales Rep Relationship Specialty Start Date End Date Community, Pcp PCP - General 11/23/07 documented as of this encounter
--- OUTSIDE RECORDS SUMMARY | 2025-10-17 14:32 | XMS_ITS | Encounter Summary ---
Author Organization [facility] Prior to 08/25/2024 Address [address] [place] [address] Care Team Providers Care Direct Care Specialist Name Role Phone Community, Pcp Primary Care Provider Unavailabl e Encounter Details Date Type Department Care Team Description 10/12/2018 Zika Virus Medical Records [address] [place] [address] Abstract, Provider Social History Tobacco Use Types [...] on filedocumented in this encounter Care Teams Direct Care Specialist Relationship Specialty Start Date End Date Community, Pcp PCP - General 11/23/07 documented as of this encounter
[2025-10-17 16:59] LABS: Bacterial Vaginosis PCR POSITIVE (Negative); Candida Group PCR NOT DETECTED (Not Detect); Candida glab krusei PCR NOT DETECTED (Not Detect); Trichomonas vaginalis PCR NOT DETECTED (Not Detect)
== END 2025-10-17 14:30 | disposition home or self-care (01) ==
LOC: HO.LNP 14:29
DX: B37.9 Candidiasis, unspecified (principal); Z20.2 Contact with and (suspected) exposure to infections with a predominantly sexual mode of transmission
CPT/HCPCS: 81515